=== PATIENT | female | born 1980 | race Caucasian/White ===

== ENCOUNTER 2020-01-04 17:04 | Emergency (ER) | payer OTHER, SELFPAY ==
[2020-01-04 17:26] VITALS: BP 141/85; PULSE 81; RESP 18; TEMP 37.1; O2SAT 100
--- NOTE | 2020-01-04 17:36 | ED.GENADULT ---
HPI - General Adult General Chief complaint: Upper Respiratory Infection Stated complaint: upper respiratory infection Time Seen by Provider: 01/04/20 17:36 Source: patient Mode of arrival: ambulatory Limitations: no limitations History of Present Illness HPI narrative: 39-year-old female patient presents the [facility] care with complaints URI symptoms for the past 3 weeks. Patient states she has had a lot of pain and pressure to her forehead and under her eyes. Patient states she has had runny nose, stuffy nose, sneezing and a little bit of a nonproductive cough. Patient states that time she has had to use her inhaler. Denies any chest pain, nausea, vomiting or diarrhea. Patient states she has been using her inhaler, nasal spray, Zyrtec and Benadryl without much relief. Related Data Home Medications Medication Instructions Recorded Confirmed albuterol sulfate [Ventolin HFA] INHALATION 01/04/20 dextroamphetamine-amphetamine PO 01/04/20 [Adderall XR] duloxetine mg PO 01/04/20 fluticasone propionate INTRANASAL 01/04/20 hydrochlorothiazide 01/04/20 lisinopril 01/04/20 metformin mg 01/04/20 pantoprazole PO 01/04/20 Allergies Allergy/AdvReac Type Severity Reaction Status Date / Time clonazepam Allergy Unknown Verified 08/05/11 15:13 sitagliptin Allergy Unknown Verified 03/30/15 12:26 tramadol Allergy Unknown Verified 03/30/15 12:26 Review of Systems Review of Systems: Narrative: CONSTITUTIONAL: Denies fever, chills, or sweats. EYES: Denies visual changes, redness, or discharge. ENT: Positive rhinorrhea, congestion, sore throat, positive right otalgia. CARDIOVASCULAR: Denies chest pain, palpitations, or edema. RESPIRATORY: Positive nonproductive cough with intermittent dyspnea. GASTROINTESTINAL: Denies abdominal pain, nausea, vomiting, or diarrhea. GENITOURINARY: Denies dysuria or hematuria. SKIN: Denies rash or itching. MUSCULOSKELETAL: Denies back pain, joint pain, or myalgia. NEUROLOGIC: Positive headache, denies numbness, or weakness. PSYCHIATRIC: Denies anxiety or depression. [facility] Past Medical History Medical History (Updated 01/04/20 @ 17:55 by HARRY Morales) Anemia Anxiety Asthma Bronchitis Diabetes Endometriosis GERD (gastroesophageal reflux disease) Hypertension Hypothyroidism Pericarditis Pneumonia Seizures Tonsillitis Tuberculosis Exposed to TB at age 4, took medication Surgical History Surgical History (Updated 01/04/20 @ 17:39 by HARRY Morales) H/O: hysterectomy History of cholecystectomy Hx of tonsillectomy Family History Family History Mother Family history of malignant neoplasm of breast in first degree relative Father Family history of malignant neoplasm of esophagus Sibling Family history of malignant neoplasm of esophagus Social History Social History Alcohol intake: current Comments At the time of my signature I agree with nursing past medical history, surgical, social, and family history. There is no relevant family history pertinent to the presenting complaint. Exam Narrative: Exam Narrative: GENERAL: Well-appearing, well-nourished, and in no acute distress. HEAD: Normocephalic, atraumatic. Tenderness noted to frontal maxillary sinuses on palpation EYES: PERRLA and EOMI. ENT: Nares with erythema and edema noted bilaterally, patent, no rhinorrhea or epistaxis. Mucous membranes moist. Posterior pharynx with slight erythema but no tonsil enlargement no exudates or lesions present. Left ear drum does appear slightly red. NECK: Supple. No lymphadenopathy CHEST: Clear to auscultation. No respiratory distress. Patient able talk in complete sentences. HEART: Regular rate and rhythm. No murmur heard. Normal peripheral pulses. ABDOMEN: Soft, nontender, nondistended, normal active bowel sounds. EXTREMITIES: Normal range of motion. No mick
== END 2020-01-04 18:06 | disposition home or self-care (01) ==
PROVIDERS: Emergency Provider Nurse Practitioner Family
DX: J01.00 Acute maxillary sinusitis, unspecified (principal); Z20.828 Contact with and (suspected) exposure to other viral communicable diseases; Z86.2 Personal history of diseases of the blood and blood-forming organs and certain disorders involving the immune mechanism; F41.9 Anxiety disorder, unspecified; J45.909 Unspecified asthma, uncomplicated; E11.9 Type 2 diabetes mellitus without complications; K21.9 Gastro-esophageal reflux disease without esophagitis; I10 Essential (primary) hypertension; E03.9 Hypothyroidism, unspecified; N80.9 Endometriosis, unspecified; Z79.84 Long term (current) use of oral hypoglycemic drugs
CPT/HCPCS: 87081; 87880; 99213; G0463

== ENCOUNTER 2020-06-13 19:27 | Emergency (ER) | payer OTHER, SELFPAY ==
--- NOTE | 2020-06-13 19:32 | ED.GENADULT ---
HPI - General Adult General Chief complaint: Skin/Abscess/Foreign Body Stated complaint: blisters covering arm/face/hands Time Seen by Provider: 06/13/20 19:32 Source: patient Mode of arrival: ambulatory Limitations: no limitations History of Present Illness HPI narrative: 40-year-old female patient presents to the [facility] with complaints of a rash to the right arm, right index finger and the left side of the nose for the past week. Patient states she was diagnosed with COVID-19 on June 02 and her symptoms started on May 29. Patient states that she did finish her 14-day quarantine. Patient states she is still feeling a little winded at times with some chest pain or shortness of breath that occurs at times. Patient states that she does have history of eczema but states it has never been this bad. Patient states that she has been using some try Symlin cream to the rash denies any itching to the area but states that it sometimes does burn. Patient states she is also been putting some antibiotic ointment on it at night. Related Data Home Medications Medication Instructions Recorded Confirmed lisinopril 5 mg PO DAILY 01/04/20 06/13/20 metformin 500 mg PO DAILY 01/04/20 06/13/20 dextroamphetamine-amphetamine 30 mg PO DAILY 06/13/20 06/13/20 [Adderall XR] duloxetine 60 mg PO DAILY 06/13/20 06/13/20 hydrochlorothiazide 25 mg PO DAILY 06/13/20 06/13/20 Allergies Allergy/AdvReac Type Severity Reaction Status Date / Time Sulfa (Sulfonamide AdvReac Intermediate Nausea and Verified 06/13/20 19:55 Antibiotics) Vomiting Review of Systems Review of Systems: Narrative: CONSTITUTIONAL: Denies fever, chills, or sweats. EYES: Denies visual changes, redness, or discharge. ENT: Denies rhinorrhea, congestion, sore throat, or otalgia. CARDIOVASCULAR: Positive chest pain when laying flat, denies palpitations, or edema. RESPIRATORY: Denies cough, positive intermittent dyspnea. GASTROINTESTINAL: Denies abdominal pain, nausea, vomiting, or diarrhea. GENITOURINARY: Denies dysuria or hematuria. SKIN: Positive rash to right arm, right index finger and left side of nose, denies itching. MUSCULOSKELETAL: Denies back pain, joint pain, or myalgia. NEUROLOGIC: Denies headache, numbness, or weakness. PSYCHIATRIC: Denies anxiety or depression. [facility] Past Medical History Medical History Anemia Anxiety Asthma Bronchitis Diabetes Endometriosis GERD (gastroesophageal reflux disease) Hypertension Hypothyroidism Pericarditis Pneumonia Seizures Tonsillitis Tuberculosis 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 Comments At the time of my signature I agree with nursing past medical history, surgical, social, and family history. There is no relevant family history pertinent to the presenting complaint. Exam Narrative: Exam Narrative: GENERAL: Well-appearing, well-nourished, and in no acute distress. HEAD: Normocephalic, atraumatic. EYES: PERRLA and EOMI. ENT: Nares clear, no rhinorrhea or epistaxis. Mucous membranes moist. NECK: Supple. No lymphadenopathy CHEST: Clear to auscultation. No respiratory distress. Patient able talk in clear complete sentences. HEART: Regular rate and rhythm. murmur heard on auscultation. Normal peripheral pulses. ABDOMEN: Soft, nontender, nondisten
[2020-06-13 19:48] VITALS: BP 144/106; PULSE 90; RESP 16; TEMP 37.2; O2SAT 98
[2020-06-13 19:55] VITALS: BP 144/106; PULSE 90; RESP 16; TEMP 37.2; O2SAT 98
--- NOTE | 2020-06-13 20:06 | ECG_ITS ---
Measurements Intervals [place] Rate: 93 P: 26 HI: 145 QRS: 19 QRSD: 87 T: 71 QT: 352 QTc: 439 Interpretive Statements SINUS RHYTHM BORDERLINE ST-T WAVE ABNORMALITY- ANTEROLAT/HIGH LAT LEADS BASELINE ARTIFACT- II, III, AVF BORDERLINE ECG Electronically Signed On 06-14-2020 7:01:07 RAMP MANAGER by Varun yAon D.O.
[2020-06-13 20:15] VITALS: BP 137/82; PULSE 95
== END 2020-06-13 20:18 | disposition home or self-care (01) ==
PROVIDERS: Emergency Provider Nurse Practitioner Family
DX: L20.82 Flexural eczema (principal); J45.909 Unspecified asthma, uncomplicated; E11.9 Type 2 diabetes mellitus without complications; K21.9 Gastro-esophageal reflux disease without esophagitis; I10 Essential (primary) hypertension; E03.9 Hypothyroidism, unspecified; N80.9 Endometriosis, unspecified
CPT/HCPCS: 93005; 99213; G0463

== ENCOUNTER 2020-09-20 11:30 | Emergency (ER) | payer OTHER, SELFPAY ==
--- NOTE | ~2020-09-20 | CT_ITS ---
EXAMINATION: CT brain wo con DATE: 09/20/2020 11:55 INDICATION: Loss of consciousness. TECHNIQUE: Computed tomography (CT) of the head was performed without intravenous contrast. The mA wa s adjusted according to patient size. Iterative reconstruction technique was employed. The dose-lengt h product was 605.33 mGy-cm. COMPARISON: Head CT 06/22/2007 FINDINGS: There is no intracranial hemorrhage, acute infarction, or abnormal intracranial mass lesion . The ventricles are normal in size. There is a left frontal lateral scalp hematoma. There is mucosal thickening in the paranasal sinuses. The mastoid air cells are normal. The orbits are normal. IMPRESSION: 1. Normal brain. Reviewed, dictated and finalized at location A. UNTING LECTURER IMPRESSION: 1. Normal brain.
--- NOTE | ~2020-09-20 | XR_ITS ---
EXAMINATION: XR hip LT min 3V w AP pelvis DATE: 09/20/2020 12:22 INDICATION: Left hip pain. Fall. TECHNIQUE: An anteroposterior view pelvis and 3 views of left hip on 4 radiographs were obtained. COMPARISON: None. FINDINGS: Bone alignment is normal. No fracture. There is mild osteoarthritis of the hips characteriz ed by tiny osteophytes. IMPRESSION: 1. Mild osteoarthritis of the hips. Reviewed, dictated and finalized at location A. ULATING BATH OPERATOR
--- NOTE | ~2020-09-20 | XR_ITS ---
EXAMINATION: XR ribs LT 2V w CXR 2V DATE: 09/20/2020 12:22 INDICATION: Left chest pain. Fall. TECHNIQUE: Frontal and lateral views of the chest and 3 views of the left ribs were obtained. COMPARISON: Chest 2 views 03/07/2015 FINDINGS: CHEST TWO VIEWS: There is no pneumonia, pleural effusion, or pneumothorax. The heart size is normal. Surgical clips in the right upper quadrant are likely from cholecystectomy. LEFT RIBS: There is no rib fracture. IMPRESSION: 1. No rib fracture. Reviewed, dictated and finalized at location A. WOUND IMPRESSION: 1. No rib fracture.
[2020-09-20 11:32] VITALS: BP 173/96; PULSE 87; RESP 20; TEMP 36.8; O2SAT 100
[2020-09-20 11:45] VITALS: BP 154/79; PULSE 92; RESP 17; TEMP 36.6; O2SAT 98
--- NOTE | 2020-09-20 11:49 | PC.NURSE ---
Pt to CT at this time via stretcher.
[2020-09-20] MEDS: ONDANSETRON HCL ODT 4 MG TABLET PO (12:30)
--- NOTE | 2020-09-20 12:30 | ED.FALL ---
HPI - Fall General Chief Complaint: Fall Stated Complaint: fall, rib pain, loc Time Seen by Provider: 09/20/20 12:09 Source: patient Mode of arrival: ambulatory Limitations: no limitations History of Present Illness HPI Narrative: Patient is a 40-year-old female complaining of left head, left rib and left hip pain after she fell down the stairs prior to arrival. Patient states that she was holding her dog while walking down the stairs and the dog pulled her and that is when she went down the stairs, possible loss of consciousness, lasted for only a few seconds. Patient denies any neck pain, chest pain, abdominal pain or any other extremity pain/injury. Prolonged down time: no Symptoms prior to fall: none Severity scale (1-10): 9 Quality: aching Related Data Home Medications Medication Instructions Recorded Confirmed lisinopril 5 mg PO DAILY 01/04/20 06/13/20 metformin 500 mg PO DAILY 01/04/20 06/13/20 dextroamphetamine-amphetamine 30 mg PO DAILY 06/13/20 06/13/20 [Adderall XR] duloxetine 60 mg PO DAILY 06/13/20 06/13/20 hydrochlorothiazide 25 mg PO DAILY 06/13/20 06/13/20 Allergies Allergy/AdvReac Type Severity Reaction Status Date / Time Sulfa (Sulfonamide AdvReac Intermediate Nausea and Verified 06/13/20 19:55 Antibiotics) Vomiting Review of Systems Review of Systems: All systems reviewed & are unremarkable except as noted in HPI and below Constitutional: Constitutional: Denies body ache(s), Denies chills, Denies excessive sweating, Denies fatigue, Denies fever(s), Denies lethargy, Denies malaise, Denies weakness and Denies weight loss Eyes: Eyes: Denies blurry vision, Denies change in vision and Denies loss of vision ENT: Denies dizziness, Denies ear discharge, Denies headache(s), Denies lip swelling, Denies epistaxis, Denies nasal congestion, Denies neck pain, Denies throat swelling and Denies tongue swelling Cardiovascular: Cardiovascular: Denies chest pain, Denies chest pain at rest, Denies chest pain with activity, Denies diaphoresis, Denies rapid heart rate, Denies edema, Denies irregular heart rhythm, Denies lightheadedness, Denies palpitations, Denies dyspnea and Denies dyspnea on exertion Respiratory: Respiratory: Denies chest congestion, Denies cough, Denies hemoptysis, Denies dyspnea and Denies dyspnea on exertion Gastrointestinal: Gastrointestinal: Denies abdominal pain, Denies melena, Denies hematochezia, Denies diarrhea, Denies nausea, Denies vomiting and Denies hematemesis Musculoskeletal: Musculoskeletal: Denies abnormal gait, Denies deformity, Denies joint swelling, Denies limited range of motion, Denies neck pain and Denies numbness Neurologic: Denies Abnormal speech present, Denies abnormal gait, Denies confusion, Denies dizziness, Denies focal weakness, Denies loss of vision, Denies numbness, Denies Other visual disturbances, Denies Sensory deficit (Neuro) and Denies weakness Psychiatric: Psychiatric: Denies confusion, Denies depression, Denies auditory hallucinations, Denies homicidal ideation and Denies suicidal ideation Endocrine: Endocrine: Denies cold intolerance, Denies excessive sweating, Denies fatigue, Denies heat intolerance and Denies palpitations Hematologic/Lymphatic: Hematologic/Lymphatic: Denies easy bleeding and Denies easy bruising Allergic/Immunologic: Allergic/Immunologic: Denies lip swelling, Denies throat swelling and Denies tongue swelling PMFSH Past Medical History Medical History Anemia Anxiety Asthma Bronchitis Diabetes Endometriosis GERD (gastroesophageal reflux disease) Hypertension Hypothyroidism Pericarditis Pneumonia Seizures Tonsillitis Tuberculosis Exposed to TB at age 4, took medication Surgical History Surgical History H/O: hysterectomy History of cholecystectomy Hx of tonsillectomy Family History Family History (Reviewed 09/20/20 @
[2020-09-20] MEDS: HYDROcodone/acetaminophen (*CRX) 5-325 MG TABLET 1 TAB PO (12:37)
[2020-09-20 13:20] VITALS: BP 118/75; PULSE 78; RESP 16; O2SAT 100
[2020-09-20] MEDS: KETOROLAC 30 MG/ML VIAL (*BKC) IM (13:20)
== END 2020-09-20 13:21 | disposition home or self-care (01) ==
LOC: ANHED 13:12
PROVIDERS: Emergency Provider Emergency Medicine
DX: S09.90XA Unspecified injury of head, initial encounter (principal); S20.212A Contusion of left front wall of thorax, initial encounter; S70.02XA Contusion of left hip, initial encounter; W10.9XXA Fall (on) (from) unspecified stairs and steps, initial encounter
CPT/HCPCS: 70450; 71046; 71100; 73502; 96372; 99284; A9270; J1885

== ENCOUNTER 2020-09-29 08:42 | Emergency (ER) | payer OTHER, SELFPAY ==
--- NOTE | ~2020-09-29 | CT_ITS ---
EXAMINATION: CT diagnostic chest wo con EXAM DATE: 09/29/2020 09:12 INDICATION: Initial encounter following injury, with pain of the left-sided chest. Fall with shortnes s of air. TECHNIQUE: Spiral CT of the chest without contrast. Axial, coronal and sagittal images were reviewe d. Coronal maximum intensity pixel images of chest reviewed. The dose-length product (DLP) for this examination was 690.53 mGy-cm. The exposure was tailored according to patient size (auto mA exposur e control), and iterative reconstruction (ASIR) was used as additional dose reduction technique. Comp arison is made to prior examination from 02/14/2014. FINDINGS: The lungs are clear. There are no pleural or pericardial effusions. Tracheobronchial t ree is patent. There is no mediastinal, hilar or axillary lymphadenopathy. There is no pneumothor ax. Heart normal in size. No evidence of coronary arterial calcification. There are cholecystect abdirizak clips. Splenule. 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 No acute fractures identified. Consider educating patient that even if there is a radiographically oc cult nondisplaced rib fracture, there is no specific treatment other than to refrain from activity th at prevents healing. Mild to moderate thoracic spondylosis. IMPRESSION: 1. Unremarkable CT chest examination. Reviewed, dictated and finalized at location A.
[2020-09-29 08:45] VITALS: BP 141/100; PULSE 100; RESP 20; TEMP 36.4; O2SAT 100
[2020-09-29 09:35] VITALS: BP 130/76; PULSE 81; O2SAT 97
--- NOTE | 2020-09-29 09:53 | ED.FALL ---
HPI - Fall General Chief Complaint: Fall Stated Complaint: rib pain from previous fall Time Seen by Provider: 09/29/20 08:47 History of Present Illness HPI Narrative: Patient is a 40-year-old female who presents ER with left chest wall pain. Ongoing for the last week. Patient reports she fell down her steps at home and suffered injury. She came to the ER and had x-rays of her ribs which showed no fracture. She had been taking muscle relaxers and anti-inflammatories without improvement. Patient has having no runny nose/sore throat/productive cough. No fevers or chills. She does report that she sneezed all day and had sudden increase in her pain on the left side. She also feels like she has some mild swelling beneath her breast on the left side. Patient also reports when she twists to wipe herself while using the restroom she will get pain in her side and then will also have some referred pain into the right side. No numbness or tingling across the chest wall. Related Data Home Medications Medication Instructions Recorded Confirmed lisinopril 5 mg PO DAILY 01/04/20 06/13/20 metformin 500 mg PO DAILY 01/04/20 06/13/20 dextroamphetamine-amphetamine 30 mg PO DAILY 06/13/20 06/13/20 [Adderall XR] duloxetine 60 mg PO DAILY 06/13/20 06/13/20 hydrochlorothiazide 25 mg PO DAILY 06/13/20 06/13/20 Allergies Allergy/AdvReac Type Severity Reaction Status Date / Time Sulfa (Sulfonamide AdvReac Intermediate Nausea and Verified 09/29/20 08:49 Antibiotics) Vomiting Review of Systems Review of Systems: All systems reviewed & are unremarkable except as noted in HPI and below Constitutional: Constitutional: Denies chills, Denies fever(s) and Denies weakness ENT: Denies nasal congestion and Denies sore throat Cardiovascular: Cardiovascular: Reports chest pain, Denies rapid heart rate and Denies radiating jaw, neck or arm pain Respiratory: Respiratory: Denies cough, Denies dyspnea and Denies wheezing Neurologic: Denies focal weakness and Denies numbness PMFSH Past Medical History Medical History Anemia Anxiety Asthma Bronchitis Diabetes Endometriosis GERD (gastroesophageal reflux disease) Hypertension Hypothyroidism Pericarditis Pneumonia Seizures Tonsillitis Tuberculosis 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 HEAD: Normocephalic, atraumatic. CHEST: Clear to auscultation. No respiratory distress. No visual evidence of trauma. Tender palpation along the lateral to anterior chest wall and left side beneath the breast. HEART: Regular rate and rhythm. Normal peripheral pulses. ABDOMEN: Soft, nontender, nondistended. EXTREMITIES: Normal range of motion. No edema. SKIN: Warm, dry, no rash. NEURO: Alert and oriented x3. PSYCH: Normal mood and affect. Course Course Emergency Course: Patient informed of results. Pain improved with IM morphine. Discharge home with supportive care. Vital Signs Vital signs: Vital Signs Temperature 97.6 F 09/29/20 08:45 Pulse Rate 100 09/29/20 08:45 Respiratory Rate 20 09/29/20 08:45 Blood Pressure 141/100 H 09/29/20 08:45 Pulse Oximetry 100 09/29/20 08:45 Temperature 97.6 F 09/29/20 08:45 Pulse
[2020-09-29] MEDS: MORPHINE SULFATE (*CRX) 4 MG/ML INJ IM (10:00)
== END 2020-09-29 11:30 | disposition home or self-care (01) ==
PROVIDERS: Emergency Provider Emergency Medicine
DX: R07.89 Other chest pain (principal); J45.909 Unspecified asthma, uncomplicated; E11.9 Type 2 diabetes mellitus without complications; K21.9 Gastro-esophageal reflux disease without esophagitis; I10 Essential (primary) hypertension; E03.9 Hypothyroidism, unspecified; N80.9 Endometriosis, unspecified; F41.9 Anxiety disorder, unspecified; Z79.84 Long term (current) use of oral hypoglycemic drugs
CPT/HCPCS: 71250; 96372; 99284; J2270

== ENCOUNTER 2021-01-11 12:01 | Emergency (ER) | payer OTHER, SELFPAY ==
--- NOTE | 2021-01-11 12:07 | ED.HA ---
HPI - Headache General Chief Complaint: Headache Stated Complaint: Migraine Time Seen by Provider: 01/11/21 12:07 Source: patient and RN notes reviewed Mode of arrival: ambulatory Limitations: no limitations History of Present Illness HPI Narrative: 40 yo female presents to the [facility] with C/O a migraine headache for the last 3 days. States that it feels like her normal migraines, Just not getting better with the medications that were prescribed. States that on Friday she took her migraine medication that dissolves under her tongue. She said she cannot take more than 6 in a 24-hour period. States the nausea is pretty bad. The migraine is making her anxiety worse. Patient is sensitive to light and sound. Patient is Covid vaccinated, states that she did see a corrie MD elicited complaint: migraine Pertinent past history: migraines and hypertension Onset (ago): day(s) Onset description: gradually Severity: similar to previous episodes Related Data Home Medications Medication Instructions Recorded Confirmed metformin 1,000 mg PO DAILY 01/04/20 01/11/21 dextroamphetamine-amphetamine 30 mg PO DAILY 06/13/20 01/11/21 [Adderall XR] duloxetine 60 mg PO DAILY 06/13/20 01/11/21 losartan 50 mg PO DAILY 01/11/21 01/11/21 mirtazapine 7.5 mg PO HS 01/11/21 01/11/21 Allergies Allergy/AdvReac Type Severity Reaction Status Date / Time Sulfa (Sulfonamide AdvReac Intermediate Nausea and Verified 01/11/21 13:04 Antibiotics) Vomiting Review of Systems Review of Systems: All systems reviewed & are unremarkable except as noted in HPI and below Constitutional: Constitutional: Reports no additional constitutional complaints, Denies chills and Denies fever(s) Eyes: Eyes: Reports as per HPI, Denies change in vision and Reports photophobia ENT: Reports system reviewed and no additional complaints, except as documented, Denies dysphagia, Denies vertigo, Denies dizziness, Denies nasal congestion and Denies sore throat Cardiovascular: Cardiovascular: Reports no additional cardiovascular complaints and Denies chest pain Respiratory: Respiratory: Reports no additional respiratory complaints, Denies cough, Denies dyspnea and Denies wheezing Gastrointestinal: Gastrointestinal: Reports as per HPI, Denies abdominal pain, Denies diarrhea, Reports nausea and Denies vomiting Genitourinary: Genitourinary: Reports no additional female genitourinary complaints Musculoskeletal: Musculoskeletal: Reports no additional musculoskeletal complaints, Denies back pain and Denies muscle cramps Integumentary/Breasts: Skin/Breast: Reports system reviewed and no additional complaints, except as docu Neurologic: Reports as per HPI, Denies confusion, Denies vertigo, Denies dizziness, Denies syncope, Reports headache(s), Denies focal weakness, Denies numbness and Denies weakness Psychiatric: Psychiatric: Reports as per HPI and Reports anxiety Allergic/Immunologic: Allergic/Immunologic: Reports no additional allergic/immunologic complaints PMFSH Past Medical History Medical History Anemia Anxiety Asthma Bronchitis Diabetes Endometriosis GERD (gastroesophageal reflux disease) Hypertension Hypothyroidism Pericarditis Pneumonia Seizures Tonsillitis Tuberculosis 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
[2021-01-11 12:12] VITALS: BP 148/61; PULSE 77; RESP 18; TEMP 36.7; O2SAT 98
[2021-01-11] MEDS: ONDANSETRON HCL ODT 4 MG TABLET PO (12:31)
[2021-01-11] MEDS: diphenhydrAMINE HCl CAP 25 MG CAPSULE 50 MG PO (12:31)
[2021-01-11] MEDS: KETOROLAC (*BKC) 60 MG/2 ML VIAL IM (12:31)
== END 2021-01-11 13:17 | disposition home or self-care (01) ==
PROVIDERS: Emergency Provider Nurse Practitioner
DX: G43.909 Migraine, unspecified, not intractable, without status migrainosus (principal); I20.9 Angina pectoris, unspecified; R01.1 Cardiac murmur, unspecified; E78.00 Pure hypercholesterolemia, unspecified; I10 Essential (primary) hypertension; J45.909 Unspecified asthma, uncomplicated; K21.9 Gastro-esophageal reflux disease without esophagitis; E11.9 Type 2 diabetes mellitus without complications; E03.9 Hypothyroidism, unspecified; F98.8 Other specified behavioral and emotional disorders with onset usually occurring in childhood and adolescence; Z85.89 Personal history of malignant neoplasm of other organs and systems
CPT/HCPCS: 96372; 99213; A9270; G0463; J1885

== ENCOUNTER 2021-12-01 16:46 | Emergency (ER) | payer OTHER, MEDICAID, SELFPAY ==
--- NOTE | ~2021-12-01 | CT_ITS ---
EXAMINATION: CT abdomen pelvis wo con DATE: 12/01/2021 18:09 INDICATION: L flank pain, N/V, Hx of stones TECHNIQUE: Computed tomography (CT) of the abdomen and pelvis was performed without intravenous contr ast. Automated exposure control and iterative reconstruction technique were employed. The dose-length product was 1524.91 mGy-cm. COMPARISON: 08/25/2011 FINDINGS: Lower thorax: Unremarkable Liver: Normal. Biliary/Gallbladder: Gallbladder is absent. No bile duct dilation. Pancreas: No mass or duct dilation. Spleen: Normal. Adrenals:No mass. Kidneys: Punctate nonobstructive left renal calculus. No hydronephrosis or mass. GI tract: No small or large bowel dilation. Normal appendix. Mesentery/Peritoneum: No ascites, mass, or free air. Retroperitoneum: No mass. Pelvis: Pelvic organs are within normal limits. Soft Tissues: Soft tissues and body wall unremarkable. Bones: No acute osseous finding. IMPRESSION: No acute abdominopelvic process detected. Specifically there is no evidence of obstructive uropathy. Reviewed, dictated and finalized at location K.
--- NOTE | ~2021-12-01 | CT_ITS ---
EXAMINATION: CTA chest PE protocol DATE: 12/01/2021 22:03 INDICATION: Left flank and mid back pain TECHNIQUE: Computed tomography (CT) pulmonary angiogram of the chest was performed with 100 mL Omnipa que-350 intravenous contrast. Additional 3D reconstructions utilizing coronal maximum intensity proje ction (MIP) were performed. Automated exposure control and iterative reconstruction technique were em ployed. The dose-length product was 1128.77 mGy-cm. COMPARISON: None FINDINGS: Excellent contrast opacification of the pulmonary arteries. There is mild streak artifact from dense contrast in the superior vena cava and right atrium. No significant motion artifact yielding diagnost ic quality study which demonstrates no pulmonary embolism. No pneumonia, pulmonary edema, pleural eff usion or pneumothorax. Heart size is normal. No pericardial effusion. Thoracic aorta is normal in sarah iber with no dissection. No pathologically enlarged abdominal or pelvic lymphadenopathy. Cholecystect abdirizak clips at the gallbladder fossa. Moderate thoracic spondylosis. IMPRESSION: 1. No pulmonary embolism or other acute cardiopulmonary disease. Reviewed, dictated and finalized at location A.
[2021-12-01 17:21] LABS: Basophils Absolute Auto 0.1 K/mm3 (0.0-0.1); Basophils Percent Auto 0.7 % (0.2-1.2); Eosinophils Absolute Auto 0.3 K/mm3 (0-0.3); Eosinophils Percent Auto 2.5 % (0-4.4); Hematocrit 44.5 % (37.0-47.0); Hemoglobin 13.9 g/dL (12.0-15.0); Immature Granulocyte Absolute 0.05 K/mm3 (0.00-0.031); Immature Granulocyte Percent A 0.5 % (0-0.5); Lymphocytes Absolute Auto 2.77 K/mm3 (0.9-3.2); Lymphocytes Percent Auto 26.2 % (18.3-44.2); Mean Corpuscular HGB Conc 31.2 g/dl (32-36); Mean Corpuscular Hemoglobin 26.5 pg (26-34); Mean Corpuscular Volume 84.9 fl (80-100); Mean Platelet Volume 9.5 fl (7.4-10.4); Monocytes Percent Auto 9.6 % (2.6-8.5); Neutrophils Absolute Auto 6.4 K/mm3 (1.3-6.7); Neutrophils Percent Auto 60.5 % (45.5-73.1); Platelet Count Result 335 k/mm3 (150-375); Red Blood Count 5.24 M/mm3 (4.2-5.4); White Blood Count 10.6 K/mm3 (4.5-10.0)
[2021-12-01 17:31] LABS: Alanine Aminotransferase 20 U/L (6-35); Albumin Level 4.1 g/dL (3.5-5.1); Alkaline Phosphatase 74 U/L (38-126); Anion Gap 7 mmol/L (8-16); Aspartate Amino Transferase 28 U/L (14-36); Bilirubin,Total 0.2 mg/dL (0.2-1.3); Blood Urea Nitrogen 20 mg/dL (7-17); Calcium 8.8 mg/dL (8.4-10.2); Carbon Dioxide 32 mmol/L (22-30); Chloride 105 mmol/L (98-107); Estimated CRCL calculation 88 ml/min; Estimated Glomerular Filt Rate > 60; Glucose 124 mg/dL (65-110); Lipase 151 U/L (23-300); Sodium 144 mmol/L (137-145)
--- NOTE | 2021-12-01 17:47 | ED.GENADULT ---
HPI - General Adult General Chief complaint: Urogenital-Female Stated complaint: left flank pain Time Seen by Provider: 12/01/21 16:58 Source: patient Mode of arrival: ambulatory Limitations: no limitations History of Present Illness HPI narrative: Patient is a 41-year-old female who presents the ED with report of left flank/mid back pain. Patient reports 13 days ago, she began having urinary symptoms, including mild dysuria, small volume urines, urinary frequency and urgency. She has a history of urinary tract infection and states this felt similar. Over the last 1 week, she has had pain in her left flank, radiating around to her left side. No abdominal pain. The pain became significantly worse today, which prompted her to come to the ED. She tried taking Tylenol and Motrin around 7 AM this morning without much relief. She also reports having nausea and vomiting today. No fever, chills, diarrhea, constipation, hematemesis. Patient does have a history of kidney stones and states this feels similar. Last stone was over 7 years ago. She does not follow with a urologist. She has required lithotripsy in the past for her stones. No CP, SOB, pain with inspiration, BLE pain or edema. Related Data Home Medications Medication Instructions Recorded Confirmed metformin 1,000 mg PO DAILY 01/04/20 01/11/21 dextroamphetamine-amphetamine 30 mg PO DAILY 06/13/20 01/11/21 [Adderall XR] duloxetine 60 mg PO DAILY 06/13/20 01/11/21 losartan 50 mg PO DAILY 01/11/21 01/11/21 mirtazapine 7.5 mg PO HS 01/11/21 01/11/21 Allergies Allergy/AdvReac Type Severity Reaction Status Date / Time Sulfa (Sulfonamide AdvReac Intermediate Nausea and Verified 12/01/21 16:58 Antibiotics) Vomiting Review of Systems Review of Systems: CONSTITUTIONAL: Denies fever, chills. ENT: Denies rhinorrhea, congestion. CARDIOVASCULAR: Denies chest pain, pain with inspiration. RESPIRATORY: Denies cough or dyspnea. GASTROINTESTINAL: Reports nausea/vomiting. Denies abdominal pain, constipation, hematemesis, diarrhea. GENITOURINARY: Reports dysuria, small volume urine, urinary frequency, urgency. SKIN: Denies rash or itching. MUSCULOSKELETAL: Reports L flank/mid back pain, radiating to L side. 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 HEAD: Normocephalic, atraumatic. NECK: Supple. No adenopathy, no masses. RESPIRATORY: Airway patent, respirations nonlabored. Clear to auscultation bilaterally, no rales, rhonchi, wheezing. CARDIOVASCULAR: Regular rate and rhythm without murmurs, rubs, or gallops. Radial pulses 2+ and equal bilaterally. ABDOMINAL: Soft, nontender, nondistended, no hepatosplenomegaly. Normoactive BS. Left-sided CVA tenderness to light percussion. No right-sided CVA tenderness. MUSCULOSKELETAL: Moves all extremities. Strength/ROM intact without gross deformities. Tenderness to palpation in the left flank/mid back wit
[2021-12-01] MEDS: SODIUM CHLORIDE 0.9% IV 1,000 ML 999 ML IV CONT (18:10)
[2021-12-01] MEDS: ONDANSETRON INJ 4 MG/2 ML VIAL IV PUSH (18:11)
[2021-12-01] MEDS: MORPHINE SULFATE (*CRX) 4 MG/ML INJ 2 MG IV PUSH (18:11)
[2021-12-01] MEDS: KETOROLAC 30 MG/ML VIAL (*BKC) IV PUSH (18:56)
[2021-12-01 19:11] LABS: Appearance Urine Clear (Clear); Bilirubin Urine Negative (Negative); Blood Urine Negative (Negative); Color Urine Yellow (Yellow); Glucose Urine UA Negative (Negative); Ketones Urine Negative (Negative); Leukocyte Esterase Ur Trace LEU/UL (Negative); Nitrate Urine Negative (Negative); Protein Urine Negative (Negative); Specific Grav Ur 1.025 (1.001-1.035); pH Urine 6.5 (5.0-9.0)
[2021-12-01 19:27] LABS: Mucus Urine Rare /lpf; RBC Urine 0-2 /hpf (0-2); Squamous Epithelial Cell Urine Moderate /hpf (Few)
[2021-12-01 19:30] LABS: Add Urine Microscopic? YES
[2021-12-01 20:00] VITALS: BP 143/77; PULSE 77; RESP 16; O2SAT 100
[2021-12-01] MEDS: MORPHINE SULFATE (*CRX) 4 MG/ML INJ IV PUSH (20:36)
[2021-12-01 20:50] LABS: D Dimer 1.93 ug/mL (<0.48)
[2021-12-01] MEDS: CIPROFLOXACIN 500 MG TAB PO (22:52)
[2021-12-01 22:54] VITALS: BP 157/102; PULSE 73; RESP 16; O2SAT 98
== END 2021-12-01 23:12 | disposition home or self-care (01) ==
PROVIDERS: Physician Assistant; Emergency Provider General Practice; PCP Family Medicine
DX: N39.0 Urinary tract infection, site not specified (principal); E11.9 Type 2 diabetes mellitus without complications; J45.909 Unspecified asthma, uncomplicated; E03.9 Hypothyroidism, unspecified; K21.9 Gastro-esophageal reflux disease without esophagitis; F41.9 Anxiety disorder, unspecified; Z87.01 Personal history of pneumonia (recurrent); Z86.2 Personal history of diseases of the blood and blood-forming organs and certain disorders involving the immune mechanism; Z79.84 Long term (current) use of oral hypoglycemic drugs; Z87.442 Personal history of urinary calculi
CPT/HCPCS: 36415; 71275; 74176; 80053; 81001; 83690; 85025; 85380; 87086; 87088; 96361; 96365; 96375; 96376; 99284; A9270; J0131; J1885; J2270; J2405; J7030; Q9967

== ENCOUNTER 2022-06-08 16:36 | Emergency (ER) | payer OTHER, MEDICAID, SELFPAY ==
[2022-06-08 16:54] VITALS: BP 131/86; PULSE 81; RESP 20; TEMP 36.6; O2SAT 99
--- NOTE | 2022-06-08 17:54 | ED.WOUNDLAC ---
HPI - Wound/Laceration General Chief Complaint: Wound/Laceration Stated Complaint: Wound on Back Of Head Time Seen by Provider: 06/08/22 17:54 Source: patient Mode of arrival: ambulatory Limitations: no limitations History of Present Illness HPI narrative: 42 y/o female presented for c/o sores to the back of her head worsening for the last 2 days. Sores are painful, described as burning and tender. States they are spreading towards the left ear. Feels 'poking' sensation inside of the left ear. Denies changes to lotion, soap, detergent or medication. Denies other lesions on her body. No one else in the house with similar lesions. Related Data Home Medications Medication Instructions Recorded Confirmed metformin 1,000 mg tablet 1,000 mg PO DAILY 01/04/20 06/08/22 dextroamphetamine-amphetamine ER 30 mg PO DAILY 06/13/20 06/08/22 30 mg 24hr capsule,extend release (Adderall XR) duloxetine 60 mg capsule,delayed 60 mg PO DAILY 06/13/20 06/08/22 release mirtazapine 15 mg tablet 7.5 mg PO HS 01/11/21 06/08/22 losartan 100 1 tablet PO DAILY 06/08/22 06/08/22 mg-hydrochlorothiazide 25 mg tablet rimegepant 75 mg disintegrating 75 mg PO DIRECTED 06/08/22 06/08/22 tablet (Nurtec ODT) Allergies Allergy/AdvReac Type Severity Reaction Status Date / Time Sulfa (Sulfonamide AdvReac Intermediate Nausea and Verified 06/08/22 16:47 Antibiotics) Vomiting Review of Systems Review of Systems: CONSTITUTIONAL: Denies body aches, fever, chills, or sweats. EYES: Denies visual changes, redness, or discharge. ENT: Denies rhinorrhea, congestion CARDIOVASCULAR: Denies chest pain, palpitations, or edema. RESPIRATORY: Denies cough or dyspnea. GASTROINTESTINAL: Denies abdominal pain, nausea, vomiting, or diarrhea. SKIN: per HPI MUSCULOSKELETAL: Denies back pain, joint pain, or myalgia. NEUROLOGIC: Denies headache, numbness, tingling, or weakness. 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 Please see nursing chart for further information. There is no relevant family history pertinent to the presenting complaint Exam Narrative: GENERAL: Well-appearing HEAD: Normocephalic, atraumatic. EYES: conjunctivae clear, and EOMI. ENT: Mucous membranes moist. Oropharynx without edema, erythema or lesions. NECK: Supple. No lymphadenopathy CHEST: Clear to auscultation. HEART: Regular rate and rhythm. SKIN: Warm, dry. Scattered red papules to posterior head, left posterior ear, and external ear. Sites are tender to palpation. No active drainage. NEURO: Alert and oriented x3. Course Course Emergency Course: Patient is aware of diagnosis, understands and agrees to treatment plan. Anticipatory guidance given. Patient agrees to follow-up as directed and is aware of reasons to seek care at the emergency department. Portions of this record may have been created with voice recognition software
== END 2022-06-08 18:16 | disposition home or self-care (01) ==
PROVIDERS: Emergency Provider Nurse Practitioner Family; PCP Family Medicine
DX: B02.9 Zoster without complications (principal); I10 Essential (primary) hypertension; E03.9 Hypothyroidism, unspecified; E11.9 Type 2 diabetes mellitus without complications
CPT/HCPCS: 99213; G0463

== ENCOUNTER 2022-08-20 17:08 | Emergency (ER) | payer OTHER, MEDICAID, SELFPAY ==
[2022-08-20 17:19] VITALS: BP 142/80; PULSE 81; RESP 16; TEMP 36.6; O2SAT 98
--- NOTE | 2022-08-20 17:50 | ED.HA ---
HPI - Headache General Chief Complaint: Headache Stated Complaint: migraine Time Seen by Provider: 08/20/22 17:54 Source: patient Mode of arrival: ambulatory Limitations: no limitations History of Present Illness HPI Narrative: 42-year-old female presented for complaint of migraine for 4 days. pain described as stabbing to the forehead and eyes. She took Nurtec at the onset, which caused heart racing and she therefore has not taken any more. She has been taking rizatriptan and Tylenol. Pain waxes/wanes in intensity but does not completely resolve. Rates 7/10. She endorses photophobia and vomiting. Denies cough, shortness of breath, wheezing, fevers or chills. Endorses significant stress. Related Data Home Medications Medication Instructions Recorded Confirmed dextroamphetamine-amphetamine ER 30 mg PO DAILY 06/13/20 08/20/22 30 mg 24hr capsule,extend release (Adderall XR) duloxetine 60 mg capsule,delayed 60 mg PO DAILY 06/13/20 08/20/22 release losartan 100 1 tablet PO DAILY 06/08/22 08/20/22 mg-hydrochlorothiazide 25 mg tablet rimegepant 75 mg disintegrating 75 mg PO DIRECTED 06/08/22 08/20/22 tablet (Nurtec ODT) rizatriptan 10 mg tablet 10 mg PO DIRECTED 08/20/22 08/20/22 Allergies Allergy/AdvReac Type Severity Reaction Status Date / Time Sulfa (Sulfonamide AdvReac Intermediate Nausea and Verified 08/20/22 17:18 Antibiotics) Vomiting Review of Systems Review of Systems: CONSTITUTIONAL: Denies body aches, fever, chills, or sweats. EYES: Denies redness, or discharge. ENT: Denies rhinorrhea, congestion, sore throat, or otalgia. CARDIOVASCULAR: Denies chest pain, palpitations, or edema. RESPIRATORY: Denies cough or dyspnea. GASTROINTESTINAL: Denies abdominal pain, or diarrhea. SKIN: Denies rash, itching, or wounds. MUSCULOSKELETAL: Denies back pain, joint pain, or myalgia. NEUROLOGIC: Denies numbness, tingling, or weakness. 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 Please see nursing chart for further information. There is no relevant family history pertinent to the presenting complaint Exam Narrative: GENERAL: Ill-appearing, in no acute distress. HEAD: Normocephalic, atraumatic. EYES: EOMI. No redness or drainage. Conjunctivae normal. ENT: Mucous membranes pink and moist. No rhinorrhea. TMs normal bilaterally. Throat normal. Uvula midline. NECK: Normal AROM. Supple. No lymphadenopathy. CHEST: No respiratory distress. Clear to auscultation. HEART: Regular rate and rhythm. No murmur appreciated. Normal peripheral pulses. SKIN: Warm, dry, no rash. Capillary refill normal. Normal skin turgor. NEURO: No focal deficits. Alert and oriented x3. Gait steady. PSYCH: Normal affect. Course Course Emergency Course: Patient is aware of diagnosis, understands and
[2022-08-20] MEDS: KETOROLAC (*BKC) 60 MG/2 ML VIAL IM (18:11)
[2022-08-20] MEDS: diphenhydrAMINE HCl CAP 25 MG CAPSULE PO (18:12)
== END 2022-08-20 18:47 | disposition home or self-care (01) ==
PROVIDERS: Emergency Provider Nurse Practitioner Family
DX: G43.909 Migraine, unspecified, not intractable, without status migrainosus (principal); J45.909 Unspecified asthma, uncomplicated; E11.9 Type 2 diabetes mellitus without complications; N80.9 Endometriosis, unspecified; K21.9 Gastro-esophageal reflux disease without esophagitis; I10 Essential (primary) hypertension; E03.9 Hypothyroidism, unspecified
CPT/HCPCS: 96372; 99213; A9270; G0463; J1885

== ENCOUNTER 2022-11-18 16:01 | Emergency (ER) | payer OTHER, MEDICAID, SELFPAY ==
[2022-11-18 16:24] VITALS: BP 145/90; PULSE 87; RESP 18; TEMP 36.8; O2SAT 96
--- NOTE | 2022-11-18 17:03 | ED.GENADULT ---
HPI - General Adult General Chief complaint: Headache Stated complaint: mares/abd pain Time Seen by Provider: 11/18/22 16:45 History of Present Illness HPI narrative: 42-year-old female presents with headache, nausea, vomiting, and light sensitivity. Patient states symptoms started yesterday and is like typical migraine headache. Patient is on Topamax daily and took sublingual sumatriptan with no relief. Patient states the pain starts in the back of her head and radiates to the front. Patient denies fevers, neck pain, or any other symptoms Onset (ago): day(s) (1) Associated symptoms: headaches and nausea/vomiting Related Data Home Medications Medication Instructions Recorded Confirmed dextroamphetamine-amphetamine ER 30 mg PO DAILY 06/13/20 08/20/22 30 mg 24hr capsule,extend release (Adderall XR) duloxetine 60 mg capsule,delayed 60 mg PO DAILY 06/13/20 08/20/22 release losartan 100 1 tablet PO DAILY 06/08/22 08/20/22 mg-hydrochlorothiazide 25 mg tablet rimegepant 75 mg disintegrating 75 mg PO DIRECTED 06/08/22 08/20/22 tablet (Nurtec ODT) rizatriptan 10 mg tablet 10 mg PO DIRECTED 08/20/22 08/20/22 Allergies Allergy/AdvReac Type Severity Reaction Status Date / Time Sulfa (Sulfonamide AdvReac Intermediate Nausea and Verified 11/18/22 16:26 Antibiotics) Vomiting Review of Systems Review of Systems: A 10 system review of systems was completed on the patient and is negative except for what is stated in the HPI. Nursing and ancillary documentation was reviewed. 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 HEAD: Normocephalic, atraumatic. EYES: PERRLA and EOMI. light sensitivity ENT: Nares clear, no rhinorrhea or epistaxis. Mucous membranes moist. NECK: Supple. CHEST: Clear to auscultation. No respiratory distress. HEART: Regular rate and rhythm. No murmur heard. Normal peripheral pulses. ABDOMEN: Soft, nontender, nondistended, normal active bowel sounds. EXTREMITIES: Normal range of motion. No edema. SKIN: Warm, dry, no rash. NEURO: No focal deficits. Alert and oriented x3. PSYCH: Normal mood and affect. Course Course Emergency Course: Patient having relief of headache after migraine cocktail. Patient requesting an albuterol treatment for asthma. We will p.o. challenge prior to discharge. With close follow-up with PCP Reevaluation(s) Reevaluation #1: Improved Date: 11/18/22 Time: 18:04 Vital Signs Vital signs: Vital Signs Temperature 36.8 C 11/18/22 16:24 Pulse Rate 87 11/18/22 16:24 Respiratory Rate 18 11/18/22 16:24 Blood Pressure 145/90 H 11/18/22 16:24 Pulse Oximetry 96 11/18/22 16:24 Temperature 36.8 C 11/18/22 16:24 Pulse Rate 87 11/18/22 16:24 Respiratory Rate 18 11/18/22 16:24 Blood Pressure 145/90 H 11/18/22 16:24 Pulse Oximetry 96 11/18/22 16:24 Medical Decision Making Vital Signs Vital Signs: Vital Signs Temperature 36.8 C
[2022-11-18] MEDS: SODIUM CHLORIDE 0.9% IV 1,000 ML 999 ML IV CONT (17:19)
[2022-11-18] MEDS: PROCHLORPERAZINE EDISYLATE 10 MG/2 ML VIAL IV PUSH (17:20)
[2022-11-18] MEDS: diphenhydrAMINE HCl INJ 50 MG/ML VIAL 25 MG IV PUSH (17:20)
[2022-11-18] MEDS: KETOROLAC 30 MG/ML VIAL (*BKC) IV PUSH (17:20)
[2022-11-18 17:34] LABS: Glucose Point of Care 129 mg/dl (65-105)
[2022-11-18] MEDS: ALBUTEROL SULFATE NEB 2.5 MG/3 ML INH INHALATION (18:00)
[2022-11-18 18:15] VITALS: PULSE 87
== END 2022-11-18 19:25 | disposition home or self-care (01) ==
PROVIDERS: Emergency Provider Nurse Practitioner Family; PCP Family Medicine
DX: G43.909 Migraine, unspecified, not intractable, without status migrainosus (principal); D64.9 Anemia, unspecified; F41.9 Anxiety disorder, unspecified; J45.909 Unspecified asthma, uncomplicated; E11.9 Type 2 diabetes mellitus without complications; K21.9 Gastro-esophageal reflux disease without esophagitis; E03.9 Hypothyroidism, unspecified; I10 Essential (primary) hypertension; G40.909 Epilepsy, unspecified, not intractable, without status epilepticus
CPT/HCPCS: 82948; 94640; 96361; 96374; 96375; 99284; J0780; J1200; J1885; J7030

== ENCOUNTER 2023-04-25 11:50 | Emergency (ER) | payer OTHER, MEDICAID, SELFPAY ==
[2023-04-25 12:05] VITALS: BP 132/74; PULSE 72; RESP 22; TEMP 36.8; O2SAT 99
--- NOTE | 2023-04-25 12:31 | ED.GENADULT ---
HPI - General Adult General Chief complaint: Upper Respiratory Infection Stated complaint: Sinus Time Seen by Provider: 04/25/23 12:31 Source: patient, RN notes reviewed and old records reviewed Mode of arrival: ambulatory Limitations: no limitations History of Present Illness HPI narrative: 42-year-old female presents to the [facility] with complaints of sinus pain and pressure for 1 month. Was seen a month ago and states that she did get better however it recently return. States that she has felt fever I will, drainage from her left eye was noted this morning. Has not followed up with her primary care provider or ear nose throat. Onset (ago): month(s) (1) Related Data Home Medications Medication Instructions Recorded Confirmed dextroamphetamine-amphetamine ER 30 mg PO DAILY 06/13/20 04/25/23 30 mg 24hr capsule,extend release (Adderall XR) duloxetine 60 mg capsule,delayed 60 mg PO DAILY 06/13/20 04/25/23 release losartan 100 1 tablet PO DAILY 06/08/22 04/25/23 mg-hydrochlorothiazide 25 mg tablet rimegepant 75 mg disintegrating 75 mg PO DIRECTED 06/08/22 04/25/23 tablet (Nurtec ODT) rizatriptan 10 mg tablet 10 mg PO DIRECTED 08/20/22 04/25/23 ondansetron 8 mg disintegrating 8 mg PO DIRECTED 04/25/23 04/25/23 tablet semaglutide 0.25 mg or 0.5 mg (2 0.25 mg subcut DIRECTED 04/25/23 04/25/23 mg/3 mL) subcutaneous pen injector (Ozempic) Allergies Allergy/AdvReac Type Severity Reaction Status Date / Time Sulfa (Sulfonamide AdvReac Intermediate Nausea and Verified 04/25/23 11:53 Antibiotics) Vomiting Review of Systems Review of Systems: All systems reviewed & are unremarkable except as noted in HPI and below Constitutional: Constitutional: Reports no additional constitutional complaints Eyes: Eyes: Reports no additional eye complaints ENT: Reports as per HPI and Reports sinus pressure Cardiovascular: Cardiovascular: Reports no additional cardiovascular complaints, Denies chest pain and Denies dyspnea Respiratory: Respiratory: Reports no additional respiratory complaints, Denies chest congestion, Denies cough and Denies dyspnea Gastrointestinal: Gastrointestinal: Reports no additional gastrointestinal complaints, Denies abdominal pain, Denies nausea and Denies vomiting Musculoskeletal: Musculoskeletal: Reports no additional musculoskeletal complaints Integumentary/Breasts: Skin/Breast: Reports system reviewed and no additional complaints, except as docu Neurologic: Reports system reviewed and no additional complaints, except as documented Psychiatric: Psychiatric: Reports no additional psychiatric complaints Allergic/Immunologic: Allergic/Immunologic: Reports no additional allergic/immunologic complaints PMFSH Past Medical History Medical History Anemia Anxiety Asthma Bronchitis Diabetes Endometriosis GERD (gastroesophageal reflux disease) Hypertension Hypothyroidism Pericarditis Pneumonia Seizures Tonsillitis Tuberculosis 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 There is no relevant family history pertinent to the patient complaint. Exam Const: General: cooperative, healthy
== END 2023-04-25 12:43 | disposition home or self-care (01) ==
PROVIDERS: Emergency Provider Nurse Practitioner; PCP Family Medicine
DX: J32.9 Chronic sinusitis, unspecified (principal); I10 Essential (primary) hypertension; E03.9 Hypothyroidism, unspecified; E11.9 Type 2 diabetes mellitus without complications; Z79.899 Other long term (current) drug therapy
CPT/HCPCS: 99213; G0463

== ENCOUNTER 2023-08-03 12:07 | Emergency (ER) | payer OTHER, MEDICAID, SELFPAY ==
[2023-08-03 12:25] VITALS: BP 134/82; PULSE 71; RESP 20; TEMP 36.4; O2SAT 98
--- NOTE | 2023-08-03 12:41 | ED.GENADULT ---
HPI - General Adult General Chief complaint: Upper Respiratory Infection Stated complaint: Sinus Source: patient Mode of arrival: ambulatory Limitations: no limitations History of Present Illness HPI narrative: Patient presents for evaluation of sick symptoms for the last 3 days. Symptoms include sinus congestion, drainage, cough, chest congestion, sore throat, nausea, vomiting, body aches and fever. Her is being evaluated her for similar symptoms. She does not smoke. She has tried taking zyrtec for her symptoms. Related Data Home Medications Medication Instructions Recorded Confirmed dextroamphetamine-amphetamine ER 30 mg PO DAILY 06/13/20 08/03/23 30 mg 24hr capsule,extend release (Adderall XR) losartan 100 1 tablet PO DAILY 06/08/22 08/03/23 mg-hydrochlorothiazide 25 mg tablet semaglutide 0.25 mg or 0.5 mg (2 0.25 mg subcut DIRECTED 04/25/23 08/03/23 mg/3 mL) subcutaneous pen injector (Ozempic) albuterol sulfate 90 mcg/actuation inhalation 08/03/23 aerosol inhaler topiramate 100 mg tablet (Topamax) 100 mg PO DAILY 08/03/23 08/03/23 Allergies Allergy/AdvReac Type Severity Reaction Status Date / Time Sulfa (Sulfonamide AdvReac Intermediate Nausea and Verified 08/03/23 12:57 Antibiotics) Vomiting Review of Systems Review of Systems: CONSTITUTIONAL: Reports fever and sweats. EYES: Denies visual changes, redness, or discharge. ENT: Reports sinus congestion, drainage, sore throat and pressure in both ears CARDIOVASCULAR: Denies chest pain, palpitations, or edema. RESPIRATORY: reports cough and shortness of breath GASTROINTESTINAL: reports nausea and vomiting. Denies abdominal pain. GENITOURINARY: Denies dysuria or hematuria. SKIN: Denies rash or itching. MUSCULOSKELETAL: Reports generalized body aches NEUROLOGIC: Denies headache, numbness, dizziness, or weakness. PSYCHIATRIC: Denies anxiety or depression. [facility] Past Medical History Medical History (Updated 08/03/23 @ 14:01 by Froilan Browning, [facility], ) Acute viral syndrome Anemia Anxiety Asthma Bronchitis Diabetes Endometriosis GERD (gastroesophageal reflux disease) Hypertension Hypothyroidism Pericarditis Pneumonia Seizures Tonsillitis Tuberculosis Exposed to TB at age 4, took medication Surgical History Surgical History H/O: hysterectomy History of cholecystectomy Hx of tonsillectomy Family History Family History Mother Family history of malignant neoplasm of breast in first degree relative Father Family history of malignant neoplasm of esophagus Sibling Family history of malignant neoplasm of esophagus Social History Social History Alcohol intake: current Living arrangements: with family Gender identity (if verbalized by the patient): Female Sexual Orientation (if Verbalized by the Patient): Straight or Heterosexual Spiritual care concerns: No Exam Narrative: GENERAL: appears acutely ill but nontoxic HEAD: Normocephalic, atraumatic. EYES: PERRLA and EOMI. ENT: Nares clear, no rhinorrhea or epistaxis. Mucous membranes moist. Oropharynx without tonsillar hypertrophy exudate or other lesions. bilateral tympanic membrane erythema NECK: Supple. No adenopathy or masses. No carotid bruits or JVD CHEST: Clear to auscultation. No respiratory distress. No wheezes rales or rhonchi HEART: Regular rate and rhythm. No murmur heard. Normal peripheral pulses. ABDOMEN: Soft, nontender, nondistended, normal active bowel sounds. EXTREMITIES: Normal range of motion. No edema. SKIN: Warm, dry, no rash. NEURO: No focal deficits. Alert and oriented x3. PSYCH: Normal mood and affect. Course Course Emergency Course: this is a 43-year-old female who presented for evaluation of sick symptoms. Strep,
== END 2023-08-03 14:06 | disposition home or self-care (01) ==
PROVIDERS: Emergency Provider Nurse Practitioner; PCP Family Medicine
DX: B34.9 Viral infection, unspecified (principal); Z20.822 Contact with and (suspected) exposure to COVID-19; J45.909 Unspecified asthma, uncomplicated; E11.9 Type 2 diabetes mellitus without complications; N80.9 Endometriosis, unspecified; G40.909 Epilepsy, unspecified, not intractable, without status epilepticus; K21.9 Gastro-esophageal reflux disease without esophagitis; I10 Essential (primary) hypertension; E03.9 Hypothyroidism, unspecified; F41.9 Anxiety disorder, unspecified
CPT/HCPCS: 87081; 87426; 87804; 87880; 99213; G0463

== ENCOUNTER 2023-10-19 16:12 | Emergency (ER) | payer OTHER, SELFPAY ==
[2023-10-19 16:45] VITALS: BP 125/57; PULSE 78; RESP 14; TEMP 36.6; O2SAT 98
== END 2023-10-19 17:37 | disposition home or self-care (01) ==
PROVIDERS: Emergency Provider Nurse Practitioner; PCP Family Medicine
DX: N39.0 Urinary tract infection, site not specified (principal); E78.5 Hyperlipidemia, unspecified; Z85.51 Personal history of malignant neoplasm of bladder
CPT/HCPCS: 81003; 87086; 99213; G0463

== ENCOUNTER 2023-11-06 10:47 | Emergency (ER) | payer OTHER, SELFPAY ==
[2023-11-06] VITALS (14 sets, daily range): BP systolic 103–160; BP diastolic 56–98; PULSE 68–93; RESP 14–24; TEMP 36.6–37.3; O2SAT 98–100
--- NOTE | 2023-11-06 10:49 | ECG_ITS ---
SEE SCANNED COPY FOR CONFIRMED REPORT MTDD
[2023-11-06 11:43] LABS: Basophils Absolute Auto 0.1 K/mm3 (0.0-0.1); Basophils Percent Auto 0.7 % (0.2-1.2); Eosinophils Absolute Auto 0.2 K/mm3 (0-0.3); Eosinophils Percent Auto 2.2 % (0-4.4); Hematocrit 43.9 % (37.0-47.0); Hemoglobin 14.5 g/dL (12.0-15.0); Immature Granulocyte Absolute 0.01 K/mm3 (0.00-0.031); Immature Granulocyte Percent A 0.1 % (0-0.5); Lymphocytes Absolute Auto 2.21 K/mm3 (0.9-3.2); Lymphocytes Percent Auto 26.9 % (18.3-44.2); Mean Corpuscular Hemoglobin 27.4 pg (26-34); Mean Corpuscular Volume 82.8 fl (80-100); Monocytes Absolute Auto 0.8 K/mm3 (0.1-0.6); Monocytes Percent Auto 9.5 % (2.6-8.5); Neutrophils Percent Auto 60.6 % (45.5-73.1); Platelet Count Result 329 k/mm3 (150-375); Red Cell Distribution Width 13.8 % (11.5-14.5); White Blood Count 8.2 K/mm3 (4.5-10.0)
--- NOTE | 2023-11-06 12:00 | PC.NURSE ---
Pt states Ozempic dose increased this morning, began with nausea & diarrhea. Went to work stood up experienced near syncope. Pt c/o h/a rates 10 with dizziness. Denies N/V/D at this time
--- NOTE | 2023-11-06 12:25 | ED.DIZZY ---
HPI - Dizziness General Chief Complaint: Syncope Stated Complaint: dizziness, nausea, vomitting Time Seen by Provider: 11/06/23 11:59 History of Present Illness HPI Narrative: Patient is a 43-year-old female with history of IBS, diabetes, migraines here after a near syncopal episode. She states that she typically takes her Ozempic in the evenings because that usually causes her to have some abdominal cramping. She had a busy day yesterday due to attending her 's 1st chemo appointment and was unable to take her Ozempic last night. This morning she took it prior to going into work. She started experiencing significant abdominal cramping as well as some diarrhea which is typical for her after taking Ozempic. She then began feeling lightheaded, room spinning and feeling as though she may pass out. She called out for help at work and they helped lower her to the ground. She denies any actual loss of consciousness. She currently is complaining of feeling generally ?off ?but her abdominal pain and dizziness/lightheadedness have resolved. She is having a mild headache at this time. She denies head injury. She denies numbness or weakness in arms or legs. No associated chest pain or shortness of breath. No history of PE or DVT. No recent travel, surgery, prolonged immobilization. She does note that she had a urinary tract infection and kidney stones that were treated about 2 weeks ago, she passed these kidney stones and has otherwise been feeling pretty good. Related Data Home Medications Medication Instructions Recorded Confirmed losartan 100 1 tablet PO DAILY 06/08/22 10/19/23 mg-hydrochlorothiazide 25 mg tablet semaglutide 0.25 mg or 0.5 mg (2 0.25 mg subcut DIRECTED 04/25/23 10/19/23 mg/3 mL) subcutaneous pen injector (Ozempic) atorvastatin 20 mg tablet 20 mg PO DAILY 10/19/23 10/19/23 dextroamphetamine-amphetamine ER 25 mg PO DAILY 10/19/23 10/19/23 25 mg 24hr capsule,extend release duloxetine 30 mg capsule,delayed 30 mg PO DAILY 10/19/23 10/19/23 release pantoprazole 40 mg tablet,delayed 40 mg PO DAILY 10/19/23 10/19/23 release topiramate 100 mg tablet 100 mg PO BID 10/19/23 10/19/23 Allergies Allergy/AdvReac Type Severity Reaction Status Date / Time Sulfa (Sulfonamide AdvReac Intermediate Nausea and Verified 10/19/23 16:26 Antibiotics) Vomiting Review of Systems Review of Systems: All systems reviewed & are unremarkable except as noted in HPI and below PMFSH Past Medical History Medical History (Updated 11/06/23 @ 15:24 by Melany Zimmerman MD) Acute viral syndrome Anemia Anxiety Asthma Bronchitis Diabetes Endometriosis GERD (gastroesophageal reflux disease) Hypertension Hypothyroidism Pericarditis Pneumonia Seizures Tonsillitis Tuberculosis Exposed to TB at age 4, took medication Surgical History Surgical History H/O: hysterectomy History of cholecystectomy Hx of tonsillectomy Family History Family History Mother Family history of malignant neoplasm of breast in first degree relative Father Family history of malignant neoplasm of esophagus Sibling Family history of malignant neoplasm of esophagus Social History Social History Alcohol intake: current Living arrangements: with family Gender identity (if verbalized by the patient): Female Sexual Orientation (if Verbalized by the Patient): Straight or Heterosexual Spiritual care concerns: No Exam Narrative: GENERAL: Well-appearing, well-nourished, and in no acute distress. HEAD: Normocephalic, atraumatic. EYES: PERRLA and EOMI. ENT: Nares clear. Mucous membranes moist. NECK: Supple. CHEST: Clear to auscultation. No respiratory distress. HEART: Regular rate and rhythm. Normal peripheral pulses. ABDOMEN: Soft, nontender,
[2023-11-06 12:47] LABS: Alanine Aminotransferase 18 U/L (6-35); Albumin Level 4.5 g/dL (3.5-5.1); Alkaline Phosphatase 68 U/L (38-126); Anion Gap 5 mmol/L (4-12); Aspartate Amino Transferase 23 U/L (14-36); Bilirubin,Total 0.6 mg/dL (0.2-1.3); Blood Urea Nitrogen 16 mg/dL (7-17); Calcium 9.5 mg/dL (8.4-10.2); Carbon Dioxide 26 mmol/L (22-30); Chloride 105 mmol/L (98-107); Estimated CRCL calculation 113 ml/min; Estimated Glomerular Filt Rate > 60; Glucose 107 mg/dL (65-110); Potassium 3.8 mmol/L (3.4-5.0); Sodium 136 mmol/L (137-145)
[2023-11-06 13:06] LABS: Appearance Urine Clear (Clear); Bilirubin Urine Negative (Negative); Blood Urine Negative (Negative); Color Urine Yellow (Yellow); Glucose Urine UA Negative (Negative); Ketones Urine Negative (Negative); Leukocyte Esterase Ur Negative LEU/UL (Negative); Nitrate Urine Negative (Negative); Protein Urine Negative (Negative); Specific Grav Ur 1.011 (1.001-1.035); Urobilinogen Urine 0.2 mg/dL (<2.0); pH Urine 6.5 (5.0-9.0)
--- NOTE | 2023-11-06 13:07 | PC.NURSE ---
Dr. Jauregui informed pt c/o h/a rates 8. Pt ambulated to bathroom with steady gait, denies any change in dizziness with ambulation
[2023-11-06] MEDS: ACETAMINOPHEN 325 MG TABLET 650 MG PO (13:13)
[2023-11-06] MEDS: SODIUM CHLORIDE 0.9% IV 1,000 ML 999 ML IV CONT (13:13)
[2023-11-06 13:14] LABS: Add Urine Microscopic? NO
[2023-11-06] MEDS: ONDANSETRON INJ 4 MG/2 ML VIAL (13:14)
--- NOTE | 2023-11-06 13:57 | PC.NURSE ---
Notified Ander in lab of additional orders.
[2023-11-06 14:11] LABS: Lipase 136 U/L (23-300)
[2023-11-06 14:23] LABS: Troponin I < 0.012 ng/mL (0.000-0.034)
[2023-11-06 14:32] LABS: INR 0.9; Partial Thromboplastin Time 29.8 Seconds (22.3-36.8); Prothrombin Time 12.8 Seconds (11.1-14.7)
--- NOTE | 2023-11-06 15:55 | PC.NURSE ---
RN notified by Rosy Blair [facility] green top hemolyzed.RN request phlebotomy be called to draw pt
--- NOTE | 2023-11-06 16:05 | ECG_ITS ---
SEE SCANNED COPY FOR CONFIRMED REPORT MTDD
[2023-11-06 16:48] LABS: Troponin I < 0.012 ng/mL (0.000-0.034)
== END 2023-11-06 17:30 | disposition home or self-care (01) ==
PROVIDERS: Student in an Organized Health Care Education/Training Program; Emergency Provider Student in an Organized Health Care Education/Training Program; PCP Family Medicine
DX: R55 Syncope and collapse (principal); I10 Essential (primary) hypertension; I31.9 Disease of pericardium, unspecified; E11.9 Type 2 diabetes mellitus without complications; J45.909 Unspecified asthma, uncomplicated; E03.9 Hypothyroidism, unspecified; K21.9 Gastro-esophageal reflux disease without esophagitis; K58.9 Irritable bowel syndrome, unspecified; Z86.2 Personal history of diseases of the blood and blood-forming organs and certain disorders involving the immune mechanism; Z87.01 Personal history of pneumonia (recurrent); Z90.49 Acquired absence of other specified parts of digestive tract; Z90.710 Acquired absence of both cervix and uterus; Z79.85 Long-term (current) use of injectable non-insulin antidiabetic drugs; R94.31 Abnormal electrocardiogram [ECG] [EKG]
CPT/HCPCS: 36415; 80053; 81003; 83690; 84484; 85025; 85610; 85730; 93005; 96361; 96374; 99284; A9270; J2405; J7030

== ENCOUNTER 2023-12-30 10:28 | Emergency (ER) | payer OTHER, SELFPAY ==
--- NOTE | ~2023-12-30 | CT_ITS ---
EXAMINATION: CT brain wo con DATE: 12/30/2023 11:13 INDICATION: Head injury. TECHNIQUE: Computed tomography (CT) of the head was performed without intravenous contrast. The mA wa s adjusted according to patient size. Iterative reconstruction technique was employed. The dose-lengt h product was 605.33 mGy-cm. COMPARISON: Head CT 09/20/2020 FINDINGS: There is no intracranial hemorrhage, acute infarction, or abnormal intracranial mass lesion . The ventricles are normal in size. The orbits are normal. There is mucosal thickening in the [place] m sinuses. The mastoid air cells are normal. IMPRESSION: 1. Normal brain. Reviewed, dictated and finalized at location E. IMPRESSION: 1. Normal brain.
[2023-12-30 10:33] VITALS: BP 129/70; PULSE 69; RESP 12; TEMP 36.4; O2SAT 100
--- NOTE | 2023-12-30 10:38 | ECG_ITS ---
Test Date: 2023-12-30 10:38:56 Measurements Intervals [place] Rate: 64 P: 0 WI: 153 QRS: 14 QRSD: 103 T: 113 QT: 412 QTc: 428 Interpretive Statements SINUS RHYTHM ST DEVIATION AND MODERATE T-WAVE ABNORMALITY, CONSIDER LATERAL ISCHEMIA [-0.1+ mV T WAVE IN I/aVL/V5/V6] No previous ECG available for comparison Electronically Signed On 12-30-2023 12:13:35 CDT by Annabel Tomas M.D.
--- NOTE | 2023-12-30 10:45 | ED.GENADULT ---
HPI - General Adult General Chief complaint: Dizziness Stated complaint: dizzy, head injury Time Seen by Provider: 12/30/23 10:32 History of Present Illness HPI narrative: 43-year-old female present to the emergency department for evaluation for vertigo and a ground level fall. Patient states that she had onset of vertigo this morning causing her to strike her head and abdomen on her dresser. Patient reports she does have a prior history of vertigo Related Data Home Medications Medication Instructions Recorded Confirmed losartan 100 1 tablet PO DAILY 06/08/22 10/19/23 mg-hydrochlorothiazide 25 mg tablet semaglutide 0.25 mg or 0.5 mg (2 0.25 mg subcut DIRECTED 04/25/23 10/19/23 mg/3 mL) subcutaneous pen injector ([employer]) atorvastatin 20 mg tablet 20 mg PO DAILY 10/19/23 10/19/23 dextroamphetamine-amphetamine ER 25 mg PO DAILY 10/19/23 10/19/23 25 mg 24hr capsule,extend release duloxetine 30 mg capsule,delayed 30 mg PO DAILY 10/19/23 10/19/23 release pantoprazole 40 mg tablet,delayed 40 mg PO DAILY 10/19/23 10/19/23 release topiramate 100 mg tablet 100 mg PO BID 10/19/23 10/19/23 Allergies Allergy/AdvReac Type Severity Reaction Status Date / Time Sulfa (Sulfonamide AdvReac Intermediate Nausea and Verified 10/19/23 16:26 Antibiotics) Vomiting Review of Systems Review of Systems: All systems reviewed & are unremarkable except as noted in HPI and below PMFSH Past Medical History Medical History (Updated 12/30/23 @ 12:26 by Julio Sullivan MD) Acute viral syndrome Anemia Anxiety Asthma Bronchitis Diabetes Endometriosis GERD (gastroesophageal reflux disease) Hypertension Hypothyroidism Pericarditis Pneumonia Seizures Tonsillitis Tuberculosis Exposed to TB at age 4, took medication Surgical History Surgical History H/O: hysterectomy History of cholecystectomy Hx of tonsillectomy Family History Family History Mother Family history of malignant neoplasm of breast in first degree relative Father Family history of malignant neoplasm of esophagus Sibling Family history of malignant neoplasm of esophagus Social History Social History Alcohol intake: current Living arrangements: with family Gender identity (if verbalized by the patient): Female Sexual Orientation (if Verbalized by the Patient): Straight or Heterosexual Spiritual care concerns: No Exam Narrative: APPEARANCE: Well appearing, no pain, no distress, well-nourished. HEAD: normocephalic, atraumatic. EYES: PERRLA/EOMI, conjunctivae clear. NOSE: Normal no drainage EARS:TMS clear with good light reflex. THROAT: Pharynx clear, no exudate. NECK: Supple. No adenopathy, no masses. RESPIRATORY: Airway patent, respirations nonlabored. Clear to auscultation bilaterally, no rales, rhonchi, wheezing. CARDIOVASCULAR: Regular rate and rhythm without murmurs rubs or gallops. ABDOMINAL: Soft, nontender, nondistended, normal bowel sounds MUSCULOSKELETAL: Moves all extremities. Strength/ROM intact, No edema, No calf tenderness. NEURO: Alert. Cranial nerves II through XII intact. Grossly intact SKIN: Abdominal wall ecchymosis Course Course Emergency Course: Patient felt improved with treatment. Patient was updated results of her workup. Vital Signs Vital signs: Vital Signs Temperature 97.6 F 12/30/23 10:33 Pulse Rate 69 12/30/23 10:33 Respiratory Rate 12 12/30/23 10:33 Blood Pressure 129/70 12/30/23 10:33 Pulse Oximetry 100 12/30/23 10:33 Oxygen Delivery Room Air 12/30/23 10:33 Temperature 97.6 F 12/30/23 10:33 Pulse Rate 62 12/30/23 12:33 Respiratory Rate 15 12/30/23 12:33 Blood Pressure 143/86 H 12/30/23 12:33 Pulse Oximetry 100 12/30/23 12:33 Oxygen Delivery Room Air 12/30/23 10
[2023-12-30 11:12] LABS: Basophils Absolute Auto 0.1 K/mm3 (0.0-0.1); Basophils Percent Auto 0.7 % (0.2-1.2); Eosinophils Absolute Auto 0.4 K/mm3 (0-0.3); Eosinophils Percent Auto 4.1 % (0-4.4); Hematocrit 41.9 % (37.0-47.0); Hemoglobin 13.8 g/dL (12.0-15.0); Immature Granulocyte Absolute 0.04 K/mm3 (0.00-0.031); Immature Granulocyte Percent A 0.5 % (0-0.5); Lymphocytes Percent Auto 27.6 % (18.3-44.2); Mean Corpuscular HGB Conc 32.9 g/dl (32-36); Mean Platelet Volume 9.5 fl (7.4-10.4); Monocytes Absolute Auto 0.7 K/mm3 (0.1-0.6); Monocytes Percent Auto 8.2 % (2.6-8.5); Neutrophils Absolute Auto 5.1 K/mm3 (1.3-6.7); Neutrophils Percent Auto 58.9 % (45.5-73.1); Platelet Count Result 298 k/mm3 (150-375); Red Blood Count 4.93 M/mm3 (4.2-5.4); Red Cell Distribution Width 13.5 % (11.5-14.5); White Blood Count 8.7 K/mm3 (4.5-10.0)
[2023-12-30 11:22] LABS: Alanine Aminotransferase 14 U/L (6-35); Alkaline Phosphatase 55 U/L (38-126); Anion Gap 7 mmol/L (4-12); Aspartate Amino Transferase 17 U/L (14-36); Bilirubin,Total 0.4 mg/dL (0.2-1.3); Blood Urea Nitrogen 22 mg/dL (7-17); Calcium 9.2 mg/dL (8.4-10.2); Carbon Dioxide 26 mmol/L (22-30); Chloride 107 mmol/L (98-107); Estimated CRCL calculation 116 ml/min; Estimated Glomerular Filt Rate > 60; Glucose 120 mg/dL (65-110); Potassium 3.9 mmol/L (3.4-5.0); Sodium 140 mmol/L (137-145)
[2023-12-30] MEDS: MECLIZINE HCL 25 MG TABLET PO (11:37)
[2023-12-30] MEDS: ONDANSETRON INJ 4 MG/2 ML VIAL IV PUSH (11:38)
[2023-12-30 12:33] VITALS: BP 143/86; PULSE 62; RESP 15; O2SAT 100
[2023-12-30] MEDS: diazePAM (*CRX) 2 MG TABLET PO (12:38)
== END 2023-12-30 12:46 | disposition home or self-care (01) ==
PROVIDERS: Emergency Provider Emergency Medicine
DX: S30.1XXA Contusion of abdominal wall, initial encounter (principal); H81.10 Benign paroxysmal vertigo, unspecified ear; I10 Essential (primary) hypertension; J45.909 Unspecified asthma, uncomplicated; E11.9 Type 2 diabetes mellitus without complications; E03.9 Hypothyroidism, unspecified; N80.9 Endometriosis, unspecified; K21.9 Gastro-esophageal reflux disease without esophagitis; Z86.2 Personal history of diseases of the blood and blood-forming organs and certain disorders involving the immune mechanism; Z87.01 Personal history of pneumonia (recurrent); Z90.710 Acquired absence of both cervix and uterus; Z90.49 Acquired absence of other specified parts of digestive tract; Z79.85 Long-term (current) use of injectable non-insulin antidiabetic drugs; Z79.899 Other long term (current) drug therapy; R94.31 Abnormal electrocardiogram [ECG] [EKG]; W01.190A Fall on same level from slipping, tripping and stumbling with subsequent striking against furniture, initial encounter
CPT/HCPCS: 36415; 70450; 80053; 85025; 93005; 96374; 99284; A9270; J2405

== ENCOUNTER 2024-04-25 13:05 | Emergency (ER) | payer OTHER, SELFPAY ==
[2024-04-25] VITALS (12 sets, daily range): BP systolic 157–180; BP diastolic 94–95; PULSE 69–97; RESP 13–20; TEMP 36.7; O2SAT 97–100
--- NOTE | ~2024-04-25 | CT_ITS ---
EXAMINATION: CT abdomen pelvis w con DATE: 04/25/2024 14:40 INDICATION: RLQ pain TECHNIQUE: Computed tomography (CT) of the abdomen and pelvis was performed with 100 mL Omnipaque-350 intravenous contrast. Automated exposure control and iterative reconstruction technique were employe d. The dose-length product was 1418.87 mGy-cm. COMPARISON: 12/01/2021. FINDINGS: Lower thorax: Unremarkable Liver: Normal. Biliary/Gallbladder: Gallbladder is absent. No bile duct dilation. Pancreas: No mass or duct dilation. Spleen: Normal. Adrenals:No mass. Kidneys: No suspicious mass, obstructing stone, or hydronephrosis. Punctate nonobstructive left lower pole calcification GI tract: No small or large bowel dilation. Normal appendix. Mesentery/Peritoneum: No ascites, mass, or free air. Retroperitoneum: No mass. Pelvis: Normal urinary bladder. Absent uterus. Bilateral ovaries not visualized. Soft Tissues: Soft tissues and body wall unremarkable. Bones: No acute osseous finding. IMPRESSION: No acute abdominal pelvic process detected. Reviewed, dictated and finalized at location K.
[2024-04-25 13:31] LABS: Basophils Percent Auto 0.3 % (0.2-1.2); Eosinophils Absolute Auto 0.3 K/mm3 (0-0.3); Hematocrit 43.9 % (37.0-47.0); Hemoglobin 14.6 g/dL (12.0-15.0); Immature Granulocyte Absolute 0.03 K/mm3 (0.00-0.031); Immature Granulocyte Percent A 0.3 % (0-0.5); Lymphocytes Percent Auto 19.2 % (18.3-44.2); Mean Corpuscular HGB Conc 33.3 g/dl (32-36); Mean Corpuscular Hemoglobin 27.9 pg (26-34); Mean Corpuscular Volume 83.9 fl (80-100); Mean Platelet Volume 9.4 fl (7.4-10.4); Neutrophils Absolute Auto 6.6 K/mm3 (1.3-6.7); Neutrophils Percent Auto 67.2 % (45.5-73.1); Platelet Count Result 299 k/mm3 (150-375); Red Blood Count 5.23 M/mm3 (4.2-5.4); Red Cell Distribution Width 13.6 % (11.5-14.5); White Blood Count 9.9 K/mm3 (4.5-10.0)
[2024-04-25 13:36] LABS: Add Urine Microscopic? NO; Appearance Urine Clear (Clear); Bilirubin Urine Negative (Negative); Blood Urine Negative (Negative); Color Urine Yellow (Yellow); Glucose Urine UA Negative (Negative); Ketones Urine Negative (Negative); Leukocyte Esterase Ur Negative LEU/UL (Negative); Nitrate Urine Negative (Negative); Protein Urine Negative (Negative); Specific Grav Ur 1.015 (1.001-1.035); Urobilinogen Urine 0.2 mg/dL (<2.0); pH Urine 5.5 (5.0-9.0)
[2024-04-25 13:59] LABS: Alanine Aminotransferase 17 U/L (6-35); Albumin Level 4.2 g/dL (3.5-5.1); Alkaline Phosphatase 67 U/L (38-126); Anion Gap 10 mmol/L (4-12); Aspartate Amino Transferase 28 U/L (14-36); Bilirubin,Total 0.6 mg/dL (0.2-1.3); Blood Urea Nitrogen 20 mg/dL (7-17); Calcium 8.8 mg/dL (8.4-10.2); Carbon Dioxide 23 mmol/L (22-30); Chloride 104 mmol/L (98-107); Estimated CRCL calculation 104 ml/min; Estimated Glomerular Filt Rate > 60; Glucose 147 mg/dL (65-110); Lipase 175 U/L (23-300); Potassium 4.1 mmol/L (3.4-5.0); Sodium 137 mmol/L (137-145)
--- NOTE | 2024-04-25 15:06 | ED.ABDPAIN ---
HPI - Abdominal Pain General Chief Complaint: Abdominal Pain Stated Complaint: abd pain Time Seen by Provider: 04/25/24 13:56 Source: patient and family Mode of arrival: ambulatory Limitations: no limitations History of Present Illness HPI narrative: Patient is a 43-year-old female who presents to the ER with complaints of right lower quadrant abdominal pain. She has an extensive medical history including a total hysterectomy, bladder cancer, diabetes, GERD, kidney stones, hypertension, hypothyroidism, cholecystectomy. Patient reports her abdominal pain started last night. Pain increases with movement. She reports she has had sulfur rec burping for the last week. She contacted her primary care doctor who increased her Prilosec to 2 times a day. She reports this has helped decrease the burping, but now she feels bloating. Patient reports she has had liquid bowel movements and vomiting since last night. She reports she has been on Ozempic for a year and has a history of dumping syndrome, but this does not seem like her typical dumping syndrome presentation. Patient denies chest pain, shortness a breath, or other signs of illness. Related Data Home Medications Medication Instructions Recorded Confirmed losartan 100 1 tablet PO DAILY 06/08/22 10/19/23 mg-hydrochlorothiazide 25 mg tablet semaglutide 0.25 mg or 0.5 mg (2 0.25 mg subcut DIRECTED 04/25/23 10/19/23 mg/3 mL) subcutaneous pen injector (Ozempic) atorvastatin 20 mg tablet 20 mg PO DAILY 10/19/23 10/19/23 dextroamphetamine-amphetamine ER 25 mg PO DAILY 10/19/23 10/19/23 25 mg 24hr capsule,extend release duloxetine 30 mg capsule,delayed 30 mg PO DAILY 10/19/23 10/19/23 release pantoprazole 40 mg tablet,delayed 40 mg PO DAILY 10/19/23 10/19/23 release topiramate 100 mg tablet 100 mg PO BID 10/19/23 10/19/23 Allergies Allergy/AdvReac Type Severity Reaction Status Date / Time Sulfa (Sulfonamide AdvReac Intermediate Nausea and Verified 04/25/24 13:12 Antibiotics) Vomiting Review of Systems Review of Systems: All systems reviewed & are unremarkable except as noted in HPI and below PMFSH Past Medical History Medical History Acute viral syndrome Anemia Anxiety Asthma Bronchitis Diabetes Endometriosis GERD (gastroesophageal reflux disease) Hypertension Hypothyroidism Pericarditis Pneumonia Seizures Tonsillitis Tuberculosis Exposed to TB at age 4, took medication Surgical History Surgical History H/O: hysterectomy History of cholecystectomy Hx of tonsillectomy Family History Family History Mother Family history of malignant neoplasm of breast in first degree relative Father Family history of malignant neoplasm of esophagus Sibling Family history of malignant neoplasm of esophagus Social History Social History Alcohol intake: current Living arrangements: with family Gender identity (if verbalized by the patient): Female Sexual Orientation (if Verbalized by the Patient): Straight or Heterosexual Spiritual care concerns: No Exam Narrative: GENERAL: Well appearing, obese, non-toxic, in mild distress d/t abdominal pain. HEAD: Normocephalic, atraumatic. NECK: Supple. No adenopathy, no masses. RESPIRATORY: Airway patent, respirations nonlabored. Clear to auscultation bilaterally, no rales, rhonchi, wheezing. CARDIOVASCULAR: Regular rate and rhythm without murmurs, rubs, or gallops. Peripheral pulses 2+ and equal bilaterally. ABDOMINAL: Soft, tender especially in RLQ with palpation, nondistended, no hepatosplenomegaly. Normoactive BS. Positive McBurney's sign, positive Psoas sign. MUSCULOSKELETAL: Moves all extremities. Strength/ROM intact without gross deformities. SKIN: Warm, dry,
[2024-04-25] MEDS: ONDANSETRON INJ 4 MG/2 ML VIAL IV PUSH (15:10)
[2024-04-25] MEDS: SODIUM CHLORIDE 0.9% IV 1,000 ML 999 ML IV CONT (15:10)
[2024-04-25] MEDS: MORPHINE SULFATE (*CRX) 4 MG/ML INJ IV PUSH (15:10)
[2024-04-25] MEDS: DICYCLOMINE HCL 10 MG CAPSULE PO (16:48)
== END 2024-04-25 17:31 | disposition home or self-care (01) ==
PROVIDERS: Emergency Medicine; Emergency Provider Registered Nurse
DX: B34.9 Viral infection, unspecified (principal); R10.31 Right lower quadrant pain; I10 Essential (primary) hypertension; E03.9 Hypothyroidism, unspecified; E11.9 Type 2 diabetes mellitus without complications; J45.909 Unspecified asthma, uncomplicated; K21.9 Gastro-esophageal reflux disease without esophagitis; F41.9 Anxiety disorder, unspecified; Z87.01 Personal history of pneumonia (recurrent); Z86.2 Personal history of diseases of the blood and blood-forming organs and certain disorders involving the immune mechanism; Z87.442 Personal history of urinary calculi; Z85.51 Personal history of malignant neoplasm of bladder; Z90.49 Acquired absence of other specified parts of digestive tract; Z90.710 Acquired absence of both cervix and uterus; Z79.85 Long-term (current) use of injectable non-insulin antidiabetic drugs; Z79.899 Other long term (current) drug therapy
CPT/HCPCS: 36415; 74177; 80053; 81003; 83690; 85025; 96361; 96374; 96375; 99284; A9270; J2270; J2405; J7030; Q9967

== ENCOUNTER 2025-03-01 10:13 | Emergency (ER) | payer OTHER, SELFPAY ==
[2025-03-01 10:20] VITALS: BP 104/63; PULSE 97; RESP 20; TEMP 36.4; O2SAT 99
--- NOTE | 2025-03-01 11:00 | ED.URI ---
HPI - URI/Sore Throat General Chief Complaint: Upper Respiratory Infection Stated Complaint: Sinus Time Seen by Provider: 03/01/25 11:00 Source: patient and RN notes reviewed Mode of arrival: ambulatory Limitations: no limitations History of Present Illness HPI Narrative: 44-year-old female presents with concern for a day history of left-sided sinus pressure, pain. She reports she is having left ear pain and drainage from her left eye. She reports she started getting a fever today. She reports she also has an area of open skin on her left buttock that is concerning. MD elicited complaint: sinus pain Related Data Home Medications ?Medication ?Instructions ?Recorded ?Confirmed ?Last Taken ?Type losartan 100 1 tablet PO DAILY 06/08/22 10/19/23 Unknown History mg-hydrochlorothiazide 25 mg tablet semaglutide 0.25 mg or 0.5 mg (2 0.25 mg subcut DIRECTED 04/25/23 10/19/23 Unknown History mg/3 mL) subcutaneous pen injector (Ozempic) atorvastatin 20 mg tablet 20 mg PO DAILY 10/19/23 10/19/23 Unknown History dextroamphetamine-amphetamine ER 25 mg PO DAILY 10/19/23 10/19/23 Unknown History 25 mg 24hr capsule,extend release duloxetine 30 mg capsule,delayed 30 mg PO DAILY 10/19/23 10/19/23 Unknown History release pantoprazole 40 mg tablet,delayed 40 mg PO DAILY 10/19/23 10/19/23 Unknown History release topiramate 100 mg tablet 100 mg PO BID 10/19/23 10/19/23 Unknown History carvedilol 6.25 mg tablet mg 03/01/25 Unknown History dextroamphetamine-amphetamine ER PO 03/01/25 Unknown History 30 mg 24hr capsule,extend release duloxetine 60 mg capsule,delayed mg PO 03/01/25 Unknown History release lorazepam 1 mg tablet mg 03/01/25 Unknown History Allergies Allergy/AdvReac Type Severity Reaction Status Date / Time Sulfa (Sulfonamide AdvReac Intermediate Nausea and Verified 03/01/25 10:35 Antibiotics) Vomiting Review of Systems Review of Systems: CONSTITUTIONAL: Denies malaise, chills, sweats, or fever. EYES: Denies visual changes. Reports left eye redness and discharge. ENT: Reports rhinorrhea, congestion, sinus pain, left otalgia CARDIOVASCULAR: Denies chest pain, palpitations, or edema. RESPIRATORY: Denies cough. Denies dyspnea. GASTROINTESTINAL: Denies abdominal pain, nausea, vomiting, diarrhea SKIN: Denies rash or itching. MUSCULOSKELETAL: Denies myalgia. NEUROLOGIC: Reports headache. All systems reviewed & are unremarkable except as noted in HPI and below PMFSH Past Medical History Medical History Acute viral syndrome Anemia Anxiety Asthma Bronchitis Diabetes Endometriosis GERD (gastroesophageal reflux disease) Hypertension Hypothyroidism Pericarditis Pneumonia Seizures Tonsillitis Tuberculosis Exposed to TB at age 4, took medication Surgical History Surgical History H/O: hysterectomy History of cholecystectomy Hx of tonsillectomy Family History Family History Mother Family history of malignant neoplasm of breast in first degree relative Father Family history of malignant neoplasm of esophagus Sibling Family history of malignant neoplasm of esophagus Social History Social History Alcohol intake: current Living arrangements: with family Gender identity (if verbalized by the patient): Female Sexual Orientation (if Verbalized by the Patient): Straight or Heterosexual Spiritual care concerns: No Comments At time of signature, agree with nursing past medical, surgical, social and family history. There is no relevant family history pertinent to the presenting complaint Exam Narrative: GENERAL: Well-appearing, well-nourished, and in no acute distress. HEAD: Normocephalic EYES: PERRLA, conjunctivae clear ENT: Nares clear, turbinates edematous and erythematous. Mucous membranes moist. TM pearly chavarria with dull light reflex bilaterally; no tragal tenderness. Oropharynx not erythematous without lesions. Tonsils not enlarged and without exudate, no drooling, no hoarseness, no trismus, uvula midline. NECK: Supple. No lymphadenopathy CHEST: Clear to auscultation, breath sounds equal. No wheezing, rhonchi, rales, or stridor. No respiratory distress, speaks in full sentences. HEART: Regular rate and rhythm. No murmur heard. SKIN: Warm, dry, no rash. NEURO: Alert and oriented x3. PSYCH: Normal mood and affect Course Course Emergency Course: Patient is aware of diagnosis, understands and agrees to treatment plan. Anticipatory guidance given. Patient agrees to follow-up as directed and is aware of reasons to seek care at the emergency department. Portions of this record may have been created with voice recognition software Level of Care: Express Care Visit Vital Signs Vital signs: Vital Signs Temperature 97.5 F L 03/01/25 10:20 Pulse Rate 97 03/01/25 10:20 Respiratory Rate 20 03/01/25 10:20 Blood Pressure 104/63 03/01/25 10:20 Pulse Oximetry 99 03/01/25 10:20 Oxygen Delivery Room Air 03/01/25 10:20 Temperature 97.5 F L 03/01/25 10:20 Pulse Rate 97 03/01/25 10:20 Respiratory Rate 20 03/01/25 10:20 Blood Pressure 104/63 03/01/25 10:20 Pulse Oximetry 99 03/01/25 10:20 Oxygen Delivery Room Air 03/01/25 10:20 Reviewed. MDM - URI/Sore Throat MDM Narrative Medical decision making narrative: Differential diagnosis considered: Mckinney virus, strep pharyngitis, allergic rhinitis, upper respiratory tract infection, sinusitis, rhinosinusitis, nasopharyngitis. viral pharyngitis, otitis media, otitis externa, pneumonia, bronchitis, viral cough syndrome, viral syndrome, and influenza. Exam findings show no acute concerns or changes; patient is non-toxic appearing and is in no distress. Patient is appropriate for outpatient treatment and follow-up. Lab Data Attestation: I reviewed the patient's lab results. Critical Care Time Critical Care Time Critical Care Time: No Discharge Plan Discharge Clinical Impression: Sinusitis Patient Disposition: Home Condition: Stable Instructions: Antibiotic Form, Sinusitis (ED) Additional Instructions: Take medication as directed Nonprescription pain medications, such as acetaminophen (eg, Tylenol) or ibuprofen (eg, Motrin, Advil), are recommended for pain. Flushing the nose and sinuses with a saline solution several times per day has been proven to decrease pain associated with congestion and shorten the duration of symptoms. Nasal steroids (such as Flonase, 2 sprays in each nostril daily) can help to reduce swelling inside the nose, usually within two to three days. These drugs have few side effects and relieve symptoms in most people. Nasal decongestant sprays, including oxymetazoline (Afrin) and phenylephrine (Galindo-Synephrine), can be used to temporarily treat congestion. However, these sprays should not be used for more than two to three days due to the risk of rebound congestion (when the nose becomes congested constantly unless the medication is used repeatedly), possible addiction, and long-term consequences of frequent use, including persistent nasal dryness and crusting, which is very difficult to treat once it has developed. Medications to thin secretions (such as guaifenesin) may help to clear mucus. Please follow-up with your primary care doctor in the next 1-2 days. If you cannot follow-up with your primary care doctor please go to the ED for any urgent issues. If you have any worsening of symptoms or any other concerns please go to the ED immediately. Patient Language: Montenegrin Prescriptions: New methylprednisolone [Medrol (Ricki)] 4 mg tablets,dose pack See Rx Instructions .ROUTE .COMPLEX Qty: 21 0RF Rx Instructions: orally per package directions amoxicillin-pot clavulanate 875-125 mg tablet 1 tablet PO Q12H 10 Days Qty: 20 0RF No Action losartan-hydrochlorothiazide 100-25 mg tablet 1 tablet PO DAILY Ozempic 0.25 mg or 0.5 mg (2 mg/3 mL) pen injector 0.25 mg SUBCUT DIRECTED atorvastatin 20 mg tablet 20 mg PO DAILY pantoprazole 40 mg tablet,delayed release (DR/EC) 40 mg PO DAILY topiramate 100 mg tablet 100 mg PO BID dextroamphetamine-amphetamine 25 mg capsule,extended release 24hr 25 mg PO DAILY duloxetine 30 mg capsule,delayed release(DR/EC) 30 mg PO DAILY carvedilol 6.25 mg tablet lorazepam 1 mg tablet dextroamphetamine-amphetamine 30 mg capsule,extended release 24hr PO duloxetine 60 mg capsule,delayed release(DR/EC) PO meclizine 25 mg tablet 25 mg PO BID PRN (Reason: dizziness) Qty: 20 0RF ondansetron 4 mg tablet,disintegrating 4 mg PO Q8H PRN (Reason: nausea and vomiting) Qty: 20 0RF diazepam [Valium] 2 mg tablet 2 mg PO BID PRN (Reason: vertigo) Qty: 10 0RF hydrocodone-acetaminophen 5-325 mg tablet 1 tablet PO Q6H PRN (Reason: pain (scale score 4-6)) Qty: 2 0RF dicyclomine 10 mg capsule 10 mg PO TID Qty: 14 0RF Follow-up/Referrals: PHYSICIAN,ADMINISTRATION INTERN [Primary Care Provider, Internal Medicine] Stand Alone Forms: Work/School Release IP Time of Disposition: 11:12
== END 2025-03-01 11:21 | disposition home or self-care (01) ==
PROVIDERS: Emergency Provider Nurse Practitioner
DX: J32.9 Chronic sinusitis, unspecified (principal); J45.909 Unspecified asthma, uncomplicated; E11.9 Type 2 diabetes mellitus without complications; Z79.85 Long-term (current) use of injectable non-insulin antidiabetic drugs; G40.909 Epilepsy, unspecified, not intractable, without status epilepticus; N80.9 Endometriosis, unspecified; I10 Essential (primary) hypertension; E03.9 Hypothyroidism, unspecified; F41.9 Anxiety disorder, unspecified
CPT/HCPCS: 99213; G0463

== ENCOUNTER 2025-05-12 10:39 | Emergency (ER) | payer OTHER, SELFPAY ==
--- OUTSIDE RECORDS SUMMARY | 2002-02-06 03:30 | XMS_ITS | Continuity of Care Document ---
Author Organization [facility] Address [address] [place] [address] Phone Care Team Providers Care Shot Peen Operator Name Role Phone Lowe OD, Ander Unavailable Unavailable Advance Directives Directive Yes / No Effective Date File Name No Information Encounters Encounter Description Practice Location Reason(s) For Visit Diagnoses Date Provider Providers Copied on Encounter [facility], [address], [place], [place], [id number], [place] tel:[phone] [facility] No Information 7-200 2 Lowe OD Ander. [address] , [address], [place], [address], [place]. tel:[phone] Family History Family Member Type Diagnosis Age At Onset No Information Payers Payer name Insurance type Covered constitution party ID Authoriza tion(s) No Information Social History Type Description Quantity Date Captured Comments Sex Female Smoking Status No Information Chief Complaint And Reason For Visit No Information Reason For Referral Reason For Referral No Information History Of Present Illness Encounter Date Complaint History Of Prese nt Illness No Information Functional Status Date Functional Assessmen t No Information Instructions Date Instruction Additional Infor mation No Information Assessments Type Assessment Date No Information Patient Care Teams Name Effective Dates (start - stop) Status Members No Information
--- NOTE | ~2025-05-12 | CT_ITS ---
EXAMINATION: CT abdomen pelvis w con DATE: 05/12/2025 13:04 INDICATION: Left upper quadrant abdominal pain TECHNIQUE: Computed tomography (CT) of the abdomen and pelvis was performed with 100 mL Omnipaque-350 intravenous contrast. Automated exposure control and iterative reconstruction technique were employed. The dose-length product was 1492.31 mGy-cm. COMPARISON: 04/25/2024 FINDINGS: Small calcified nodule in the right lower lobe consistent with old granulomatous disease. Heart size is normal. No pericardial or pleural effusion. Cholecystectomy clips the gallbladder fossa. Mild diffuse hepatic steatosis. There are 5 small splenules situated between the normal spleen and pancreas wh ich have been present since CT dated 08/25/2011. Bilateral adrenal glands and kidneys are normal. Small amount of fluid throughout the colon consistent with diarrhea. No abnormal bowel wall thickening or obstruction. Normal appendix. Bladder is normal. The uterus bilateral ovaries are not identified and have likely been surgically resected. No free intraperitoneal gas or fluid. No pathologically enlarged abdominal or pelvic lymphadenopathy. Mild lumbar and mild to moderate lower thoracic spondylosis. Moderate bilateral sacroiliac osteoarthritis. IMPRESSION: 1. Fluid in the colon consistent with nonspecific diarrhea. No other acute intra-abdominal/pelvic process. Reviewed, dictated and finalized at location A. IMPRESSION: 1. Fluid in the colon consistent with nonspecific diarrhea. No other acute intr a-abdominal/pelvic process.
[2025-05-12 10:49] VITALS: BP 150/101; PULSE 91; RESP 18; TEMP 36.4; O2SAT 99
[2025-05-12 11:41] LABS: Hematocrit 45.6 % (37.0-47.0); Hemoglobin 14.6 g/dL (12.0-15.0); Immature Granulocyte Percent A 0.4 % (0-0.5); Lymphocytes Absolute Auto 1.81 K/mm3 (0.9-3.2); Mean Corpuscular HGB Conc 32.0 g/dl (32-36); Mean Corpuscular Hemoglobin 26.1 pg (26-34); Mean Corpuscular Volume 81.4 fl (80-100); Nucleated Red Blood Cells Absolute Auto 0.000 K/mm3 (0.0-0.012); Nucleated Red Blood Cells Perc 0.0 % (0.0-0.2); Platelet Count Result 417 k/mm3 (150-375); Red Blood Count 5.60 M/mm3 (4.2-5.4); White Blood Count 13.1 K/mm3 (4.5-10.0)
--- OUTSIDE RECORDS SUMMARY | 2025-05-12 11:41 | XMS_ITS | Encounter Summary ---
Author Organization [facility] Address [address] [place] [address] Care Team Providers Care Pump Tender Name Role Phone Kay Washington ACCORDION MAKER-CASING BUILDER Primary Care Provider + Kay Washington ACCORDION MAKER-CASING BUILDER Primary Care Provider + Sera Zaman DO Primary Care Provider [phone] Kay Washington ACCORDION MAKER-CASING BUILDER Primary Care Provider + Sera Zaman DO Primary Care Provider Kay Washington ACCORDION MAKER-CASING BUILDER Primary Care Provider + Yuliana Coffey ACCORDION MAKER-CASING BUILDER Primary Care Provider + Kay Washington ACCORDION MAKER-CASING BUILDER Primary Care Provider + Cherrie Prince MD Primary Care Provider [phone]- [phone] Cherrie Prince MD Primary Care Provider [phone]- [phone] Cherrie Prince MD Unavailable [phone] Roni Hernandez MD Primary Care Provider [phone] Reason for Visit * Reason Onset Date Comments MEDICATION REFILL 12/29/2018 refill request Encounter Details Date Type Department Care Team (Late st Contact Info) Description 12/29/2018 Refill [facility] [address] [place] [address] Kay Washington, ACCORDION MAKER-CASING BUILDER [address] [place] [address] MEDICATION REFILL (refill request ) Social History Tobacco Use Types Packs/Day Years Used Date Smoking Tobacco: Never Smokeless Tobacco: Never Alcohol Use Standard Drinks/Week Comments Yes 0 (1 standard drink = 0.6 oz pur e alcohol) Comments Unknown Sex and Gender Information Value Date Recorded Sex Assigned at Not on file Legal Sex Female 7:49 AM BUFFING WHEEL RAKER Gender Identity Not on file Sexual Orientation Not on file Occupation Industry Job Start Date Job End Date PMO at [employer] Not on file Not on file Not on file documented as of this encounter Miscellaneous Notes * Telephone Encounter - Grecia Pascal - 12/29/2018 10:39 AM CDT Patient requesting refills for the following (Adderall 30 mg ) medications. ESCOBAR: 12-17-18 NOV: 02-16-19 @ 11: 10 am Problem List Identified: office visit on 12-17-18 establishing care Medication attached per refill protocol/guidlines for further review by provider yes PCP / Resident PCP verified yes Allergies Reviewed yes Pharmacy Reviewed yes Medication details entered yes Office visit within the last six months yes if not within last 6 months route to GIM-scheduling as well. Office visit greater than 12 months no routed to GIM scheduling ONLY no. documented in this encounter Plan of Treatment Not on file documented as of this encounter Visit Diagnoses Not on filedocumented in this encounter Additional Health Concerns Infection Onset Date Last Indicated Resolved Time COVID-19 Under Investigation 10/12/2019 10/12/2019 10/13/2019 12:17 AM CDT COVID-19 Under Investigation 06/02/2020 06/02/2020 06/03/2020 4:33 PM BUFFING WHEEL RAKER COVID-19 Confirmed 06/02/2020 06/02/2020 0 4:34 AM BUFFING WHEEL RAKER COVID-19 Under Investigation 08/14/2020 08/14/2020 08/14/2020 4:37 PM BUFFING WHEEL RAKER COVID-19 Under Investigation 03/09/2021 03/09/2021 03/09/2021 6:30 PM CDT documented as of this encounter Care Teams Pump Tender Relationship Specialty Start Date End Date Kay Washington ACCORDION MAKER-CASING BUILDER PCP - General Nurse Practitioner Family 12/17/1812/12 Kay Washington ACCORDION MAKER-CASING BUILDER PCP - General Nurse Practitioner Family 02/22/1903/15 Sera Zaman DO PCP - General 04/14/19 04/14/19 Kay Washington ACCORDION MAKER-CASING BUILDER PCP - General Nurse Practitioner Family 04/15/1904/18/19 Sera Zaman DO PCP - General 04/19/19 05/12/19 Kay Washington ACCORDION MAKER-CASING BUILDER PCP - General 05/13/19 05/26/19 Yuliana Coffey, ACCORDION MAKER-CASING BUILDER [address] [place] [address] PCP - General 05/27/19 05/30/19 Kay Washington ACCORDION MAKER-CASING BUILDER PCP - General 05/31/19 07/19/19 Cherrie Prince MD [address] [place] [address] PCP - General 07/20/19 05/24/20 Cherrie Prince MD [address] [place] [address] PCP - General 05/25/20 04/04/21 Roni Hernandez MD [address] [place] [address] PCP - General 04/05/21 Cherrie Prince MD [address] [place] [address] Resident - PCP 05/25/20 documented as of this encounter
--- OUTSIDE RECORDS SUMMARY | 2025-05-12 11:41 | XMS_ITS | Clinical Summary ---
Author Organization [facility] Address [address] [place] [address] Care Team Providers Care Blueprint Reproducer Name Role Phone Unavailable Primary Care Provider Unavailabl e Social History Tobacco Use Types Packs/Day Years Used Date Smoking Tobacco: Never Assessed Comments Unknown Sex and Gender Information Value Date Recorded Sex Assigned at Not on file Legal Sex Female 7:04 AM CDT Gender Identity Not on file Sexual Orientation Not on file Plan of Treatment Upcoming Encounters Date Type Department Care Team (Late st Contact Info) Description 07/21/2025 8:10 AM GOVERNMENT RELATIONS MANAGER Office Visit [facility] Family Medicine [facility] [address] [place] [address] Antonia Lantigua MD [address] [place] [address] Health Maintenance Due Date Last Done Comments Cervical Cancer Screening Pa p Smear (Age 30 to 64) Every 3 Years 1978 Colorectal Cancer Screening Colonoscopy (10 Years) 1978 Annual Physical 1981 Hepatitis C 1996 DTaP, Tdap and Td Vaccines ( 1 - Tdap) 1997 Hepatitis B Vaccines (1 of 3 - 19+ 3-dose series) 1997 Cervical Cancer Screening Pa p with HPV Testing (Age 30 to 64) Every 5 Years 2008 Cervical Cancer Screening with HPV 2008 Mammogram Screening 2018 COVID-19 Vaccine (2024-2 6 season) 2025 Influenza Adult (#1) 2025 Hepatitis A Vaccines Aged Out No long er eligible based on patient's age to complete this topic Meningococcal B Vaccine Aged Out No l onger eligible based on patient's age to complete this topic Meningococcal Vaccine Aged Out No gianfranco john eligible based on patient's age to complete this topic Pneumococcal Vaccine: Pediat rics (0 to 5 Years) and At-Risk Patients (6 to 49 Years) Aged Out No longer eligible b ased on patient's age to complete this topic RSV Immunizations Under 20 Months Aged Out No longer eligible based on patient's age to complete [place] [address] [facility]
--- OUTSIDE RECORDS SUMMARY | 2025-05-12 11:41 | XMS_ITS | Encounter Summary ---
Author Organization [facility] Address [address] [place] [address] Care Team Providers Care Translator/Interpreter Name Role Phone Kay Washington SPORTS DIRECTOR-SEMI CONDUCTOR ASSEMBLER Primary Care Provider + Sera Zaman DO Primary Care Provider [phone] Kay Washington SPORTS DIRECTOR-SEMI CONDUCTOR ASSEMBLER Primary Care Provider + Sera Zaman DO Primary Care Provider [phone] Kay Washington SPORTS DIRECTOR-SEMI CONDUCTOR ASSEMBLER Primary Care Provider + Yuliana Coffey SPORTS DIRECTOR-SEMI CONDUCTOR ASSEMBLER Primary Care Provider + Kay Washington SPORTS DIRECTOR-SEMI CONDUCTOR ASSEMBLER Primary Care Provider + Cherrie Prince MD Primary Care Provider [phone] Cherrie Prince MD Primary Care Provider [phone] Cherrie Prince MD Unavailable Roni Hernandez MD Primary Care Provider [phone] Reason for Visit * Reason Onset Date Comments Future Appointment 02/05/2019 Encounter Details Date Type Department Care Team (Late st Contact Info) Description 02/05/2019 Telephone [facility] [address] [place] [address] Jumana Alvarez MD [address] [place] [id number] Future Appointment Social History Tobacco Use Types Packs/Day Years Used Date Smoking Tobacco: Never Smokeless Tobacco: Never Alcohol Use Standard Drinks/Week Comments Yes 0 (1 standard drink = 0.6 oz pur e alcohol) Comments Unknown Sex and Gender Information Value Date Recorded Sex Assigned at Not on file Legal Sex Female 7:49 AM HOSPITAL DIRECTOR Gender Identity Not on file Sexual Orientation Not on file Occupation Industry Job Start Date Job End Date PMO at [employer] Not on file Not on file Not on file documented as of this encounter Miscellaneous Notes * Telephone Encounter - Juliane Lugo - 02/05/2019 10:06 AM CDT Attempted to reach pt to encourage her to please return call regarding getting an appt scheduled, went straight to [facility] with contact info documented in this encounter Plan of Treatment Not on file documented as of this encounter Visit Diagnoses Not on filedocumented in this encounter Additional Health Concerns Infection Onset Date Last Indicated Resolved Time COVID-19 Under Investigation 10/12/2019 10/12/2019 10/13/2019 12:17 AM CDT COVID-19 Under Investigation 06/02/2020 06/02/2020 06/03/2020 4:33 PM HOSPITAL DIRECTOR COVID-19 Confirmed 06/02/2020 06/02/2020 0 4:34 AM HOSPITAL DIRECTOR COVID-19 Under Investigation 08/14/2020 08/14/2020 08/14/2020 4:37 PM HOSPITAL DIRECTOR COVID-19 Under Investigation 03/09/2021 03/09/2021 03/09/2021 6:30 PM CDT documented as of this encounter Care Teams Translator/Interpreter Relationship Specialty Start Date End Date Kay Washington APRN-SEMI CONDUCTOR ASSEMBLER PCP - General Nurse Practitioner Family 02/22/1903/15 Sera Zaman DO PCP - General 04/14/19 04/14/19 Kay Washington, SPORTS DIRECTOR-SEMI CONDUCTOR ASSEMBLER PCP - General Nurse Practitioner [facility] 04/15/1904/18/19 Sera Zaman, DO PCP - General 04/19/19 05/12/19 Kay Washington, SPORTS DIRECTOR-SEMI CONDUCTOR ASSEMBLER PCP - General 05/13/19 05/26/19 Yuliana Coffey, SPORTS DIRECTOR-SEMI CONDUCTOR ASSEMBLER [address] [place] [address] PCP - General 05/27/19 05/30/19 Kay Washington, SPORTS DIRECTOR-SEMI CONDUCTOR ASSEMBLER PCP - General 05/31/19 07/19/19 [place] [address] [place] [address] PCP - General 07/20/19 05/24/20 Cherrie Prince MD [address] [place] [address] PCP - General 05/25/20 04/04/21 Roni Hernandez MD [address] [place] [address] PCP - General 04/05/21 Cherrie Prince MD [address] [place] [address] Resident - PCP 05/25/20 documented as of this encounter
[2025-05-12 11:42] LABS: BEDSIDEPREGUCG Negative (Negative)
--- OUTSIDE RECORDS SUMMARY | 2025-05-12 11:42 | XMS_ITS | Encounter Summary ---
Author Organization [facility] Address [address] [facility] [place] [address] Care Team Providers Care Travel Ot Name Role Phone Yuliana Coffey Primary Care Provider + Kay Washington APRNSHAINA Primary Care Provider + Cherrie Prince MD Primary Care Provider [phone] Cherrie Prince MD Primary Care Provider [phone] Cherrie Prince MD Unavailable [phone] Roni Hernandez MD Primary Care Provider [phone] Reason for Visit * Reason Onset Date Comments Forms/questionnaires 05/28/2019 Forms/questionnaires 05/31/2019 message rel ayed Encounter Details Date Type Department Care Team (Late st Contact Info) Description 05/28/2019 Telephone [facility] [address] [facility] [address] [place] [address] Yuliana Coffey APRN-CNP [address] [facility] [place] [address] Forms/questionnaires; Forms/questionnaires (message relayed) Social History Tobacco Use Types Packs/Day Years Used Date Smoking Tobacco: Never Smokeless Tobacco: Never Alcohol Use Standard Drinks/Week Comments Yes 0 (1 standard drink = 0.6 oz pur e alcohol) Comments No Sex and Gender Information Value Date Recorded Sex Assigned at Not on file Legal Sex Female 7:49 AM HALL PORTER Gender Identity Not on file Sexual Orientation Not on file Occupation Industry Job Start Date Job End Date PMO at [employer] Not on file Not on file Not on file documented as of this encounter Miscellaneous Notes * Telephone Encounter - SunNelson way - 05/31/2019 3:17 PM CST Pt called to follow-up on request to have forms completed. Upon chart review, message below provided: Message from SHAINA Heaton NP Padmini is patient's PCP. Unsure why I am listed as PCP. I have only seen patient for AC visits. ?? Needs paperwork from PCP. ?? As EGG PROCESSOR Padmini will be leaving, given patient's multiple, complex, medical issues, would recommend she establish in the resident clinic so she can see resident MD and attending MD. ?? Please notify on papework and assist in scheduling in the resident clinic. ?? KEVIN Estrada Pt verbalized understanding and was warm transferred to [facility] scheduling for assistance PORTER * Telephone Encounter - Yuliana Heaton APRN-CNP - 05/28/2019 3:46 PM HALL PORTER EGG PROCESSOR Padmini is patient's PCP. Unsure why I am listed as PCP. I have only seen patient for AC visits. Needs paperwork from PCP. As SUNITA Washington will be leaving, given patient's multiple, complex, medical issues, would recommend she establish in the resident clinic so she can see resident MD and attending MD. Please notify on papework and assist in scheduling in the resident clinic. KEVIN Estrada PORTER * Telephone Encounter - Nelson Sun - 05/28/2019 3:39 PM CST Pt called and stated that her provider completed a medical inquiry release from for her to returnto work, but she needs the date on the form to be changed from 05/24/19 to 05/31/19 so she can go to work on Friday. Caller stated that the form should be in her chart and attached to [employer] messages. Caller is requesting to be notified at [phone] once the form has been updated and faxed to her provider Message routed to provider for review and assistance PORTER documented in this encounter Plan of Treatment Not on file documented as of this encounter Visit Diagnoses Not on filedocumented in this encounter Additional Health Concerns Infection Onset Date Last Indicated Resolved Time COVID-19 Under Investigation 10/12/2019 10/12/2019 10/13/2019 12:17 AM CDT COVID-19 Under Investigation 06/02/2020 06/02/2020 06/03/2020 4:33 PM HALL PORTER COVID-19 Confirmed 06/02/2020 06/02/2020 4:34 AM HALL PORTER COVID-19 Under Investigation 08/14/2020 08/14/2020 08/14/2020 4:37 PM HALL PORTER COVID-19 Under Investigation 03/09/2021 03/09/2021 03/09/2021 6:30 PM CDT documented as of this encounter Care Teams Travel Ot Relationship Specialty Start Date End Date Yuliana Coffey, ARCHITECTURAL DRAFTSMAN-SHIPFITTERS SUPERVISOR [address] [place] [address] PCP - General 05/27/19 05/30/19 Kay Washington, ARCHITECTURAL DRAFTSMAN-SHIPFITTERS SUPERVISOR [address] [place] [address] PCP - General 05/31/19 07/19/19 Cherrie Prince MD [address] [place] [address] PCP - General 07/20/19 05/24/20 Cherrie Prince MD [address] [place] [address] PCP - General 05/25/20 04/04/21 Roni Hernandez MD [address] [place] [place] [address] PCP - General 04/05/21 Cherrie Prince MD [address] [place] [address] Resident - PCP 05/25/20 documented as of this encounter
--- OUTSIDE RECORDS SUMMARY | 2025-05-12 11:42 | XMS_ITS | Encounter Summary ---
Author Organization [facility] Health Address [address] [place] [address] Care Team Providers Care American Sign Language Interpreter Name Role Phone Kay Washington APRN-PLATEN GRINDER Primary Care Provider + Cherrie Prince MD Primary Care Provider [phone] Cherrie Prince MD Primary Care Provider [phone] Cherrie Prince MD Unavailable [phone] Roni Hernandez MD Primary Care Provider [phone] Reason for Visit * Reason Onset Date Comments Results 06/15/2019 1st attempt vm Encounter Details Date Type Department Care Team (Late st Contact Info) Description 06/15/2019 Telephone [facility] [address] [address] Kay Washington, RAMONE-PLATEN GRINDER [address] [place] [address] Results (1st attempt vm) Social History Tobacco Use Types Packs/Day Years Used Date Smoking Tobacco: Never Smokeless Tobacco: Never Alcohol Use Standard Drinks/Week Comments Yes 0 (1 standard drink = 0.6 oz pur e alcohol) Comments No Sex and Gender Information Value Date Recorded Sex Assigned at Not on file Legal Sex Female 7:49 AM GAMEPLAY ENGINEER Gender Identity Not on file Sexual Orientation Not on file Occupation Industry Job Start Date Job 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 She currently takes 1000 mg in the morning. I know she has been out of work and gaining weight since last check so I don't want to increase too much as she will likely get back to baseline once returning to work; however, baseline was still elevated at 6.3. Please have her start taking another 500 mg tablet of metformin in the evening with her dinner. The rx was sent. Thank you. VM left with call back number [phone] PLAY ENGINEER * Telephone Encounter - Freida Nguyen RN - 06/15/2019 12:44 PM CST ----- Message from KEVIN Andres sent at 06/03/2019 9:50 AM GAMEPLAY ENGINEER ----- Please call and let patient know I would like to increase her metformin slightly. She currently takes 1000 mg in the morning. I know she has been out of work and gaining weight since last check so I don't want to increase too much as she will likely get back to baseline once returning to work; however, baseline was still elevated at 6.3. Please have her start taking another 500 mg tablet of metformin in the evening with her dinner. The rx was sent. Thank you. PLAY ENGINEER documented in this encounter Plan of Treatment Not on file documented as of this encounter Visit Diagnoses Not on filedocumented in this encounter Additional Health Concerns Infection Onset Date Last Indicated Resolved Time COVID-19 Under Investigation 10/12/2019 10/12/2019 10/13/2019 12:17 AM CDT COVID-19 Under Investigation 06/02/2020 06/02/2020 06/03/2020 4:33 PM GAMEPLAY ENGINEER COVID-19 Confirmed 06/02/2020 06/02/2020 4:34 AM GAMEPLAY ENGINEER COVID-19 Under Investigation 08/14/2020 08/14/2020 08/14/2020 4:37 PM GAMEPLAY ENGINEER COVID-19 Under Investigation 03/09/2021 03/09/2021 03/09/2021 6:30 PM CDT documented as of this encounter Care Teams American Sign Language Interpreter Relationship Specialty Start Date End Date Kay Washington, GAUGE AND WEIGH MACHINE ADJUSTER-PLATEN GRINDER PCP - General 05/31/19 07/19/19 Cherrie Prince MD [address] [place] [address] PCP - General 07/20/19 05/24/20 Cherrie Prince MD [address] [place] [address] PCP - General 05/25/20 04/04/21 Roni Hernandez MD [address] [place] [address] PCP - General 04/05/21 Cherrie Prince MD [address] [place] [address] Resident - PCP 05/25/20 documented as of this encounter
--- OUTSIDE RECORDS SUMMARY | 2025-05-12 11:42 | XMS_ITS | Encounter Summary ---
Author Organization [facility] Health Address [address] [place] [address] Care Team Providers Care Crossword Puzzle Maker Name Role Phone Kay Washington APRN-ECONOMIC DEVELOPMENT SPECIALIST Primary Care Provider + Cherrie Prince MD Primary Care Provider [phone] Cherrie Prince MD Primary Care Provider [phone] Cherrie Prince MD Unavailable [phone] Roni Hernandez MD Primary Care Provider [phone] Reason for Visit * Reason Onset Date Comments Results 06/15/2019 1st attempt Encounter Details Date Type Department Care Team (Late st Contact Info) Description 06/15/2019 Telephone [facility] [address] [address] Kay Washington, RAMONE-ECONOMIC DEVELOPMENT SPECIALIST [address] [place] [address] Results (1st attempt) Social History Tobacco Use Types Packs/Day Years Used Date Smoking Tobacco: Never Smokeless Tobacco: Never Alcohol Use Standard Drinks/Week Comments Yes 0 (1 standard drink = 0.6 oz pur e alcohol) Comments No Sex and Gender Information Value Date Recorded Sex Assigned at Not on file Legal Sex Female 7:49 AM RADIOLOGIC TECHNOLOGIST Gender Identity Not on file Sexual Orientation Not on file Occupation Industry Job Start Date Job 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 VM message left requesting call back to [facility] office, hours and phone number provided: ----- Message from KEVIN Andres sent at 06/03/2019 9:50 AM RADIOLOGIC TECHNOLOGIST ----- Please call and let patient know [...] dinner. The rx was sent. Thank you. Will re-attempt at a later time OLOGIC TECHNOLOGIST OLOGIC TECHNOLOGIST documented in this encounter Plan of Treatment Not on file documented as of this encounter Visit Diagnoses Not on filedocumented in this encounter Additional Health Concerns Infection Onset Date Last Indicated Resolved Time COVID-19 Under Investigation 10/12/2019 10/12/2019 10/13/2019 12:17 AM CDT COVID-19 Under Investigation 06/02/2020 06/02/2020 06/03/2020 4:33 PM RADIOLOGIC TECHNOLOGIST COVID-19 Confirmed 06/02/2020 06/02/2020 0 4:34 AM RADIOLOGIC TECHNOLOGIST COVID-19 Under Investigation 08/14/2020 08/14/2020 08/14/2020 4:37 PM RADIOLOGIC TECHNOLOGIST COVID-19 Under Investigation 03/09/2021 03/09/2021 03/09/2021 6:30 PM CDT documented as of this encounter Care Teams Crossword Puzzle Maker Relationship Specialty Start Date End Date Kay Washington APRN-CNP PCP - General 05/31/19 07/19/19 Cherrie Prince MD [address] [place] [address] PCP - General 07/20/19 05/24/20 Cherrie Prince MD [address] [place] [address] PCP - General 05/25/20 04/04/21 Roni Hernandez MD [address] [place] [address] PCP - General 04/05/21 Cherrie Prince MD [address] [place] [address] Resident - PCP 05/25/20 documented as of this encounter
--- OUTSIDE RECORDS SUMMARY | 2025-05-12 11:42 | XMS_ITS | Encounter Summary ---
Author Organization [facility] Health Address [address] [facility] [place] [address] Care Team Providers Care Plastic Boat Patcher Name Role Phone Cherrie Prince MD Primary Care Provider [phone] Cherrie Prince MD Unavailable [phone] Roni Hernandez MD Primary Care Provider Encounter Details Date Type Department Care Team (Late st Contact Info) Description 06/14/2020 Telephone [facility] General Internal Medicine [address] [address] Cherrie Prnice MD [address] [place], [place] [id number] Social History Tobacco Use Types Packs/Day Years Used Date Smoking Tobacco: Never Smokeless Tobacco: Never Alcohol Use Standard Drinks/Week Comments Yes 0 (1 standard drink = 0.6 oz pur e alcohol) Comments No Sex and Gender Information Value Date Recorded Sex Assigned at Not on file Legal Sex Female 7:49 AM CUSTOMER SERVICES SUPERVISOR Gender Identity Not on file Sexual Orientation Not on file Occupation Industry Job Start Date 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 Unable to assess 06/02/2020 12:24 PM CS T documented as of this encounter Functional Status documented as of this encounter Miscellaneous Notes * Telephone Encounter - CasanovaLuz jeffers - 06/14/2020 12:20 PM CST Current Provider name: Dr. Cherrie Prince Reason for call: Ms. Romelia Koenig has just recovered from COVID Positive with a 05/28/20 onset. It has left her with cardiac issues, a heart mumur and shortness of breath still. She wants to make sure Dr. Prince requests cardiac back up blood work labs so she can be followed up with as soon as possible. She stated Employee Health has cleared her to come back to work, but the heart and breathing issues have complicated things. Please request additional blood work RUBY. She had ER event 06/13/2020. Patient Call Back number: [phone] OMER SERVICES SUPERVISOR documented in this encounter Plan of Treatment Not on file documented as of this encounter Visit Diagnoses Not on filedocumented in this encounter Additional Health Concerns Infection Onset Date Last Indicated Resolved Time COVID-19 Under Investigation 08/14/2020 08/14/2020 08/14/2020 4:37 PM CUSTOMER SERVICES SUPERVISOR COVID-19 Under Investigation 03/09/2021 03/09/2021 03/09/2021 6:30 PM CDT documented as of this encounter Care Teams Plastic Boat Patcher Relationship Specialty Start Date End Date Cherrie Prince MD [address] [place] [address] PCP - General 05/25/20 04/04/21 Roni Hernandez MD [address] [facility] [place] [address] PCP - General 04/05/21 Cherrie Prince MD [address] [place] [address] Resident - PCP 05/25/20 documented as of this encounter
--- OUTSIDE RECORDS SUMMARY | 2025-05-12 11:42 | XMS_ITS | Encounter Summary ---
Author Organization [facility] Address [address] [facility] [place] [address] Care Team Providers Care Cab Station Attendant Name Role Phone Sera Zaman DO Primary Care Provider [phone] Kay Washington ROD MILL TENDER-BUSINESS DEVELOPMENT ASSISTANT Primary Care Provider + Sera Zaman DO Primary Care Provider Kay Washington ROD MILL TENDER-BUSINESS DEVELOPMENT ASSISTANT Primary Care Provider + Yuliana Coffey ROD MILL TENDER-BUSINESS DEVELOPMENT ASSISTANT Primary Care Provider + Kay Washington ROD MILL TENDER-BUSINESS DEVELOPMENT ASSISTANT Primary Care Provider + Cherrie Prince MD Primary Care Provider [phone] Cherrie Prince MD Primary Care Provider [phone] Cherrie Prince MD Unavailable Roni Hernandez MD Primary Care Provider [phone] Reason for Visit * Reason Onset Date Comments Fever 03/19/2019 R/O triage 1st a ttempt to contact pt LM Encounter Details Date Type Department Care Team (Late st Contact Info) Description 03/19/2019 Telephone [facility] [address] [facility] [address] [place], [place] [id number] Sera Zaman DO [address] DIV OF [place] [address] Fever (R/O triage 1st attempt to contact pt LM) Social History Tobacco Use Types Packs/Day Years Used Date Smoking Tobacco: Never Smokeless Tobacco: Never Alcohol Use Standard Drinks/Week Comments Yes 0 (1 standard drink = 0.6 oz pur e alcohol) Comments No Sex and Gender Information Value Date Recorded Sex Assigned at Not on file Legal Sex Female 7:49 AM SEXOLOGIST Gender Identity Not on file Sexual Orientation Not on file Occupation Industry Job Start Date Job End Date 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 Patient reports she is sting hydrated and urinating and no signs of dehydration. yatient reports sore throatt, body ache, fatigue, congestion, fever, and dry non productive cough . Patient is requesting a steroid Urgent care prescribed Augmentin 875 DX Sinus Infection. RN reinforced to patient disposition to be seen in ED X 3 and patient declined at this time. Patient would like to be seen in ACS or prescribed a steroid pack. Patient concerned that the symptoms have not improved and she is on antibiotic and she is DM. Care advice provided, patient verbalized understanding. Triaged and triage encounter completed ACS scheduled on 03-19-19 @ 3: 20 pm * Telephone Encounter - Grecia Pascal - 03/19/2019 11:20 AM CDT 1st attempt to contact patient to R/O triage for ACs and unable to reach patient at this time. Left message @ [phone] with affiliation and contact number, , no pertient patient information left on voicemail. Will re attempt at a later time. Provided patient with closing statement on voicemail. If anything new develops,if anything gets worse or if you become increasingly concerned for any reason, please seek out immediate medical Attention. documented in this encounter Plan of Treatment Not on file documented as of this encounter Visit Diagnoses Not on filedocumented in this encounter Additional Health Concerns Infection Onset Date Last Indicated Resolved Time COVID-19 Under Investigation 10/12/2019 10/12/2019 10/13/2019 12:17 AM CDT COVID-19 Under Investigation 06/02/2020 06/02/2020 06/03/2020 4:33 PM SEXOLOGIST COVID-19 Confirmed 06/02/2020 06/02/2020 4:34 AM SEXOLOGIST COVID-19 Under Investigation 08/14/2020 08/14/2020 08/14/2020 4:37 PM SEXOLOGIST COVID-19 Under Investigation 03/09/2021 03/09/2021 03/09/2021 6:30 PM CDT documented as of this encounter Care Teams Cab Station Attendant Relationship Specialty Start Date End Date Sera Zaman DO PCP - General 04/14/19 04/14/19 Kay Washington, ROD MILL TENDER-BUSINESS DEVELOPMENT ASSISTANT PCP - General Nurse Practitioner [facility] 04/15/1904/18/19 Sera Zaman DO PCP - General 04/19/19 05/12/19 Kay Washington, ROD MILL TENDER-BUSINESS DEVELOPMENT ASSISTANT PCP - General 05/13/19 05/26/19 Yuliana Coffey ROD MILL TENDER-BUSINESS DEVELOPMENT ASSISTANT [address] [place] [address] PCP - General 05/27/19 05/30/19 Kay Washington APRN-BUSINESS DEVELOPMENT ASSISTANT PCP - General 05/31/19 07/19/19 Cherrie Prince MD [address] [place] [address] PCP - General 07/20/19 05/24/20 Cherrie Prince MD [address] [place] [address] PCP - General 05/25/20 04/04/21 Roni Hernandez MD [address] [place] [address] PCP - General 04/05/21 Cherrie Prince MD [address] [place] [address] Resident - PCP 05/25/20 documented as of this encounter
--- OUTSIDE RECORDS SUMMARY | 2025-05-12 11:43 | XMS_ITS | Patient Health Record ---
Author Organization [facility] As [employer] [facility] Address [address] [facility] [address] [place] [address] Care Team Providers Care Warehouse Manager Name Role Phone Philip PARK, Fatuma Primary Care Provider Tori Barrett Unavailable [phone] Allergies No Known Allergies Results Component Value Reference Range Flag Notes Stimulants Reviewed date:11/19/2024 12:00:28 PM Interpretation: Performing Lab: Notes/Report: Phentermine NEGATIVE 100.0 ng/mL Not Medicate d Consistent Methylphenidate NEGATIVE 50.0 ng/mL Not Medic ated Consistent Methamphetamine NEGATIVE 100.0 ng/mL Not Medi cated Consistent Amphetamine >4000 100.0 POSITIVE Not Medicated Inconsistent Benzodiazepines Reviewed date:11/19/2024 12:00:07 PM Interpretation: Performing Lab:[address] [place] [address], [address] [place] [address], Director - [id number] Notes/Report: An exception occurred while processing this report and so it has incomplete data. Please contact [employer] for assistance. Not Medicated Consistent Not Medicated Consistent Not Medicated Consistent Not Medicated Consistent Not Medicated Consistent Medicated Consistent Not Medicated Consistent Not Medicated Consistent Not Medicated Consistent Not Medicated Consistent 7-Aminoclonazepam NEGATIVE 20.0 ng/mL Temazepam NEGATIVE 40.0 ng/mL Oxazepam NEGATIVE 40.0 ng/mL Midazolam NEGATIVE 40.0 ng/mL Lorazepam 231.0 40.0 ng/mL POSITIVE Nordiazepam NEGATIVE 40.0 ng/mL Diazepam NEGATIVE 40.0 ng/mL Clonazepam NEGATIVE 20.0 ng/mL Hydroxyalprazolam NEGATIVE 20.0 ng/mL Alprazolam NEGATIVE 20.0 ng/mL PDF Report [email or web address]_[email or web address]_SRC_ORU Validity Testing Reviewed date:11/19/2024 12:00:18 PM Interpretation: Performing Lab: Notes/Report: Not Medicated Consistent Not Medicated Consistent Not Medicated Consistent Not Medicated Consistent Specific [place] 1.028 1.003 - 1.030 pH 6.4 3.0 - 10.9 Oxidants -11 200 g/mL Creatinine 88.4 20.0 - 300.0 mg/dL UDT Reviewed date:11/15/2024 04:35:44 PM Interpretation: Performing Lab: Notes/Report: Amphetamine (AMP) POS 0 - 1000 ng/ml Buprenorphine (BUP) NEG 0 - 10 ng/ml Oxazepam (BZO) POS 0 - 300 ng/ml Cocaine (JUD) NEG 0 - 300 ng/ml Methamphetamine (mAMP) NEG 0 - 300 ng/ml Methylenedioxymethamphetamin e (MDMA) NEG 0 - 500 ng/ml Morphine (MOP) NEG 0 - 25 ng/ml Methadone (MTD) NEG 0 - 300 ng/ml Oxycodone (OXY) NEG 0 - 300 ng/ml THC NEG 0 - 50 ng/ml x NEG 0 - 1000 ng/ml x NEG 0 - 1000 ng/ml x NEG 0 - 300 ng/ml x NEG 0 - 300 ng/ml x NEG 0 - 300 ng/ml Reason For Referral No Information Medications Medication SIG (Take, Route, Frequency, Duration) Notes Start Date End Date Status LORazepam 1 MG Tablet 1 tablet Oral Once a day; Duration: 30 days 02/21/2025 Active DULoxetine HCl 60 MG Capsule Delayed Release Particles 1 capsule Oral Once a day; Duration: 90 days 03/08/2025 Active ProAir HFA 108 (90 Base) MCG/ACT Aerosol Solution Inhalation 02/25/2023 Active Jardiance 10 MG Tablet Oral 02/25/2023 Not-Taking Rizatriptan Benzoate 10 MG Tablet Disintegrating Oral 02/25/2023 Active Adderall XR 30 MG Capsule Extended Release 24 Hour 1 capsule in the morning Orally Once a day; Duration: 30 days 04/18/2025 Active Carvedilol 6.25 MG Tablet Oral 02/25/2023 Active Losartan Potassium-HCTZ 50-12.5 MG Tablet Oral 02/25/2023 Not-Taking Topiramate 100 MG Tablet Oral 02/25/2023 Not-Taking Norvasc 10 MG Tablet Oral 02/25/2023 Not-Taking hydrALAZINE HCl 50 MG Tablet Oral 02/25/2023 Not-Taking Ozempic (0.25 or 0.5 MG/DOSE) 2 MG/3ML Solution Pen-injector Subcutaneous *Pick strength-form from [employer] for eRX* 02/25/2023 Not-Taking Social History Tobacco Use: Social History Observation Description Date Details (start date - stop date) Never Smoker NA - NA Sex Assigned At : Social History Observation Description Sex Assigned At Female Social History Miscellaneous: Social Info Question Answer Notes Advance Care Planning Are you your own decision-maker Yes Do you have Power of Mechanical Piping Designer for Health or [facility] sarah? No Safety issues: Are there any firearms in the house? No Social History Social Info Question Answer Notes Household: Marital Status: Number of Adults in household: 4 Number of Children in Household: 1 Level of Education: Not Finished College Drug/Alcohol: Social Info Question Answer Notes Drugs Have you used drugs other than those for medical reasons in the past 12 months? No AUDIT-C (Standard) Points 1 Did you have a drink containing alcohol in the p ast year? Yes How often did you have six or more drinks on one occasion in the past year? Never (0 point) How many drinks did you have on a typical day when you were drinking in the past year? 1 or 2 drinks (0 point) How often did you have a drink containing alcohol in the past year? Monthly or less (1 point) Tobacco Use: Social Info Question Answer Notes Tobacco Control (Standard) Tobacco use: Nonsmoker Additional Details Category Social Info Options Details Miscellaneous: Occupation: Unwmployed Migrated Social History Migrated Social History Alcohol Intake: Occasional 02/25/2023,Tobacco Years: Never smoker 02/25/2023 Drug/Alcohol: Do you smoke marijuana? Den ies Do you drink alcohol? Yes, not v toño often Problems Problem Type SNOMED Code ICD Code Onset Dates Problem Status W/U Status Risk Notes Problem Moderate recurrent major depression (76109890) Major depressive disorder, recurrent, moderate (F33.1) 02/26/20 23 Active confirmed Problem Generalized anxiety disorder (68320107) Generalized anxiety disorder (F41.1) 02/26/20 Active confirmed Problem Posttraumatic stress disorder (86536426) Post-traumatic stress disorder, chronic (F43.12) 02/26/20 Active confirmed Problem Attention deficit hyperactivity disorder, predominantly inattentive type (disorder) (24679016) Attention and concentration deficit (R41.840) 02/26/20 Active confirmed Problem Screening for cardiovascular system disease (982449201) Encounter for screening for cardiovascular disorders (Z13.6) Active confirmed Problem Long-term current use of drug therapy (414475906) Other termite technician (current) drug therapy (Z79.899) 02/26/20 Active confirmed Problem Depression Screening (475718473) Encounter for screening for depression (Z13.31) Active confirmed Problem Elevated blood-pressure reading without diagnosis of hypertension (246625427) Elevated blood pressure reading (R03.0) Active confirmed Vital Signs Heart Rate 99 /min 03/08/2025 Respiratory Rate 16 /min 03/08/2025 Height-cm 162.56 cm 03/08/2025 Blood pressure diastolic 84 mm Hg 03/08/2025 Weight-kg 127.01 kg 03/08/2025 Height 64.00 in 03/08/2025 Blood pressure systolic 138 mm Hg 03/08/2025 Weight 280 lbs 03/08/2025 BMI 48.06 kg/m2 03/08/2025 Encounters Encounter Location Date Provider Diagnosis [facility] [employer] [address] [address] 05/18/2024 Tori Mares Generalized anxiety disorder F41.1 ; Major depressive disorder, recurrent, moderate F33.1 ; Post-traumatic stress disorder, chronic F43.12 ; Attention and concentration deficit R41.840 ; Other penitentiary (current) drug therapy Z79.899 and Elevated blood pressure reading R03.0 [facility] [employer] [place] [id number] [facility] [address] [address] 08/19/2024 Tori Mares Generalized anxiety disorder F41.1 ; Major depressive disorder, recurrent, moderate F33.1 ; Post-traumatic stress disorder, chronic F43.12 ; Attention and concentration deficit R41.840 ; Other penitentiary (current) drug therapy Z79.899 and Elevated blood pressure reading R03.0 [facility] [employer] [place] [address] [facility] [address] [address] 11/15/2024 Tori Thery Encounter for screen ing for depression Z13.31 ; Major depressive disorder, recurrent, moderate F33.1 ; Generalized anxiety disorder F41.1 ; Post-traumatic stress disorder, chronic F43.12 ; Attention and concentration deficit R41.840 ; Other termite technician (current) drug therapy Z79.899 ; Elevated blood pressure reading R03.0 and Encounter for screening for cardiovascular disorders Z13.6 [facility] [address] [facility] [address] [place] [address] 02/28/2025 Tori Thery [facility] [address] [facility] [address] [place] [address] 03/08/2025 Tori Thery Encounter for screen ing for depression Z13.31 ; Major depressive disorder, recurrent, moderate F33.1 ; Generalized anxiety disorder F41.1 ; Post-traumatic stress disorder, chronic F43.12 ; Attention and concentration deficit R41.840 ; Other termite technician (current) drug therapy Z79.899 and Encounter for screening for cardiovascular disorders Z13.6 [place] [address] [address] 12/03/2024 Tori Thery [facility] [address] [address] 06/18/2024 Tori Thery [place] [address] [address] 06/18/2024 Tori Thery Attention and concentration deficit R41.840 [facility] [address] [address] 07/23/2024 Tori Thery Attention and concentration deficit R41.840 and Other specified attention deficit hyperactivity disorder (ADHD) 314.01 [facility] [address] [facility] [address] [place] [address] 08/21/2024 Tori Thery [facility], [facility] [address] [facility] [address] [place] [address] 09/30/2024 Tori Thery Attention and concentration deficit R41.840 [place] [address] [facility] [address] [place] [address] 11/01/2024 Tori Thery Attention and concentration deficit R41.840 and Generalized anxiety disorder F41.1 [facility], [facility] [address] [facility] [address] [place] [address] 11/01/2024 Tori Thery [facility], [facility] [address] [facility] [address] [place] [address] 12/01/2024 Tori Thery Attention and concentration deficit R41.840 [facility] [address] [address] 12/26/2024 Tori Thery Attention and concentration deficit R41.840 [facility] [address] [facility] [address] [place] [address] 01/19/2025 Tori Thery Attention and concentration deficit R41.840 [facility] [address] [address] 01/20/2025 Tori Thery [facility] [address] [address] 02/21/2025 Tori Thery Attention and concentration deficit R41.840 and Generalized anxiety disorder F41.1 [facility] [address] [address] 04/15/2025 Tori Thery [facility] [address] [address] 04/17/2025 Tori Thery Attention and concentration deficit R41.840 Assessments Encounter Date Diagnosis (ICD Code) Assessment Notes Treatment Notes Treatment Clinical Notes Section Notes 05/18/2024 Generalized anxiety disorder (ICD-10 - F41.1) Learning About Generalized Anxiety Disorder material was published, Generalized Anxiety Disorder: Care Instructions material was published, Learning About Anxiety Disorders material was published, Generalized Anxiety Disorder: Care Instructions material was published, Learning About Generalized Anxiety Disorder material was published, Learning About Anxiety Disorders material was published 1. recurrent major depression -educated on UDS and policy and patient agreed, [place] Prescription program reviewed cymbalta 60 mg twice a daily educated on all medications, benefits, side effects and risk, and educated on depression, anxiety, and ADHD, mood d/o and educated on compliance of medications, metabolic and movement d/o education appointment's, continue therapy discussion with patient about course of treatmentand patient instructions. education on serotonin syndrome obtain labs top spotter educated patient KIT-2 test ADHD PCP prescribes at this time and may need top spotter clearance before rx will be prescribed related to cardiac issues- need to schedule- seen yearly 2. Generalized anxiety disorder - cymbalta 60 mg daily Lorazepam 1 mg at bedtime PRN - do not take Ambien no early refill on control substance and pharmacy in [place] and 30 days at a time UDS each vist and random no cannabis use with control substance or other drugs and/or ETOH 3. Chronic post-traumatic stress disorder -refer to therapy 4. ADHD combination -educated patient kit-2 test reviewed Self Report and KIT-AE2 congruent Adderall XR 30 MG DAILY and to take daily in am top spotter apptointment schedule ADHD rx approved had test completed no early refill on control substance [place] pharmacy only limit caffine monitor B/P ADHD stimulates education Discuss with patient risk of misuse, abuse, and addiction before prescribing stimulant medicines. Coordinator Of Rehabilitation Services patients not to share their prescribed stimulant with anyone else. Educate patients and their families on these serious risks, proper storage of the medicine, and proper disposal of any unused medicine. Educated patient will monitor Throughout treatment, regularly assess and monitor them for signs and symptoms of nonmedical use, addiction, and potential diversion, which may be evidenced by more frequent renewal. requests than warranted by the prescribed dosage. Random UDS [place] prescription reviewed local pharmacy in [facility], no early refills on control substance educated on non-stimulate and stimulates may need top spotter clearance for ADHD rx scheduled 05/24/24 see PCP and top spotter with elevated BP educated on high BP and ADHD rx- on B/P rx and see PCP and top spotter scheduled 05/24/24 : Attention and concentration deficit 5. Long-term drug therapy -educated on UDS and policy and patient agreed,educated about cannabis and how may effects medications and mood and behaviors, UDS Ambien Complex Sleep Behaviors complex sleep behaviors may occur, incl. sleep-walking, sleep-driving, and engaging in other activities while not fully awake; may result in serious injuries, incl. ; D/C immediately if pt experiences a complex sleep behavior Discussed and educated pt regarding benzodiazepines are generally not intended for prolonged use and that use can cause tolerance, dependence, depression, and associated memory issues including dementias (this list is not exhaustive). Benzodiazepine use is generally not recommended concurrently with pain medications and/or other controlled substances due to increased risks of profound sedation, respiratory depression, coma, and even . They are not to be used with any alcohol, as this combination can also be lethal. Patient was provided caution http_s://www.nimh .nih.gov/health/t opics/mental-heal th-medications http_s://www.sonia .org/About-Mental -Illness/Treatmen ts/Mental-Health- Medications Recommend decrease/stop cannabis use as it may be negatively impacting mood, motivation, anxiety, sleep, focus; can also contribute to development of psychosis Patient educated on all medications including potential benefits, side effects, risks. Educated on proper dosing schedule and importance of compliance Discussed and educated pt regarding benzodiazepines are generally not intended for prolonged use and that use can cause tolerance, dependence, depression, and associated memory issues including dementias (this list is not exhaustive). Benzodiazepine use is generally not recommended concurrently with pain medications and/or other controlled substances due to educated on all medications, benefits, side effects and risk, and educated on depression, anxiety, and ADHD, mood d/o and educated on compliance of medications, metabolic and movement d/o education appointment is, continue therapy discussion with patient about course of treatment and patient instructions. education on serotonin syndrome SSRI/SNRI side effects discussed including but not limited to, gastric upset, nausea, vomiting, diarrhea and/or constipation, weight changes, sexual side effects including loss of libido, increased suicidal thoughts/behavior s in children and young adults, and serotonin syndrome. Second generation antipsychotics (SGAs) have metabolic syndrome issues with weight gain, increase in prolactin, increased waist circumference, increased lipids, and increased glucose. Thus routine monitoring of weight, metabolic labs, etc. is indicated. A general rank ordering of antipsychotics that have the greatest to the least risk of metabolic effects is olanzapine, quetiapine, risperidone, ziprasidone, and aripiprazole. However, weight gain can occur with all of these drugs and considerable variability exists among patients receiving the same drug regarding the risk of metabolic effects. Anti-psychotic agents not only increase the risk of metabolic disorder, they also increase the risk of CVA, akathisia, and movement disorders including EPS or tardive dyskinesia (more common with first generation antipsychotics) and more. Medication Management and Follow-Up - Plan: - Schedule follow-up appointments every 1-3 months to monitor the patient's response to the medication regimen. - Reinforce the importance of avoiding recreational drug use due to potential neurotoxicity and interactions with prescribed medications. 07/23/2024 Attention and concentration deficit (ICD-10 - R41.840) 09/30/2024 Attention and concentration deficit (ICD-10 - R41.840) 11/01/2024 Attention and concentration deficit (ICD-10 - R41.840) 11/15/2024 Major depressive disorder, recurrent, moderate (ICD-10 - F33.1) Preventing Depression From Coming Back: Care Instructions material was published, Seasonal Affective Disorder: Care Instructions material was published, Depression Treatment: Care Instructions material was published, Learning About Depression Screening material was published, Learning About Depression material was published, Preventing Depression From Coming Back: Care Instructions material was published 1. major depression - educated on UDS and policy and patient agreed, [place] Prescription program reviewed Continue cymbalta 60 mg daily educated on all medications, benefits, side effects and risk, and educated on depression, anxiety, and ADHD, mood d/o and educated on compliance of medications, metabolic and movement d/o education appointment's, continue therapy discussion with patient about course of treatmentand patient instructions. education on serotonin syndrome labs top spotter/PCP SEE PCP and labs scheduled educated patient KIT-2 test top spotter clearance before rx will be prescribed related to cardiac issues- - seen yearly 2. Generalized anxiety disorder - cymbalta 60 mg daily Lorazepam 1 mg at bedtime PRN - no refill needed today no early refill on control substance and pharmacy in [place] and 30 days at a time UDS each vist and random no cannabis use with control substance or other drugs and/or ETOH 3. Chronic post-traumatic stress disorder -refer to therapy 4. ADHD combination -educated patient kit-2 test reviewed Self Report and KIT-AE2 congruent Adderall XR 30 MG DAILY and to take daily in am- no refill needed today top spotter ADHD rx approved no early refill on control substance [place] pharmacy only limit caffine monitor B/P ADHD stimulates education Discuss with patient risk of misuse, abuse, and addiction before prescribing stimulant medicines. Coordinator Of Rehabilitation Services patients not to share their prescribed stimulant with anyone else. Educate patients and their families on these serious risks, proper storage of the medicine, and proper disposal of any unused medicine. Educated patient will monitor Throughout treatment, regularly assess and monitor them for signs and symptoms of nonmedical use, addiction, and potential diversion, which may be evidenced by more frequent renewal. requests than warranted by the prescribed dosage. Random UDS [place] prescription reviewed local pharmacy in [place], no early refills on control substance educated on non-stimulate and stimulates top spotter clearance for ADHD see PCP and top spotter BP educated on high BP and ADHD rx- on B/P rx and see PCP and top spotter scheduled 05/24/24 : Attention and concentration deficit 5. Long-term drug therapy -educated on UDS and policy and patient agreed,educated about cannabis and how may effects medications and mood and behaviors, UDS Ambien Complex Sleep Behaviors complex sleep behaviors may occur, incl. sleep-walking, sleep-driving, and engaging in other activities while not fully awake; may result in serious injuries, incl. ; D/C immediately if pt experiences a complex sleep behavior Discussed and educated pt regarding benzodiazepines are generally not intended for prolonged use and that use can cause tolerance, dependence, depression, and associated memory issues including dementias (this list is not exhaustive). Benzodiazepine use is generally not recommended concurrently with pain medications and/or other controlled substances due to increased risks of profound sedation, respiratory depression, coma, and even . They are not to be used with any alcohol, as this combination can also be lethal. Patient was provided caution http_s://www.nimh .nih.gov/health/t opics/mental-heal th-medications http_s://www.sonia .org/About-Mental -Illness/Treatmen ts/Mental-Health- Medications Recommend decrease/stop cannabis use as it may be negatively impacting mood, motivation, anxiety, sleep, focus; can also contribute to development of psychosis Patient educated on all medications including potential benefits, side effects, risks. Educated on proper dosing schedule and importance of compliance Discussed and educated pt regarding benzodiazepines are generally not intended for prolonged use and that use can cause tolerance, dependence, depression, and associated memory issues including dementias (this list is not exhaustive). Benzodiazepine use is generally not recommended concurrently with pain medications and/or other controlled substances due to educated on all medications, benefits, side effects and risk, and educated on depression, anxiety, and ADHD, mood d/o and educated on compliance of medications, metabolic and movement d/o education appointment is, continue therapy discussion with patient about course of treatment and patient instructions. education on serotonin syndrome SSRI/SNRI side effects discussed including but not limited to, gastric upset, nausea, vomiting, diarrhea and/or constipation, weight changes, sexual side effects including loss of libido, increased suicidal thoughts/behavior s in children and young adults, and serotonin syndrome. Second generation antipsychotics (SGAs) have metabolic syndrome issues with weight gain, increase in prolactin, increased waist circumference, increased lipids, and increased glucose. Thus routine monitoring of weight, metabolic labs, etc. is indicated. A general rank ordering of antipsychotics that have the greatest to the least risk of metabolic effects is olanzapine, quetiapine, risperidone, ziprasidone, and aripiprazole. However, weight gain can occur with all of these drugs and considerable variability exists among patients receiving the same drug regarding the risk of metabolic effects. Anti-psychotic agents not only increase the risk of metabolic disorder, they also increase the risk of CVA, akathisia, and movement disorders including EPS or tardive dyskinesia (more common with first generation antipsychotics) and more. Medication Management and Follow-Up - Plan: - Schedule follow-up appointments every 1-3 months to monitor the patient's response to the medication regimen. - Reinforce the importance of avoiding recreational drug use due to potential neurotoxicity and interactions with prescribed medications. 11/15/2024 Encounter for screening for depression (ICD-10 - Z13.31) 1. major depression - educated on UDS and policy and patient agreed, [place] Prescription program reviewed Continue cymbalta 60 mg daily educated on all medications, benefits, side effects and risk, and educated on depression, anxiety, and ADHD, mood d/o and educated on compliance of medications, metabolic and movement d/o education appointment's, continue therapy discussion with patient about course of treatmentand patient instructions. education on serotonin syndrome labs top spotter/PCP SEE PCP and labs scheduled educated patient KIT-2 test top spotter clearance before rx will be prescribed related to cardiac issues- - seen yearly 2. Generalized anxiety disorder - cymbalta 60 mg daily Lorazepam 1 mg at bedtime PRN - no refill needed today no early refill on control substance and pharmacy in [place] and 30 days at a time UDS each vist and random no cannabis use with control substance or other drugs and/or ETOH 3. Chronic post-traumatic stress disorder -refer to therapy 4. ADHD combination -educated patient kit-2 test reviewed Self Report and KIT-AE2 congruent Adderall XR 30 MG DAILY and to take daily in am- no refill needed today top spotter ADHD rx approved no early refill on control substance [place] pharmacy only limit caffine monitor B/P ADHD stimulates education Discuss with patient risk of misuse, abuse, and addiction before prescribing stimulant medicines. [facility] Services patients not to share their prescribed stimulant with anyone else. Educate patients and their families on these serious risks, proper storage of the medicine, and proper disposal of any unused medicine. Educated patient will monitor Throughout treatment, regularly assess and monitor them for signs and symptoms of nonmedical use, addiction, and potential diversion, which may be evidenced by more frequent renewal. requests than warranted by the prescribed dosage. Random UDS [place] prescription reviewed local pharmacy in [place], no early refills on control substance educated on non-stimulate and stimulates top spotter clearance for ADHD see PCP and top spotter BP educated on high BP and ADHD rx- on B/P rx and see PCP and top spotter scheduled 05/24/24 : Attention and concentration deficit 5. Long-term drug therapy -educated on UDS and policy and patient agreed,educated about cannabis and how may effects medications and mood and behaviors, UDS Ambien Complex Sleep Behaviors complex sleep behaviors may occur, incl. sleep-walking, sleep-driving, and engaging in other activities while not fully awake; may result in serious injuries, incl. ; D/C immediately if pt experiences a complex sleep behavior Discussed and educated pt regarding benzodiazepines are generally not intended for prolonged use and that use can cause tolerance, dependence, depression, and associated memory issues including dementias (this list is not exhaustive). Benzodiazepine use is generally not recommended concurrently with pain medications and/or other controlled substances due to increased risks of profound sedation, respiratory depression, coma, and even . They are not to be used with any alcohol, as this combination can also be lethal. Patient was provided caution http_s://www.nimh .nih.gov/health/t opics/mental-heal th-medications http_s://www.[facility] .org/About-Mental -Illness/Treatmen ts/Mental-Health- Medications Recommend decrease/stop cannabis use as it may be negatively impacting mood, motivation, anxiety, sleep, focus; can also contribute to development of psychosis Patient educated on all medications including potential benefits, side effects, risks. Educated on proper dosing schedule and importance of compliance Discussed and educated pt regarding benzodiazepines are generally not intended for prolonged use and that use can cause tolerance, dependence, depression, and associated memory issues including dementias (this list is not exhaustive). Benzodiazepine use is generally not recommended concurrently with pain medications and/or other controlled substances due to educated on all medications, benefits, side effects and risk, and educated on depression, anxiety, and ADHD, mood d/o and educated on compliance of medications, metabolic and movement d/o education appointment is, continue therapy discussion with patient about course of treatment and patient instructions. education on serotonin syndrome SSRI/SNRI side effects discussed including but not limited to, gastric upset, nausea, vomiting, diarrhea and/or constipation, weight changes, sexual side effects including loss of libido, increased suicidal thoughts/behavior s in children and young adults, and serotonin syndrome. Second generation antipsychotics (SGAs) have metabolic syndrome issues with weight gain, increase in prolactin, increased waist circumference, increased lipids, and increased glucose. Thus routine monitoring of weight, metabolic labs, etc. is indicated. A general rank ordering of antipsychotics that have the greatest to the least risk of metabolic effects is olanzapine, quetiapine, risperidone, ziprasidone, and aripiprazole. However, weight gain can occur with all of these drugs and considerable variability exists among patients receiving the same drug regarding the risk of metabolic effects. Anti-psychotic agents not only increase the risk of metabolic disorder, they also increase the risk of CVA, akathisia, and movement disorders including EPS or tardive dyskinesia (more common with first generation antipsychotics) and more. Medication Management and Follow-Up - Plan: - Schedule follow-up appointments every 1-3 months to monitor the patient's response to the medication regimen. - Reinforce the importance of avoiding recreational drug use due to potential neurotoxicity and interactions with prescribed medications. 02/21/2025 Attention and concentration deficit (ICD-10 - R41.840) 12/26/2024 Attention and concentration deficit (ICD-10 - R41.840) 01/19/2025 Attention and concentration deficit (ICD-10 - R41.840) 03/08/2025 Encounter for screening for depression (ICD-10 - Z13.31) 1. major depression - educated on UDS and policy and patient agreed, [place] Prescription program reviewed Continue cymbalta 60 mg daily educated on all medications, benefits, side effects and risk, and educated on depression, anxiety, and ADHD, mood d/o and educated on compliance of medications, metabolic and movement d/o education appointment's, continue therapy discussion with patient about course of treatmentand patient instructions. education on serotonin syndrome labs top spotter/PCP SEE PCP and labs scheduled educated patient KIT-2 test top spotter clearance before rx will be prescribed related to cardiac issues- - seen yearly 2. Generalized anxiety disorder - cymbalta 60 mg daily Lorazepam 1 mg at bedtime PRN - no refill needed today no early refill on control substance and pharmacy in [place] and 30 days at a time UDS each vist and random no cannabis use with control substance or other drugs and/or ETOH 3. Chronic post-traumatic stress disorder -refer to therapy 4. ADHD combination -educated patient kit-2 test reviewed Self Report and KIT-AE2 congruent Adderall XR 30 MG DAILY and to take daily in am- no refill needed today top spotter ADHD rx approved no early refill on control substance [place] pharmacy only limit caffine monitor B/P ADHD stimulates education Discuss with patient risk of misuse, abuse, and addiction before prescribing stimulant medicines. [facility] patients not to share their prescribed stimulant with anyone else. Educate patients and their families on these serious risks, proper storage of the medicine, and proper disposal of any unused medicine. Educated patient will monitor Throughout treatment, regularly assess and monitor them for signs and symptoms of nonmedical use, addiction, and potential diversion, which may be evidenced by more frequent renewal. requests than warranted by the prescribed dosage. Random UDS [place] prescription reviewed local pharmacy in [facility], no early refills on control substance educated on non-stimulate and stimulates top spotter clearance for ADHD recieved 11/05 and see every 6 months see PCP and top spotter BP educated on high BP and ADHD rx- on B/P rx and seen PCP and top spotter seen 11/05 Attention and concentration deficit 5. Long-term drug therapy -educated on UDS and policy and patient agreed,educated about cannabis and how may effects medications and mood and behaviors, UDS Ambien Complex Sleep Behaviors complex sleep behaviors may occur, incl. sleep-walking, sleep-driving, and engaging in other activities while not fully awake; may result in serious injuries, incl. ; D/C immediately if pt experiences a complex sleep behavior Discussed and educated pt regarding benzodiazepines are generally not intended for prolonged use and that use can cause tolerance, dependence, depression, and associated memory issues including dementias (this list is not exhaustive). Benzodiazepine use is generally not recommended concurrently with pain medications and/or other controlled substances due to increased risks of profound sedation, respiratory depression, coma, and even . They are not to be used with any alcohol, as this combination can also be lethal. Patient was provided caution http_s://www.nimh .nih.gov/health/t opics/mental-heal th-medications http_s://www.[facility] .org/About-Mental -Illness/Treatmen ts/Mental-Health- Medications Recommend decrease/stop cannabis use as it may be negatively impacting mood, motivation, anxiety, sleep, focus; can also contribute to development of psychosis Patient educated on all medications including potential benefits, side effects, risks. Educated on proper dosing schedule and importance of compliance Discussed and educated pt regarding benzodiazepines are generally not intended for prolonged use and that use can cause tolerance, dependence, depression, and associated memory issues including dementias (this list is not exhaustive). Benzodiazepine use is generally not recommended concurrently with pain medications and/or other controlled substances due to educated on all medications, benefits, side effects and risk, and educated on depression, anxiety, and ADHD, mood d/o and educated on compliance of medications, metabolic and movement d/o education appointment is, continue therapy discussion with patient about course of treatment and patient instructions. education on serotonin syndrome SSRI/SNRI side effects discussed including but not limited to, gastric upset, nausea, vomiting, diarrhea and/or constipation, weight changes, sexual side effects including loss of libido, increased suicidal thoughts/behavior s in children and young adults, and serotonin syndrome. Second generation antipsychotics (SGAs) have metabolic syndrome issues with weight gain, increase in prolactin, increased waist circumference, increased lipids, and increased glucose. Thus routine monitoring of weight, metabolic labs, etc. is indicated. A general rank ordering of antipsychotics that have the greatest to the least risk of metabolic effects is olanzapine, quetiapine, risperidone, ziprasidone, and aripiprazole. However, weight gain can occur with all of these drugs and considerable variability exists among patients receiving the same drug regarding the risk of metabolic effects. Anti-psychotic agents not only increase the risk of metabolic disorder, they also increase the risk of CVA, akathisia, and movement disorders including EPS or tardive dyskinesia (more common with first generation antipsychotics) and more. Medication Management and Follow-Up - Plan: - Schedule follow-up appointments every 1-3 months to monitor the patient's response to the medication regimen. - Reinforce the importance of avoiding recreational drug use due to potential neurotoxicity and interactions with prescribed medications. 04/17/2025 Attention and concentration deficit (ICD-10 - R41.840) 08/19/2024 Generalized anxiety disorder (ICD-10 - F41.1) Learning About Generalized Anxiety Disorder material was published, Generalized Anxiety Disorder: Care Instructions material was published, Learning About Anxiety Disorders material was published, Generalized Anxiety Disorder: Care Instructions material was published, Learning About Generalized Anxiety Disorder material was published, Learning About Anxiety Disorders material was published 1. major depression - educated on UDS and policy and patient agreed, [place] Prescription program reviewed Continue cymbalta 60 mg daily educated on all medications, benefits, side effects and risk, and educated on depression, anxiety, and ADHD, mood d/o and educated on compliance of medications, metabolic and movement d/o education appointment's, continue therapy discussion with patient about course of treatmentand patient instructions. education on serotonin syndrome labs top spotter/PCP SCHEDULE TO SEE PCP and labs 11/05 educated patient KIT-2 test top spotter clearance before rx will be prescribed related to cardiac issues- - seen yearly 2. Generalized anxiety disorder - cymbalta 60 mg daily Lorazepam 1 mg at bedtime PRN - no refill needed today no early refill on control substance and pharmacy in [place] and 30 days at a time UDS each vist and random no cannabis use with control substance or other drugs and/or ETOH 3. Chronic post-traumatic stress disorder -refer to therapy 4. ADHD combination -educated patient kit-2 test reviewed Self Report and KIT-AE2 congruent Adderall XR 30 MG DAILY and to take daily in am- refill due 08/19/24 top spotter apptointment schedule ADHD rx approved had test completed no early refill on control substance [place] pharmacy only limit caffine monitor B/P ADHD stimulates education Discuss with patient risk of misuse, abuse, and addiction before prescribing stimulant medicines. [facility] Services patients not to share their prescribed stimulant with anyone else. Educate patients and their families on these serious risks, proper storage of the medicine, and proper disposal of any unused medicine. Educated patient will monitor Throughout treatment, regularly assess and monitor them for signs and symptoms of nonmedical use, addiction, and potential diversion, which may be evidenced by more frequent renewal. requests than warranted by the prescribed dosage. Random UDS [place] prescription reviewed local pharmacy in [place], no early refills on control substance educated on non-stimulate and stimulates top spotter clearance for ADHD see PCP and top spotter BP educated on high BP and ADHD rx- on B/P rx and see PCP and top spotter scheduled 05/24/24 : Attention and concentration deficit 5. Long-term drug therapy -educated on UDS and policy and patient agreed,educated about cannabis and how may effects medications and mood and behaviors, UDS Ambien Complex Sleep Behaviors complex sleep behaviors may occur, incl. sleep-walking, sleep-driving, and engaging in other activities while not fully awake; may result in serious injuries, incl. ; D/C immediately if pt experiences a complex sleep behavior Discussed and educated pt regarding benzodiazepines are generally not intended for prolonged use and that use can cause tolerance, dependence, depression, and associated memory issues including dementias (this list is not exhaustive). Benzodiazepine use is generally not recommended concurrently with pain medications and/or other controlled substances due to increased risks of profound sedation, respiratory depression, coma, and even . They are not to be used with any alcohol, as this combination can also be lethal. Patient was provided caution http_s://www.nimh .nih.gov/health/t opics/mental-heal th-medications http_s://www.[facility] .org/About-Mental -Illness/Treatmen ts/Mental-Health- Medications Recommend decrease/stop cannabis use as it may be negatively impacting mood, motivation, anxiety, sleep, focus; can also contribute to development of psychosis Patient educated on all medications including potential benefits, side effects, risks. Educated on proper dosing schedule and importance of compliance Discussed and educated pt regarding benzodiazepines are generally not intended for prolonged use and that use can cause tolerance, dependence, depression, and associated memory issues including dementias (this list is not exhaustive). Benzodiazepine use is generally not recommended concurrently with pain medications and/or other controlled substances due to educated on all medications, benefits, side effects and risk, and educated on depression, anxiety, and ADHD, mood d/o and educated on compliance of medications, metabolic and movement d/o education appointment is, continue therapy discussion with patient about course of treatment and patient instructions. education on serotonin syndrome SSRI/SNRI side effects discussed including but not limited to, gastric upset, nausea, vomiting, diarrhea and/or constipation, weight changes, sexual side effects including loss of libido, increased suicidal thoughts/behavior s in children and young adults, and serotonin syndrome. Second generation antipsychotics (SGAs) have metabolic syndrome issues with weight gain, increase in prolactin, increased waist circumference, increased lipids, and increased glucose. Thus routine monitoring of weight, metabolic labs, etc. is indicated. A general rank ordering of antipsychotics that have the greatest to the least risk of metabolic effects is olanzapine, quetiapine, risperidone, ziprasidone, and aripiprazole. However, weight gain can occur with all of these drugs and considerable variability exists among patients receiving the same drug regarding the risk of metabolic effects. Anti-psychotic agents not only increase the risk of metabolic disorder, they also increase the risk of CVA, akathisia, and movement disorders including EPS or tardive dyskinesia (more common with first generation antipsychotics) and more. Medication Management and Follow-Up - Plan: - Schedule follow-up appointments every 1-3 months to monitor the patient's response to the medication regimen. - Reinforce the importance of avoiding recreational drug use due to potential neurotoxicity and interactions with prescribed medications. 06/18/2024 Attention and concentration deficit (ICD-10 - R41.840) 12/01/2024 Attention and concentration deficit (ICD-10 - R41.840) 08/19/2024 Major depressive disorder, recurrent, moderate (ICD-10 - F33.1) Preventing Depression From Coming Back: Care Instructions material was published, Seasonal Affective Disorder: Care Instructions material was published, Depression Treatment: Care Instructions material was published, Learning About Depression Screening material was published, Learning About Depression material was published, Preventing Depression From Coming Back: Care Instructions material was published 1. major depression - educated on UDS and policy and patient agreed, [place] Prescription program reviewed Continue cymbalta 60 mg daily educated on all medications, benefits, side effects and risk, and educated on depression, anxiety, and ADHD, mood d/o and educated on compliance of medications, metabolic and movement d/o education appointment's, continue therapy discussion with patient about course of treatmentand patient instructions. education on serotonin syndrome labs top spotter/PCP SCHEDULE TO SEE PCP and labs 11/05 educated patient KTI-2 test top spotter clearance before rx will be prescribed related to cardiac issues- - seen yearly 2. Generalized anxiety disorder - cymbalta 60 mg daily Lorazepam 1 mg at bedtime PRN - no refill needed today no early refill on control substance and pharmacy in [place] and 30 days at a time UDS each vist and random no cannabis use with control substance or other drugs and/or ETOH 3. Chronic post-traumatic stress disorder -refer to therapy 4. ADHD combination -educated patient kit-2 test reviewed Self Report and KIT-AE2 congruent Adderall XR 30 MG DAILY and to take daily in am- refill due 08/19/24 top spotter apptointment schedule ADHD rx approved had test completed no early refill on control substance [place] pharmacy only limit caffine monitor B/P ADHD stimulates education Discuss with patient risk of misuse, abuse, and addiction before prescribing stimulant medicines. Coordinator Of Rehabilitation Services patients not to share their prescribed stimulant with anyone else. Educate patients and their families on these serious risks, proper storage of the medicine, and proper disposal of any unused medicine. Educated patient will monitor Throughout treatment, regularly assess and monitor them for signs and symptoms of nonmedical use, addiction, and potential diversion, which may be evidenced by more frequent renewal. requests than warranted by the prescribed dosage. Random UDS [place] prescription reviewed local pharmacy in [facility], no early refills on control substance educated on non-stimulate and stimulates top spotter clearance for ADHD see PCP and top spotter BP educated on high BP and ADHD rx- on B/P rx and see PCP and top spotter scheduled 05/24/24 : Attention and concentration deficit 5. Long-term drug therapy -educated on UDS and policy and patient agreed,educated about cannabis and how may effects medications and mood and behaviors, UDS Ambien Complex Sleep Behaviors complex sleep behaviors may occur, incl. sleep-walking, sleep-driving, and engaging in other activities while not fully awake; may result in serious injuries, incl. ; D/C immediately if pt experiences a complex sleep behavior Discussed and educated pt regarding benzodiazepines are generally not intended for prolonged use and that use can cause tolerance, dependence, depression, and associated memory issues including dementias (this list is not exhaustive). Benzodiazepine use is generally not recommended concurrently with pain medications and/or other controlled substances due to increased risks of profound sedation, respiratory depression, coma, and even . They are not to be used with any alcohol, as this combination can also be lethal. Patient was provided caution http_s://www.nimh .nih.gov/health/t opics/mental-heal th-medications http_s://www.[facility] .org/About-Mental -Illness/Treatmen ts/Mental-Health- Medications Recommend decrease/stop cannabis use as it may be negatively impacting mood, motivation, anxiety, sleep, focus; can also contribute to development of psychosis Patient educated on all medications including potential benefits, side effects, risks. Educated on proper dosing schedule and importance of compliance Discussed and educated pt regarding benzodiazepines are generally not intended for prolonged use and that use can cause tolerance, dependence, depression, and associated memory issues including dementias (this list is not exhaustive). Benzodiazepine use is generally not recommended concurrently with pain medications and/or other controlled substances due to educated on all medications, benefits, side effects and risk, and educated on depression, anxiety, and ADHD, mood d/o and educated on compliance of medications, metabolic and movement d/o education appointment is, continue therapy discussion with patient about course of treatment and patient instructions. education on serotonin syndrome SSRI/SNRI side effects discussed including but not limited to, gastric upset, nausea, vomiting, diarrhea and/or constipation, weight changes, sexual side effects including loss of libido, increased suicidal thoughts/behavior s in children and young adults, and serotonin syndrome. Second generation antipsychotics (SGAs) have metabolic syndrome issues with weight gain, increase in prolactin, increased waist circumference, increased lipids, and increased glucose. Thus routine monitoring of weight, metabolic labs, etc. is indicated. A general rank ordering of antipsychotics that have the greatest to the least risk of metabolic effects is olanzapine, quetiapine, risperidone, ziprasidone, and aripiprazole. However, weight gain can occur with all of these drugs and considerable variability exists among patients receiving the same drug regarding the risk of metabolic effects. Anti-psychotic agents not only increase the risk of metabolic disorder, they also increase the risk of CVA, akathisia, and movement disorders including EPS or tardive dyskinesia (more common with first generation antipsychotics) and more. Medication Management and Follow-Up - Plan: - Schedule follow-up appointments every 1-3 months to monitor the patient's response to the medication regimen. - Reinforce the importance of avoiding recreational drug use due to potential neurotoxicity and interactions with prescribed medications. 02/21/2025 Generalized anxiety disorder (ICD-10 - F41.1) 03/08/2025 Major depressive disorder, recurrent, moderate (ICD-10 - F33.1) Preventing Depression From Coming Back: Care Instructions material was published, Seasonal Affective Disorder: Care Instructions material was published, Depression Treatment: Care Instructions material was published, Learning About Depression Screening material was published, Learning About Depression material was published, Preventing Depression From Coming Back: Care Instructions material was published 1. major depression - educated on UDS and policy and patient agreed, [place] Prescription program reviewed Continue cymbalta 60 mg daily educated on all medications, benefits, side effects and risk, and educated on depression, anxiety, and ADHD, mood d/o and educated on compliance of medications, metabolic and movement d/o education appointment's, continue therapy discussion with patient about course of treatmentand patient instructions. education on serotonin syndrome labs top spotter/PCP SEE PCP and labs scheduled educated patient KIT-2 test top spotter clearance before rx will be prescribed related to cardiac issues- - seen yearly 2. Generalized anxiety disorder - cymbalta 60 mg daily Lorazepam 1 mg at bedtime PRN - no refill needed today no early refill on control substance and pharmacy in [place] and 30 days at a time UDS each vist and random no cannabis use with control substance or other drugs and/or ETOH 3. Chronic post-traumatic stress disorder -refer to therapy 4. ADHD combination -educated patient kit-2 test reviewed Self Report and KIT-AE2 congruent Adderall XR 30 MG DAILY and to take daily in am- no refill needed today top spotter ADHD rx approved no early refill on control substance [place] pharmacy only limit caffine monitor B/P ADHD stimulates education Discuss with patient risk of misuse, abuse, and addiction before prescribing stimulant medicines. [facility] Of [facility] Services patients not to share their prescribed stimulant with anyone else. Educate patients and their families on these serious risks, proper storage of the medicine, and proper disposal of any unused medicine. Educated patient will monitor Throughout treatment, regularly assess and monitor them for signs and symptoms of nonmedical use, addiction, and potential diversion, which may be evidenced by more frequent renewal. requests than warranted by the prescribed dosage. Random UDS [place] prescription reviewed local pharmacy in [place], no early refills on control substance educated on non-stimulate and stimulates top spotter clearance for ADHD recieved 11/05 and see every 6 months see PCP and top spotter BP educated on high BP and ADHD rx- on B/P rx and seen PCP and top spotter seen 11/05 Attention and concentration deficit 5. Long-term drug therapy -educated on UDS and policy and patient agreed,educated about cannabis and how may effects medications and mood and behaviors, UDS Ambien Complex Sleep Behaviors complex sleep behaviors may occur, incl. sleep-walking, sleep-driving, and engaging in other activities while not fully awake; may result in serious injuries, incl. ; D/C immediately if pt experiences a complex sleep behavior Discussed and educated pt regarding benzodiazepines are generally not intended for prolonged use and that use can cause tolerance, dependence, depression, and associated memory issues including dementias (this list is not exhaustive). Benzodiazepine use is generally not recommended concurrently with pain medications and/or other controlled substances due to increased risks of profound sedation, respiratory depression, coma, and even . They are not to be used with any alcohol, as this combination can also be lethal. Patient was provided caution http_s://www.nimh .nih.gov/health/t opics/mental-heal th-medications http_s://www.[facility] .org/About-Mental -Illness/Treatmen ts/Mental-Health- Medications Recommend decrease/stop cannabis use as it may be negatively impacting mood, motivation, anxiety, sleep, focus; can also contribute to development of psychosis Patient educated on all medications including potential benefits, side effects, risks. Educated on proper dosing schedule and importance of compliance Discussed and educated pt regarding benzodiazepines are generally not intended for prolonged use and that use can cause tolerance, dependence, depression, and associated memory issues including dementias (this list is not exhaustive). Benzodiazepine use is generally not recommended concurrently with pain medications and/or other controlled substances due to educated on all medications, benefits, side effects and risk, and educated on depression, anxiety, and ADHD, mood d/o and educated on compliance of medications, metabolic and movement d/o education appointment is, continue therapy discussion with patient about course of treatment and patient instructions. education on serotonin syndrome SSRI/SNRI side effects discussed including but not limited to, gastric upset, nausea, vomiting, diarrhea and/or constipation, weight changes, sexual side effects including loss of libido, increased suicidal thoughts/behavior s in children and young adults, and serotonin syndrome. Second generation antipsychotics (SGAs) have metabolic syndrome issues with weight gain, increase in prolactin, increased waist circumference, increased lipids, and increased glucose. Thus routine monitoring of weight, metabolic labs, etc. is indicated. A general rank ordering of antipsychotics that have the greatest to the least risk of metabolic effects is olanzapine, quetiapine, risperidone, ziprasidone, and aripiprazole. However, weight gain can occur with all of these drugs and considerable variability exists among patients receiving the same drug regarding the risk of metabolic effects. Anti-psychotic agents not only increase the risk of metabolic disorder, they also increase the risk of CVA, akathisia, and movement disorders including EPS or tardive dyskinesia (more common with first generation antipsychotics) and more. Medication Management and Follow-Up - Plan: - Schedule follow-up appointments every 1-3 months to monitor the patient's response to the medication regimen. - Reinforce the importance of avoiding recreational drug use due to potential neurotoxicity and interactions with prescribed medications. 03/08/2025 Generalized anxiety disorder (ICD-10 - F41.1) Learning About Generalized Anxiety Disorder material was published, Generalized Anxiety Disorder: Care Instructions material was published, Learning About Anxiety Disorders material was published, Generalized Anxiety Disorder: Care Instructions material was published, Learning About Generalized Anxiety Disorder material was published, Learning About Anxiety Disorders material was published 1. major depression - educated on UDS and policy and patient agreed, [place] Prescription program reviewed Continue cymbalta 60 mg daily educated on all medications, benefits, side effects and risk, and educated on depression, anxiety, and ADHD, mood d/o and educated on compliance of medications, metabolic and movement d/o education appointment's, continue therapy discussion with patient about course of treatmentand patient instructions. education on serotonin syndrome labs top spotter/PCP SEE PCP and labs scheduled educated patient KIT-2 test top spotter clearance before rx will be prescribed related to cardiac issues- - seen yearly 2. Generalized anxiety disorder - cymbalta 60 mg daily Lorazepam 1 mg at bedtime PRN - no refill needed today no early refill on control substance and pharmacy in [place] and 30 days at a time UDS each vist and random no cannabis use with control substance or other drugs and/or ETOH 3. Chronic post-traumatic stress disorder -refer to therapy 4. ADHD combination -educated patient kit-2 test reviewed Self Report and KIT-AE2 congruent Adderall XR 30 MG DAILY and to take daily in am- no refill needed today top spotter ADHD rx approved no early refill on control substance [place] pharmacy only limit caffine monitor B/P ADHD stimulates education Discuss with patient risk of misuse, abuse, and addiction before prescribing stimulant medicines. [facility] Services patients not to share their prescribed stimulant with anyone else. Educate patients and their families on these serious risks, proper storage of the medicine, and proper disposal of any unused medicine. Educated patient will monitor Throughout treatment, regularly assess and monitor them for signs and symptoms of nonmedical use, addiction, and potential diversion, which may be evidenced by more frequent renewal. requests than warranted by the prescribed dosage. Random UDS [place] prescription reviewed local pharmacy in [facility], no early refills on control substance educated on non-stimulate and stimulates top spotter clearance for ADHD recieved 11/05 and see every 6 months see PCP and top spotter BP educated on high BP and ADHD rx- on B/P rx and seen PCP and top spotter seen 11/05 Attention and concentration deficit 5. Long-term drug therapy -educated on UDS and policy and patient agreed,educated about cannabis and how may effects medications and mood and behaviors, UDS Ambien Complex Sleep Behaviors complex sleep behaviors may occur, incl. sleep-walking, sleep-driving, and engaging in other activities while not fully awake; may result in serious injuries, incl. ; D/C immediately if pt experiences a complex sleep behavior Discussed and educated pt regarding benzodiazepines are generally not intended for prolonged use and that use can cause tolerance, dependence, depression, and associated memory issues including dementias (this list is not exhaustive). Benzodiazepine use is generally not recommended concurrently with pain medications and/or other controlled substances due to increased risks of profound sedation, respiratory depression, coma, and even . They are not to be used with any alcohol, as this combination can also be lethal. Patient was provided caution http_s://www.nimh .nih.gov/health/t opics/mental-heal th-medications http_s://www.[facility] .org/About-Mental -Illness/Treatmen ts/Mental-Health- Medications Recommend decrease/stop cannabis use as it may be negatively impacting mood, motivation, anxiety, sleep, focus; can also contribute to development of psychosis Patient educated on all medications including potential benefits, side effects, risks. Educated on proper dosing schedule and importance of compliance Discussed and educated pt regarding benzodiazepines are generally not intended for prolonged use and that use can cause tolerance, dependence, depression, and associated memory issues including dementias (this list is not exhaustive). Benzodiazepine use is generally not recommended concurrently with pain medications and/or other controlled substances due to educated on all medications, benefits, side effects and risk, and educated on depression, anxiety, and ADHD, mood d/o and educated on compliance of medications, metabolic and movement d/o education appointment is, continue therapy discussion with patient about course of treatment and patient instructions. education on serotonin syndrome SSRI/SNRI side effects discussed including but not limited to, gastric upset, nausea, vomiting, diarrhea and/or constipation, weight changes, sexual side effects including loss of libido, increased suicidal thoughts/behavior s in children and young adults, and serotonin syndrome. Second generation antipsychotics (SGAs) have metabolic syndrome issues with weight gain, increase in prolactin, increased waist circumference, increased lipids, and increased glucose. Thus routine monitoring of weight, metabolic labs, etc. is indicated. A general rank ordering of antipsychotics that have the greatest to the least risk of metabolic effects is olanzapine, quetiapine, risperidone, ziprasidone, and aripiprazole. However, weight gain can occur with all of these drugs and considerable variability exists among patients receiving the same drug regarding the risk of metabolic effects. Anti-psychotic agents not only increase the risk of metabolic disorder, they also increase the risk of CVA, akathisia, and movement disorders including EPS or tardive dyskinesia (more common with first generation antipsychotics) and more. Medication Management and Follow-Up - Plan: - Schedule follow-up appointments every 1-3 months to monitor the patient's response to the medication regimen. - Reinforce the importance of avoiding recreational drug use due to potential neurotoxicity and interactions with prescribed medications. 05/18/2024 Major depressive disorder, recurrent, moderate (ICD-10 - F33.1) Preventing Depression From Coming Back: Care Instructions material was published, Seasonal Affective Disorder: Care Instructions material was published, Depression Treatment: Care Instructions material was published, Learning About Depression Screening material was published, Learning About Depression material was published, Preventing Depression From Coming Back: Care Instructions material was published 1. recurrent major depression -educated on UDS and policy and patient agreed, [place] Prescription program reviewed cymbalta 60 mg twice a daily educated on all medications, benefits, side effects and risk, and educated on depression, anxiety, and ADHD, mood d/o and educated on compliance of medications, metabolic and movement d/o education appointment's, continue therapy discussion with patient about course of treatmentand patient instructions. education on serotonin syndrome obtain labs top spotter educated patient KIT-2 test ADHD PCP prescribes at this time and may need top spotter clearance before rx will be prescribed related to cardiac issues- need to schedule- seen yearly 2. Generalized anxiety disorder - cymbalta 60 mg daily Lorazepam 1 mg at bedtime PRN - do not take Ambien no early refill on control substance and pharmacy in [place] and 30 days at a time UDS each vist and random no cannabis use with control substance or other drugs and/or ETOH 3. Chronic post-traumatic stress disorder -refer to therapy 4. ADHD combination -educated patient kit-2 test reviewed Self Report and KIT-AE2 congruent Adderall XR 30 MG DAILY and to take daily in am top spotter apptointment schedule ADHD rx approved had test completed no early refill on control substance [place] pharmacy only limit caffine monitor B/P ADHD stimulates education Discuss with patient risk of misuse, abuse, and addiction before prescribing stimulant medicines. [facility] Of Rehabilitation Services patients not to share their prescribed stimulant with anyone else. Educate patients and their families on these serious risks, proper storage of the medicine, and proper disposal of any unused medicine. Educated patient will monitor Throughout treatment, regularly assess and monitor them for signs and symptoms of nonmedical use, addiction, and potential diversion, which may be evidenced by more frequent renewal. requests than warranted by the prescribed dosage. Random UDS [place] prescription reviewed local pharmacy in [facility], no early refills on control substance educated on non-stimulate and stimulates may need top spotter clearance for ADHD rx scheduled 05/24/24 see PCP and top spotter with elevated BP educated on high BP and ADHD rx- on B/P rx and see PCP and top spotter scheduled 05/24/24 : Attention and concentration deficit 5. Long-term drug therapy -educated on UDS and policy and patient agreed,educated about cannabis and how may effects medications and mood and behaviors, UDS Ambien Complex Sleep Behaviors complex sleep behaviors may occur, incl. sleep-walking, sleep-driving, and engaging in other activities while not fully awake; may result in serious injuries, incl. ; D/C immediately if pt experiences a complex sleep behavior Discussed and educated pt regarding benzodiazepines are generally not intended for prolonged use and that use can cause tolerance, dependence, depression, and associated memory issues including dementias (this list is not exhaustive). Benzodiazepine use is generally not recommended concurrently with pain medications and/or other controlled substances due to increased risks of profound sedation, respiratory depression, coma, and even . They are not to be used with any alcohol, as this combination can also be lethal. Patient was provided caution http_s://www.nim .nih.gov/health/t opics/mental-heal th-medications http_s://www.[facility] .org/About-Mental -Illness/Treatmen ts/Mental-Health- Medications Recommend decrease/stop cannabis use as it may be negatively impacting mood, motivation, anxiety, sleep, focus; can also contribute to development of psychosis Patient educated on all medications including potential benefits, side effects, risks. Educated on proper dosing schedule and importance of compliance Discussed and educated pt regarding benzodiazepines are generally not intended for prolonged use and that use can cause tolerance, dependence, depression, and associated memory issues including dementias (this list is not exhaustive). Benzodiazepine use is generally not recommended concurrently with pain medications and/or other controlled substances due to educated on all medications, benefits, side effects and risk, and educated on depression, anxiety, and ADHD, mood d/o and educated on compliance of medications, metabolic and movement d/o education appointment is, continue therapy discussion with patient about course of treatment and patient instructions. education on serotonin syndrome SSRI/SNRI side effects discussed including but not limited to, gastric upset, nausea, vomiting, diarrhea and/or constipation, weight changes, sexual side effects including loss of libido, increased suicidal thoughts/behavior s in children and young adults, and serotonin syndrome. Second generation antipsychotics (SGAs) have metabolic syndrome issues with weight gain, increase in prolactin, increased waist circumference, increased lipids, and increased glucose. Thus routine monitoring of weight, metabolic labs, etc. is indicated. A general rank ordering of antipsychotics that have the greatest to the least risk of metabolic effects is olanzapine, quetiapine, risperidone, ziprasidone, and aripiprazole. However, weight gain can occur with all of these drugs and considerable variability exists among patients receiving the same drug regarding the risk of metabolic effects. Anti-psychotic agents not only increase the risk of metabolic disorder, they also increase the risk of CVA, akathisia, and movement disorders including EPS or tardive dyskinesia (more common with first generation antipsychotics) and more. Medication Management and Follow-Up - Plan: - Schedule follow-up appointments every 1-3 months to monitor the patient's response to the medication regimen. - Reinforce the importance of avoiding recreational drug use due to potential neurotoxicity and interactions with prescribed medications. 11/15/2024 Generalized anxiety disorder (ICD-10 - F41.1) Learning About Generalized Anxiety Disorder material was published, Generalized Anxiety Disorder: Care Instructions material was published, Learning About Anxiety Disorders material was published, Generalized Anxiety Disorder: Care Instructions material was published, Learning About Generalized Anxiety Disorder material was published, Learning About Anxiety Disorders material was published 1. major depression - educated on UDS and policy and patient agreed, [place] Prescription program reviewed Continue cymbalta 60 mg daily educated on all medications, benefits, side effects and risk, and educated on depression, anxiety, and ADHD, mood d/o and educated on compliance of medications, metabolic and movement d/o education appointment's, continue therapy discussion with patient about course of treatmentand patient instructions. education on serotonin syndrome labs top spotter/PCP SEE PCP and labs scheduled educated patient KIT-2 test top spotter clearance before rx will be prescribed related to cardiac issues- - seen yearly 2. Generalized anxiety disorder - cymbalta 60 mg daily Lorazepam 1 mg at bedtime PRN - no refill needed today no early refill on control substance and pharmacy in [place] and 30 days at a time UDS each vist and random no cannabis use with control substance or other drugs and/or ETOH 3. Chronic post-traumatic stress disorder -refer to therapy 4. ADHD combination -educated patient kit-2 test reviewed Self Report and KIT-AE2 congruent Adderall XR 30 MG DAILY and to take daily in am- no refill needed today top spotter ADHD rx approved no early refill on control substance [place] pharmacy only limit caffine monitor B/P ADHD stimulates education Discuss with patient risk of misuse, abuse, and addiction before prescribing stimulant medicines. [facility] Of Rehabilitation Services patients not to share their prescribed stimulant with anyone else. Educate patients and their families on these serious risks, proper storage of the medicine, and proper disposal of any unused medicine. Educated patient will monitor Throughout treatment, regularly assess and monitor them for signs and symptoms of nonmedical use, addiction, and potential diversion, which may be evidenced by more frequent renewal. requests than warranted by the prescribed dosage. Random UDS [place] prescription reviewed local pharmacy in [place], no early refills on control substance educated on non-stimulate and stimulates top spotter clearance for ADHD see PCP and top spotter BP educated on high BP and ADHD rx- on B/P rx and see PCP and top spotter scheduled 05/24/24 : Attention and concentration deficit 5. Long-term drug therapy -educated on UDS and policy and patient agreed,educated about cannabis and how may effects medications and mood and behaviors, UDS Ambien Complex Sleep Behaviors complex sleep behaviors may occur, incl. sleep-walking, sleep-driving, and engaging in other activities while not fully awake; may result in serious injuries, incl. ; D/C immediately if pt experiences a complex sleep behavior Discussed and educated pt regarding benzodiazepines are generally not intended for prolonged use and that use can cause tolerance, dependence, depression, and associated memory issues including dementias (this list is not exhaustive). Benzodiazepine use is generally not recommended concurrently with pain medications and/or other controlled substances due to increased risks of profound sedation, respiratory depression, coma, and even . They are not to be used with any alcohol, as this combination can also be lethal. Patient was provided caution http_s://www.nimh .nih.gov/health/t opics/mental-heal th-medications http_s://www.[facility] .org/About-Mental -Illness/Treatmen ts/Mental-Health- Medications Recommend decrease/stop cannabis use as it may be negatively impacting mood, motivation, anxiety, sleep, focus; can also contribute to development of psychosis Patient educated on all medications including potential benefits, side effects, risks. Educated on proper dosing schedule and importance of compliance Discussed and educated pt regarding benzodiazepines are generally not intended for prolonged use and that use can cause tolerance, dependence, depression, and associated memory issues including dementias (this list is not exhaustive). Benzodiazepine use is generally not recommended concurrently with pain medications and/or other controlled substances due to educated on all medications, benefits, side effects and risk, and educated on depression, anxiety, and ADHD, mood d/o and educated on compliance of medications, metabolic and movement d/o education appointment is, continue therapy discussion with patient about course of treatment and patient instructions. education on serotonin syndrome SSRI/SNRI side effects discussed including but not limited to, gastric upset, nausea, vomiting, diarrhea and/or constipation, weight changes, sexual side effects including loss of libido, increased suicidal thoughts/behavior s in children and young adults, and serotonin syndrome. Second generation antipsychotics (SGAs) have metabolic syndrome issues with weight gain, increase in prolactin, increased waist circumference, increased lipids, and increased glucose. Thus routine monitoring of weight, metabolic labs, etc. is indicated. A general rank ordering of antipsychotics that have the greatest to the least risk of metabolic effects is olanzapine, quetiapine, risperidone, ziprasidone, and aripiprazole. However, weight gain can occur with all of these drugs and considerable variability exists among patients receiving the same drug regarding the risk of metabolic effects. Anti-psychotic agents not only increase the risk of metabolic disorder, they also increase the risk of CVA, akathisia, and movement disorders including EPS or tardive dyskinesia (more common with first generation antipsychotics) and more. Medication Management and Follow-Up - Plan: - Schedule follow-up appointments every 1-3 months to monitor the patient's response to the medication regimen. - Reinforce the importance of avoiding recreational drug use due to potential neurotoxicity and interactions with prescribed medications. 11/01/2024 Generalized anxiety disorder (ICD-10 - F41.1) 07/23/2024 Other specified attention deficit hyperactivity disorder (ADHD) (ICD9-CM - 314.01) 05/18/2024 Post-traumatic stress disorder, chronic (ICD-10 - F43.12) Post-Traumatic Stress Disorder (PTSD): Care Instructions material was published, Post-Traumatic Stress Disorder (PTSD): Care Instructions material was published 1. recurrent major depression -educated on UDS and policy and patient agreed, [place] Prescription program reviewed cymbalta 60 mg twice a daily educated on all medications, benefits, side effects and risk, and educated on depression, anxiety, and ADHD, mood d/o and educated on compliance of medications, metabolic and movement d/o education appointment's, continue therapy discussion with patient about course of treatmentand patient instructions. education on serotonin syndrome obtain labs top spotter educated patient KIT-2 test ADHD PCP prescribes at this time and may need top spotter clearance before rx will be prescribed related to cardiac issues- need to schedule- seen yearly 2. Generalized anxiety disorder - cymbalta 60 mg daily Lorazepam 1 mg at bedtime PRN - do not take Ambien no early refill on control substance and pharmacy in [place] and 30 days at a time UDS each vist and random no cannabis use with control substance or other drugs and/or ETOH 3. Chronic post-traumatic stress disorder -refer to therapy 4. ADHD combination -educated patient kit-2 test reviewed Self Report and KIT-AE2 congruent Adderall XR 30 MG DAILY and to take daily in am top spotter apptointment schedule ADHD rx approved had test completed no early refill on control substance [place] pharmacy only limit caffine monitor B/P ADHD stimulates education Discuss with patient risk of misuse, abuse, and addiction before prescribing stimulant medicines. [facility] patients not to share their prescribed stimulant with anyone else. Educate patients and their families on these serious risks, proper storage of the medicine, and proper disposal of any unused medicine. Educated patient will monitor Throughout treatment, regularly assess and monitor them for signs and symptoms of nonmedical use, addiction, and potential diversion, which may be evidenced by more frequent renewal. requests than warranted by the prescribed dosage. Random UDS [place] prescription reviewed local pharmacy in [facility], no early refills on control substance educated on non-stimulate and stimulates may need top spotter clearance for ADHD rx scheduled 05/24/24 see PCP and top spotter with elevated BP educated on high BP and ADHD rx- on B/P rx and see PCP and top spotter scheduled 05/24/24 : Attention and concentration deficit 5. Long-term drug therapy -educated on UDS and policy and patient agreed,educated about cannabis and how may effects medications and mood and behaviors, UDS Ambien Complex Sleep Behaviors complex sleep behaviors may occur, incl. sleep-walking, sleep-driving, and engaging in other activities while not fully awake; may result in serious injuries, incl. ; D/C immediately if pt experiences a complex sleep behavior Discussed and educated pt regarding benzodiazepines are generally not intended for prolonged use and that use can cause tolerance, dependence, depression, and associated memory issues including dementias (this list is not exhaustive). Benzodiazepine use is generally not recommended concurrently with pain medications and/or other controlled substances due to increased risks of profound sedation, respiratory depression, coma, and even . They are not to be used with any alcohol, as this combination can also be lethal. Patient was provided caution http_s://www.nimh .nih.gov/health/t opics/mental-heal th-medications http_s://www.[facility] .org/About-Mental -Illness/Treatmen ts/Mental-Health- Medications Recommend decrease/stop cannabis use as it may be negatively impacting mood, motivation, anxiety, sleep, focus; can also contribute to development of psychosis Patient educated on all medications including potential benefits, side effects, risks. Educated on proper dosing schedule and importance of compliance Discussed and educated pt regarding benzodiazepines are generally not intended for prolonged use and that use can cause tolerance, dependence, depression, and associated memory issues including dementias (this list is not exhaustive). Benzodiazepine use is generally not recommended concurrently with pain medications and/or other controlled substances due to educated on all medications, benefits, side effects and risk, and educated on depression, anxiety, and ADHD, mood d/o and educated on compliance of medications, metabolic and movement d/o education appointment is, continue therapy discussion with patient about course of treatment and patient instructions. education on serotonin syndrome SSRI/SNRI side effects discussed including but not limited to, gastric upset, nausea, vomiting, diarrhea and/or constipation, weight changes, sexual side effects including loss of libido, increased suicidal thoughts/behavior s in children and young adults, and serotonin syndrome. Second generation antipsychotics (SGAs) have metabolic syndrome issues with weight gain, increase in prolactin, increased waist circumference, increased lipids, and increased glucose. Thus routine monitoring of weight, metabolic labs, etc. is indicated. A general rank ordering of antipsychotics that have the greatest to the least risk of metabolic effects is olanzapine, quetiapine, risperidone, ziprasidone, and aripiprazole. However, weight gain can occur with all of these drugs and considerable variability exists among patients receiving the same drug regarding the risk of metabolic effects. Anti-psychotic agents not only increase the risk of metabolic disorder, they also increase the risk of CVA, akathisia, and movement disorders including EPS or tardive dyskinesia (more common with first generation antipsychotics) and more. Medication Management and Follow-Up - Plan: - Schedule follow-up appointments every 1-3 months to monitor the patient's response to the medication regimen. - Reinforce the importance of avoiding recreational drug use due to potential neurotoxicity and interactions with prescribed medications. 05/18/2024 Attention and concentration deficit (ICD-10 - R41.840) 1. recurrent major depression -educated on UDS and policy and patient agreed, [place] Prescription program reviewed cymbalta 60 mg twice a daily educated on all medications, benefits, side effects and risk, and educated on depression, anxiety, and ADHD, mood d/o and educated on compliance of medications, metabolic and movement d/o education appointment's, continue therapy discussion with patient about course of treatmentand patient instructions. education on serotonin syndrome obtain labs top spotter educated patient KIT-2 test ADHD PCP prescribes at this time and may need top spotter clearance before rx will be prescribed related to cardiac issues- need to schedule- seen yearly 2. Generalized anxiety disorder - cymbalta 60 mg daily Lorazepam 1 mg at bedtime PRN - do not take Ambien no early refill on control substance and pharmacy in [place] and 30 days at a time UDS each vist and random no cannabis use with control substance or other drugs and/or ETOH 3. Chronic post-traumatic stress disorder -refer to therapy 4. ADHD combination -educated patient kit-2 test reviewed Self Report and KIT-AE2 congruent Adderall XR 30 MG DAILY and to take daily in am top spotter apptointment schedule ADHD rx approved had test completed no early refill on control substance [place] pharmacy only limit caffine monitor B/P ADHD stimulates education Discuss with patient risk of misuse, abuse, and addiction before prescribing stimulant medicines. [facility] patients not to share their prescribed stimulant with anyone else. Educate patients and their families on these serious risks, proper storage of the medicine, and proper disposal of any unused medicine. Educated patient will monitor Throughout treatment, regularly assess and monitor them for signs and symptoms of nonmedical use, addiction, and potential diversion, which may be evidenced by more frequent renewal. requests than warranted by the prescribed dosage. Random UDS [place] prescription reviewed local pharmacy in [facility], no early refills on control substance educated on non-stimulate and stimulates may need top spotter clearance for ADHD rx scheduled 05/24/24 see PCP and top spotter with elevated BP educated on high BP and ADHD rx- on B/P rx and see PCP and top spotter scheduled 05/24/24 : Attention and concentration deficit 5. Long-term drug therapy -educated on UDS and policy and patient agreed,educated about cannabis and how may effects medications and mood and behaviors, UDS Ambien Complex Sleep Behaviors complex sleep behaviors may occur, incl. sleep-walking, sleep-driving, and engaging in other activities while not fully awake; may result in serious injuries, incl. ; D/C immediately if pt experiences a complex sleep behavior Discussed and educated pt regarding benzodiazepines are generally not intended for prolonged use and that use can cause tolerance, dependence, depression, and associated memory issues including dementias (this list is not exhaustive). Benzodiazepine use is generally not recommended concurrently with pain medications and/or other controlled substances due to increased risks of profound sedation, respiratory depression, coma, and even . They are not to be used with any alcohol, as this combination can also be lethal. Patient was provided caution http_s://www.nim .nih.gov/health/t opics/mental-heal th-medications http_s://www.[facility] .org/About-Mental -Illness/Treatmen ts/Mental-Health- Medications Recommend decrease/stop cannabis use as it may be negatively impacting mood, motivation, anxiety, sleep, focus; can also contribute to development of psychosis Patient educated on all medications including potential benefits, side effects, risks. Educated on proper dosing schedule and importance of compliance Discussed and educated pt regarding benzodiazepines are generally not intended for prolonged use and that use can cause tolerance, dependence, depression, and associated memory issues including dementias (this list is not exhaustive). Benzodiazepine use is generally not recommended concurrently with pain medications and/or other controlled substances due to educated on all medications, benefits, side effects and risk, and educated on depression, anxiety, and ADHD, mood d/o and educated on compliance of medications, metabolic and movement d/o education appointment is, continue therapy discussion with patient about course of treatment and patient instructions. education on serotonin syndrome SSRI/SNRI side effects discussed including but not limited to, gastric upset, nausea, vomiting, diarrhea and/or constipation, weight changes, sexual side effects including loss of libido, increased suicidal thoughts/behavior s in children and young adults, and serotonin syndrome. Second generation antipsychotics (SGAs) have metabolic syndrome issues with weight gain, increase in prolactin, increased waist circumference, increased lipids, and increased glucose. Thus routine monitoring of weight, metabolic labs, etc. is indicated. A general rank ordering of antipsychotics that have the greatest to the least risk of metabolic effects is olanzapine, quetiapine, risperidone, ziprasidone, and aripiprazole. However, weight gain can occur with all of these drugs and considerable variability exists among patients receiving the same drug regarding the risk of metabolic effects. Anti-psychotic agents not only increase the risk of metabolic disorder, they also increase the risk of CVA, akathisia, and movement disorders including EPS or tardive dyskinesia (more common with first generation antipsychotics) and more. Medication Management and Follow-Up - Plan: - Schedule follow-up appointments every 1-3 months to monitor the patient's response to the medication regimen. - Reinforce the importance of avoiding recreational drug use due to potential neurotoxicity and interactions with prescribed medications. 11/15/2024 Post-traumatic stress disorder, chronic (ICD-10 - F43.12) Post-Traumatic Stress Disorder (PTSD): Care Instructions material was published, Post-Traumatic Stress Disorder (PTSD): Care Instructions material was published 1. major depression - educated on UDS and policy and patient agreed, [place] Prescription program reviewed Continue cymbalta 60 mg daily educated on all medications, benefits, side effects and risk, and educated on depression, anxiety, and ADHD, mood d/o and educated on compliance of medications, metabolic and movement d/o education appointment's, continue therapy discussion with patient about course of treatmentand patient instructions. education on serotonin syndrome labs top spotter/PCP SEE PCP and labs scheduled educated patient KIT-2 test top spotter clearance before rx will be prescribed related to cardiac issues- - seen yearly 2. Generalized anxiety disorder - cymbalta 60 mg daily Lorazepam 1 mg at bedtime PRN - no refill needed today no early refill on control substance and pharmacy in [place] and 30 days at a time UDS each vist and random no cannabis use with control substance or other drugs and/or ETOH 3. Chronic post-traumatic stress disorder -refer to therapy 4. ADHD combination -educated patient kit-2 test reviewed Self Report and KIT-AE2 congruent Adderall XR 30 MG DAILY and to take daily in am- no refill needed today top spotter ADHD rx approved no early refill on control substance [place] pharmacy only limit caffine monitor B/P ADHD stimulates education Discuss with patient risk of misuse, abuse, and addiction before prescribing stimulant medicines. [facility] patients not to share their prescribed stimulant with anyone else. Educate patients and their families on these serious risks, proper storage of the medicine, and proper disposal of any unused medicine. Educated patient will monitor Throughout treatment, regularly assess and monitor them for signs and symptoms of nonmedical use, addiction, and potential diversion, which may be evidenced by more frequent renewal. requests than warranted by the prescribed dosage. Random UDS [place] prescription reviewed local pharmacy in [facility], no early refills on control substance educated on non-stimulate and stimulates top spotter clearance for ADHD see PCP and top spotter BP educated on high BP and ADHD rx- on B/P rx and see PCP and top spotter scheduled 05/24/24 : Attention and concentration deficit 5. Long-term drug therapy -educated on UDS and policy and patient agreed,educated about cannabis and how may effects medications and mood and behaviors, UDS Ambien Complex Sleep Behaviors complex sleep behaviors may occur, incl. sleep-walking, sleep-driving, and engaging in other activities while not fully awake; may result in serious injuries, incl. ; D/C immediately if pt experiences a complex sleep behavior Discussed and educated pt regarding benzodiazepines are generally not intended for prolonged use and that use can cause tolerance, dependence, depression, and associated memory issues including dementias (this list is not exhaustive). Benzodiazepine use is generally not recommended concurrently with pain medications and/or other controlled substances due to increased risks of profound sedation, respiratory depression, coma, and even . They are not to be used with any alcohol, as this combination can also be lethal. Patient was provided caution http_s://www.nimh .nih.gov/health/t opics/mental-heal th-medications http_s://www.[facility] .org/About-Mental -Illness/Treatmen ts/Mental-Health- Medications Recommend decrease/stop cannabis use as it may be negatively impacting mood, motivation, anxiety, sleep, focus; can also contribute to development of psychosis Patient educated on all medications including potential benefits, side effects, risks. Educated on proper dosing schedule and importance of compliance Discussed and educated pt regarding benzodiazepines are generally not intended for prolonged use and that use can cause tolerance, dependence, depression, and associated memory issues including dementias (this list is not exhaustive). Benzodiazepine use is generally not recommended concurrently with pain medications and/or other controlled substances due to educated on all medications, benefits, side effects and risk, and educated on depression, anxiety, and ADHD, mood d/o and educated on compliance of medications, metabolic and movement d/o education appointment is, continue therapy discussion with patient about course of treatment and patient instructions. education on serotonin syndrome SSRI/SNRI side effects discussed including but not limited to, gastric upset, nausea, vomiting, diarrhea and/or constipation, weight changes, sexual side effects including loss of libido, increased suicidal thoughts/behavior s in children and young adults, and serotonin syndrome. Second generation antipsychotics (SGAs) have metabolic syndrome issues with weight gain, increase in prolactin, increased waist circumference, increased lipids, and increased glucose. Thus routine monitoring of weight, metabolic labs, etc. is indicated. A general rank ordering of antipsychotics that have the greatest to the least risk of metabolic effects is olanzapine, quetiapine, risperidone, ziprasidone, and aripiprazole. However, weight gain can occur with all of these drugs and considerable variability exists among patients receiving the same drug regarding the risk of metabolic effects. Anti-psychotic agents not only increase the risk of metabolic disorder, they also increase the risk of CVA, akathisia, and movement disorders including EPS or tardive dyskinesia (more common with first generation antipsychotics) and more. Medication Management and Follow-Up - Plan: - Schedule follow-up appointments every 1-3 months to monitor the patient's response to the medication regimen. - Reinforce the importance of avoiding recreational drug use due to potential neurotoxicity and interactions with prescribed medications. 03/08/2025 Post-traumatic stress disorder, chronic (ICD-10 - F43.12) Post-Traumatic Stress Disorder (PTSD): Care Instructions material was published, Post-Traumatic Stress Disorder (PTSD): Care Instructions material was published 1. major depression - educated on UDS and policy and patient agreed, [place] Prescription program reviewed Continue cymbalta 60 mg daily educated on all medications, benefits, side effects and risk, and educated on depression, anxiety, and ADHD, mood d/o and educated on compliance of medications, metabolic and movement d/o education appointment's, continue therapy discussion with patient about course of treatmentand patient instructions. education on serotonin syndrome labs top spotter/PCP SEE PCP and labs scheduled educated patient KIT-2 test top spotter clearance before rx will be prescribed related to cardiac issues- - seen yearly 2. Generalized anxiety disorder - cymbalta 60 mg daily Lorazepam 1 mg at bedtime PRN - no refill needed today no early refill on control substance and pharmacy in [place] and 30 days at a time UDS each vist and random no cannabis use with control substance or other drugs and/or ETOH 3. Chronic post-traumatic stress disorder -refer to therapy 4. ADHD combination -educated patient kit-2 test reviewed Self Report and KIT-AE2 congruent Adderall XR 30 MG DAILY and to take daily in am- no refill needed today top spotter ADHD rx approved no early refill on control substance [place] pharmacy only limit caffine monitor B/P ADHD stimulates education Discuss with patient risk of misuse, abuse, and addiction before prescribing stimulant medicines. [facility] patients not to share their prescribed stimulant with anyone else. Educate patients and their families on these serious risks, proper storage of the medicine, and proper disposal of any unused medicine. Educated patient will monitor Throughout treatment, regularly assess and monitor them for signs and symptoms of nonmedical use, addiction, and potential diversion, which may be evidenced by more frequent renewal. requests than warranted by the prescribed dosage. Random UDS [place] prescription reviewed local pharmacy in [facility], no early refills on control substance educated on non-stimulate and stimulates top spotter clearance for ADHD recieved 11/05 and see every 6 months see PCP and top spotter BP educated on high BP and ADHD rx- on B/P rx and seen PCP and top spotter seen 11/05 Attention and concentration deficit 5. Long-term drug therapy -educated on UDS and policy and patient agreed,educated about cannabis and how may effects medications and mood and behaviors, UDS Ambien Complex Sleep Behaviors complex sleep behaviors may occur, incl. sleep-walking, sleep-driving, and engaging in other activities while not fully awake; may result in serious injuries, incl. ; D/C immediately if pt experiences a complex sleep behavior Discussed and educated pt regarding benzodiazepines are generally not intended for prolonged use and that use can cause tolerance, dependence, depression, and associated memory issues including dementias (this list is not exhaustive). Benzodiazepine use is generally not recommended concurrently with pain medications and/or other controlled substances due to increased risks of profound sedation, respiratory depression, coma, and even . They are not to be used with any alcohol, as this combination can also be lethal. Patient was provided caution http_s://www.nimh .nih.gov/health/t opics/mental-heal th-medications http_s://www.[facility] .org/About-Mental -Illness/Treatmen ts/Mental-Health- Medications Recommend decrease/stop cannabis use as it may be negatively impacting mood, motivation, anxiety, sleep, focus; can also contribute to development of psychosis Patient educated on all medications including potential benefits, side effects, risks. Educated on proper dosing schedule and importance of compliance Discussed and educated pt regarding benzodiazepines are generally not intended for prolonged use and that use can cause tolerance, dependence, depression, and associated memory issues including dementias (this list is not exhaustive). Benzodiazepine use is generally not recommended concurrently with pain medications and/or other controlled substances due to educated on all medications, benefits, side effects and risk, and educated on depression, anxiety, and ADHD, mood d/o and educated on compliance of medications, metabolic and movement d/o education appointment is, continue therapy discussion with patient about course of treatment and patient instructions. education on serotonin syndrome SSRI/SNRI side effects discussed including but not limited to, gastric upset, nausea, vomiting, diarrhea and/or constipation, weight changes, sexual side effects including loss of libido, increased suicidal thoughts/behavior s in children and young adults, and serotonin syndrome. Second generation antipsychotics (SGAs) have metabolic syndrome issues with weight gain, increase in prolactin, increased waist circumference, increased lipids, and increased glucose. Thus routine monitoring of weight, metabolic labs, etc. is indicated. A general rank ordering of antipsychotics that have the greatest to the least risk of metabolic effects is olanzapine, quetiapine, risperidone, ziprasidone, and aripiprazole. However, weight gain can occur with all of these drugs and considerable variability exists among patients receiving the same drug regarding the risk of metabolic effects. Anti-psychotic agents not only increase the risk of metabolic disorder, they also increase the risk of CVA, akathisia, and movement disorders including EPS or tardive dyskinesia (more common with first generation antipsychotics) and more. Medication Management and Follow-Up - Plan: - Schedule follow-up appointments every 1-3 months to monitor the patient's response to the medication regimen. - Reinforce the importance of avoiding recreational drug use due to potential neurotoxicity and interactions with prescribed medications. 08/19/2024 Post-traumatic stress disorder, chronic (ICD-10 - F43.12) Post-Traumatic Stress Disorder (PTSD): Care Instructions material was published, Post-Traumatic Stress Disorder (PTSD): Care Instructions material was published 1. major depression - educated on UDS and policy and patient agreed, [place] Prescription program reviewed Continue cymbalta 60 mg daily educated on all medications, benefits, side effects and risk, and educated on depression, anxiety, and ADHD, mood d/o and educated on compliance of medications, metabolic and movement d/o education appointment's, continue therapy discussion with patient about course of treatmentand patient instructions. education on serotonin syndrome labs top spotter/PCP SCHEDULE TO SEE PCP and labs 11/05 educated patient KIT-2 test top spotter clearance before rx will be prescribed related to cardiac issues- - seen yearly 2. Generalized anxiety disorder - cymbalta 60 mg daily Lorazepam 1 mg at bedtime PRN - no refill needed today no early refill on control substance and pharmacy in [place] and 30 days at a time UDS each vist and random no cannabis use with control substance or other drugs and/or ETOH 3. Chronic post-traumatic stress disorder -refer to therapy 4. ADHD combination -educated patient kit-2 test reviewed Self Report and KIT-AE2 congruent Adderall XR 30 MG DAILY and to take daily in am- refill due 08/19/24 top spotter apptointment schedule ADHD rx approved had test completed no early refill on control substance [place] pharmacy only limit caffine monitor B/P ADHD stimulates education Discuss with patient risk of misuse, abuse, and addiction before prescribing stimulant medicines. [facility] patients not to share their prescribed stimulant with anyone else. Educate patients and their families on these serious risks, proper storage of the medicine, and proper disposal of any unused medicine. Educated patient will monitor Throughout treatment, regularly assess and monitor them for signs and symptoms of nonmedical use, addiction, and potential diversion, which may be evidenced by more frequent renewal. requests than warranted by the prescribed dosage. Random UDS [place] prescription reviewed local pharmacy in [facility], no early refills on control substance educated on non-stimulate and stimulates top spotter clearance for ADHD see PCP and top spotter BP educated on high BP and ADHD rx- on B/P rx and see PCP and top spotter scheduled 05/24/24 : Attention and concentration deficit 5. Long-term drug therapy -educated on UDS and policy and patient agreed,educated about cannabis and how may effects medications and mood and behaviors, UDS Ambien Complex Sleep Behaviors complex sleep behaviors may occur, incl. sleep-walking, sleep-driving, and engaging in other activities while not fully awake; may result in serious injuries, incl. ; D/C immediately if pt experiences a complex sleep behavior Discussed and educated pt regarding benzodiazepines are generally not intended for prolonged use and that use can cause tolerance, dependence, depression, and associated memory issues including dementias (this list is not exhaustive). Benzodiazepine use is generally not recommended concurrently with pain medications and/or other controlled substances due to increased risks of profound sedation, respiratory depression, coma, and even . They are not to be used with any alcohol, as this combination can also be lethal. Patient was provided caution http_s://www.nimh .nih.gov/health/t opics/mental-heal th-medications http_s://www.[facility] .org/About-Mental -Illness/Treatmen ts/Mental-Health- Medications Recommend decrease/stop cannabis use as it may be negatively impacting mood, motivation, anxiety, sleep, focus; can also contribute to development of psychosis Patient educated on all medications including potential benefits, side effects, risks. Educated on proper dosing schedule and importance of compliance Discussed and educated pt regarding benzodiazepines are generally not intended for prolonged use and that use can cause tolerance, dependence, depression, and associated memory issues including dementias (this list is not exhaustive). Benzodiazepine use is generally not recommended concurrently with pain medications and/or other controlled substances due to educated on all medications, benefits, side effects and risk, and educated on depression, anxiety, and ADHD, mood d/o and educated on compliance of medications, metabolic and movement d/o education appointment is, continue therapy discussion with patient about course of treatment and patient instructions. education on serotonin syndrome SSRI/SNRI side effects discussed including but not limited to, gastric upset, nausea, vomiting, diarrhea and/or constipation, weight changes, sexual side effects including loss of libido, increased suicidal thoughts/behavior s in children and young adults, and serotonin syndrome. Second generation antipsychotics (SGAs) have metabolic syndrome issues with weight gain, increase in prolactin, increased waist circumference, increased lipids, and increased glucose. Thus routine monitoring of weight, metabolic labs, etc. is indicated. A general rank ordering of antipsychotics that have the greatest to the least risk of metabolic effects is olanzapine, quetiapine, risperidone, ziprasidone, and aripiprazole. However, weight gain can occur with all of these drugs and considerable variability exists among patients receiving the same drug regarding the risk of metabolic effects. Anti-psychotic agents not only increase the risk of metabolic disorder, they also increase the risk of CVA, akathisia, and movement disorders including EPS or tardive dyskinesia (more common with first generation antipsychotics) and more. Medication Management and Follow-Up - Plan: - Schedule follow-up appointments every 1-3 months to monitor the patient's response to the medication regimen. - Reinforce the importance of avoiding recreational drug use due to potential neurotoxicity and interactions with prescribed medications. 08/19/2024 Attention and concentration deficit (ICD-10 - R41.840) 1. major depression - educated on UDS and policy and patient agreed, [place] Prescription program reviewed Continue cymbalta 60 mg daily educated on all medications, benefits, side effects and risk, and educated on depression, anxiety, and ADHD, mood d/o and educated on compliance of medications, metabolic and movement d/o education appointment's, continue therapy discussion with patient about course of treatmentand patient instructions. education on serotonin syndrome labs top spotter/PCP SCHEDULE TO SEE PCP and labs 11/05 educated patient KIT-2 test top spotter clearance before rx will be prescribed related to cardiac issues- - seen yearly 2. Generalized anxiety disorder - cymbalta 60 mg daily Lorazepam 1 mg at bedtime PRN - no refill needed today no early refill on control substance and pharmacy in [place] and 30 days at a time UDS each vist and random no cannabis use with control substance or other drugs and/or ETOH 3. Chronic post-traumatic stress disorder -refer to therapy 4. ADHD combination -educated patient kit-2 test reviewed Self Report and KIT-AE2 congruent Adderall XR 30 MG DAILY and to take daily in am- refill due 08/19/24 top spotter apptointment schedule ADHD rx approved had test completed no early refill on control substance [place] pharmacy only limit caffine monitor B/P ADHD stimulates education Discuss with patient risk of misuse, abuse, and addiction before prescribing stimulant medicines. [facility] patients not to share their prescribed stimulant with anyone else. Educate patients and their families on these serious risks, proper storage of the medicine, and proper disposal of any unused medicine. Educated patient will monitor Throughout treatment, regularly assess and monitor them for signs and symptoms of nonmedical use, addiction, and potential diversion, which may be evidenced by more frequent renewal. requests than warranted by the prescribed dosage. Random UDS [place] prescription reviewed local pharmacy in [place], no early refills on control substance educated on non-stimulate and stimulates top spotter clearance for ADHD see PCP and top spotter BP educated on high BP and ADHD rx- on B/P rx and see PCP and top spotter scheduled 05/24/24 : Attention and concentration deficit 5. Long-term drug therapy -educated on UDS and policy and patient agreed,educated about cannabis and how may effects medications and mood and behaviors, UDS Ambien Complex Sleep Behaviors complex sleep behaviors may occur, incl. sleep-walking, sleep-driving, and engaging in other activities while not fully awake; may result in serious injuries, incl. ; D/C immediately if pt experiences a complex sleep behavior Discussed and educated pt regarding benzodiazepines are generally not intended for prolonged use and that use can cause tolerance, dependence, depression, and associated memory issues including dementias (this list is not exhaustive). Benzodiazepine use is generally not recommended concurrently with pain medications and/or other controlled substances due to increased risks of profound sedation, respiratory depression, coma, and even . They are not to be used with any alcohol, as this combination can also be lethal. Patient was provided caution http_s://www.nimh .nih.gov/health/t opics/mental-heal th-medications http_s://www.[facility] .org/About-Mental -Illness/Treatmen ts/Mental-Health- Medications Recommend decrease/stop cannabis use as it may be negatively impacting mood, motivation, anxiety, sleep, focus; can also contribute to development of psychosis Patient educated on all medications including potential benefits, side effects, risks. Educated on proper dosing schedule and importance of compliance Discussed and educated pt regarding benzodiazepines are generally not intended for prolonged use and that use can cause tolerance, dependence, depression, and associated memory issues including dementias (this list is not exhaustive). Benzodiazepine use is generally not recommended concurrently with pain medications and/or other controlled substances due to educated on all medications, benefits, side effects and risk, and educated on depression, anxiety, and ADHD, mood d/o and educated on compliance of medications, metabolic and movement d/o education appointment is, continue therapy discussion with patient about course of treatment and patient instructions. education on serotonin syndrome SSRI/SNRI side effects discussed including but not limited to, gastric upset, nausea, vomiting, diarrhea and/or constipation, weight changes, sexual side effects including loss of libido, increased suicidal thoughts/behavior s in children and young adults, and serotonin syndrome. Second generation antipsychotics (SGAs) have metabolic syndrome issues with weight gain, increase in prolactin, increased waist circumference, increased lipids, and increased glucose. Thus routine monitoring of weight, metabolic labs, etc. is indicated. A general rank ordering of antipsychotics that have the greatest to the least risk of metabolic effects is olanzapine, quetiapine, risperidone, ziprasidone, and aripiprazole. However, weight gain can occur with all of these drugs and considerable variability exists among patients receiving the same drug regarding the risk of metabolic effects. Anti-psychotic agents not only increase the risk of metabolic disorder, they also increase the risk of CVA, akathisia, and movement disorders including EPS or tardive dyskinesia (more common with first generation antipsychotics) and more. Medication Management and Follow-Up - Plan: - Schedule follow-up appointments every 1-3 months to monitor the patient's response to the medication regimen. - Reinforce the importance of avoiding recreational drug use due to potential neurotoxicity and interactions with prescribed medications. 03/08/2025 Attention and concentration deficit (ICD-10 - R41.840) 1. major depression - educated on UDS and policy and patient agreed, [place] Prescription program reviewed Continue cymbalta 60 mg daily educated on all medications, benefits, side effects and risk, and educated on depression, anxiety, and ADHD, mood d/o and educated on compliance of medications, metabolic and movement d/o education appointment's, continue therapy discussion with patient about course of treatmentand patient instructions. education on serotonin syndrome labs top spotter/PCP SEE PCP and labs scheduled educated patient KIT-2 test top spotter clearance before rx will be prescribed related to cardiac issues- - seen yearly 2. Generalized anxiety disorder - cymbalta 60 mg daily Lorazepam 1 mg at bedtime PRN - no refill needed today no early refill on control substance and pharmacy in [place] and 30 days at a time UDS each vist and random no cannabis use with control substance or other drugs and/or ETOH 3. Chronic post-traumatic stress disorder -refer to therapy 4. ADHD combination -educated patient kit-2 test reviewed Self Report and KIT-AE2 congruent Adderall XR 30 MG DAILY and to take daily in am- no refill needed today top spotter ADHD rx approved no early refill on control substance [place] pharmacy only limit caffine monitor B/P ADHD stimulates education Discuss with patient risk of misuse, abuse, and addiction before prescribing stimulant medicines. [facility] Services patients not to share their prescribed stimulant with anyone else. Educate patients and their families on these serious risks, proper storage of the medicine, and proper disposal of any unused medicine. Educated patient will monitor Throughout treatment, regularly assess and monitor them for signs and symptoms of nonmedical use, addiction, and potential diversion, which may be evidenced by more frequent renewal. requests than warranted by the prescribed dosage. Random UDS [place] prescription reviewed local pharmacy in [facility], no early refills on control substance educated on non-stimulate and stimulates top spotter clearance for ADHD recieved 11/05 and see every 6 months see PCP and top spotter BP educated on high BP and ADHD rx- on B/P rx and seen PCP and top spotter seen 11/05 Attention and concentration deficit 5. Long-term drug therapy -educated on UDS and policy and patient agreed,educated about cannabis and how may effects medications and mood and behaviors, UDS Ambien Complex Sleep Behaviors complex sleep behaviors may occur, incl. sleep-walking, sleep-driving, and engaging in other activities while not fully awake; may result in serious injuries, incl. ; D/C immediately if pt experiences a complex sleep behavior Discussed and educated pt regarding benzodiazepines are generally not intended for prolonged use and that use can cause tolerance, dependence, depression, and associated memory issues including dementias (this list is not exhaustive). Benzodiazepine use is generally not recommended concurrently with pain medications and/or other controlled substances due to increased risks of profound sedation, respiratory depression, coma, and even . They are not to be used with any alcohol, as this combination can also be lethal. Patient was provided caution http_s://www.nimh .nih.gov/health/t opics/mental-heal th-medications http_s://www.[facility] .org/About-Mental -Illness/Treatmen ts/Mental-Health- Medications Recommend decrease/stop cannabis use as it may be negatively impacting mood, motivation, anxiety, sleep, focus; can also contribute to development of psychosis Patient educated on all medications including potential benefits, side effects, risks. Educated on proper dosing schedule and importance of compliance Discussed and educated pt regarding benzodiazepines are generally not intended for prolonged use and that use can cause tolerance, dependence, depression, and associated memory issues including dementias (this list is not exhaustive). Benzodiazepine use is generally not recommended concurrently with pain medications and/or other controlled substances due to educated on all medications, benefits, side effects and risk, and educated on depression, anxiety, and ADHD, mood d/o and educated on compliance of medications, metabolic and movement d/o education appointment is, continue therapy discussion with patient about course of treatment and patient instructions. education on serotonin syndrome SSRI/SNRI side effects discussed including but not limited to, gastric upset, nausea, vomiting, diarrhea and/or constipation, weight changes, sexual side effects including loss of libido, increased suicidal thoughts/behavior s in children and young adults, and serotonin syndrome. Second generation antipsychotics (SGAs) have metabolic syndrome issues with weight gain, increase in prolactin, increased waist circumference, increased lipids, and increased glucose. Thus routine monitoring of weight, metabolic labs, etc. is indicated. A general rank ordering of antipsychotics that have the greatest to the least risk of metabolic effects is olanzapine, quetiapine, risperidone, ziprasidone, and aripiprazole. However, weight gain can occur with all of these drugs and considerable variability exists among patients receiving the same drug regarding the risk of metabolic effects. Anti-psychotic agents not only increase the risk of metabolic disorder, they also increase the risk of CVA, akathisia, and movement disorders including EPS or tardive dyskinesia (more common with first generation antipsychotics) and more. Medication Management and Follow-Up - Plan: - Schedule follow-up appointments every 1-3 months to monitor the patient's response to the medication regimen. - Reinforce the importance of avoiding recreational drug use due to potential neurotoxicity and interactions with prescribed medications. 11/15/2024 Attention and concentration deficit (ICD-10 - R41.840) 1. major depression - educated on UDS and policy and patient agreed, [place] Prescription program reviewed Continue cymbalta 60 mg daily educated on all medications, benefits, side effects and risk, and educated on depression, anxiety, and ADHD, mood d/o and educated on compliance of medications, metabolic and movement d/o education appointment's, continue therapy discussion with patient about course of treatmentand patient instructions. education on serotonin syndrome labs top spotter/PCP SEE PCP and labs scheduled educated patient KIT-2 test top spotter clearance before rx will be prescribed related to cardiac issues- - seen yearly 2. Generalized anxiety disorder - cymbalta 60 mg daily Lorazepam 1 mg at bedtime PRN - no refill needed today no early refill on control substance and pharmacy in [place] and 30 days at a time UDS each vist and random no cannabis use with control substance or other drugs and/or ETOH 3. Chronic post-traumatic stress disorder -refer to therapy 4. ADHD combination -educated patient kit-2 test reviewed Self Report and KIT-AE2 congruent Adderall XR 30 MG DAILY and to take daily in am- no refill needed today top spotter ADHD rx approved no early refill on control substance [place] pharmacy only limit caffine monitor B/P ADHD stimulates education Discuss with patient risk of misuse, abuse, and addiction before prescribing stimulant medicines. [facility] Of Rehabilitation Services patients not to share their prescribed stimulant with anyone else. Educate patients and their families on these serious risks, proper storage of the medicine, and proper disposal of any unused medicine. Educated patient will monitor Throughout treatment, regularly assess and monitor them for signs and symptoms of nonmedical use, addiction, and potential diversion, which may be evidenced by more frequent renewal. requests than warranted by the prescribed dosage. Random UDS [place] prescription reviewed local pharmacy in [facility], no early refills on control substance educated on non-stimulate and stimulates top spotter clearance for ADHD see PCP and top spotter BP educated on high BP and ADHD rx- on B/P rx and see PCP and top spotter scheduled 05/24/24 : Attention and concentration deficit 5. Long-term drug therapy -educated on UDS and policy and patient agreed,educated about cannabis and how may effects medications and mood and behaviors, UDS Ambien Complex Sleep Behaviors complex sleep behaviors may occur, incl. sleep-walking, sleep-driving, and engaging in other activities while not fully awake; may result in serious injuries, incl. ; D/C immediately if pt experiences a complex sleep behavior Discussed and educated pt regarding benzodiazepines are generally not intended for prolonged use and that use can cause tolerance, dependence, depression, and associated memory issues including dementias (this list is not exhaustive). Benzodiazepine use is generally not recommended concurrently with pain medications and/or other controlled substances due to increased risks of profound sedation, respiratory depression, coma, and even . They are not to be used with any alcohol, as this combination can also be lethal. Patient was provided caution http_s://www.nimh .nih.gov/health/t opics/mental-heal th-medications http_s://www.[facility] .org/About-Mental -Illness/Treatmen ts/Mental-Health- Medications Recommend decrease/stop cannabis use as it may be negatively impacting mood, motivation, anxiety, sleep, focus; can also contribute to development of psychosis Patient educated on all medications including potential benefits, side effects, risks. Educated on proper dosing schedule and importance of compliance Discussed and educated pt regarding benzodiazepines are generally not intended for prolonged use and that use can cause tolerance, dependence, depression, and associated memory issues including dementias (this list is not exhaustive). Benzodiazepine use is generally not recommended concurrently with pain medications and/or other controlled substances due to educated on all medications, benefits, side effects and risk, and educated on depression, anxiety, and ADHD, mood d/o and educated on compliance of medications, metabolic and movement d/o education appointment is, continue therapy discussion with patient about course of treatment and patient instructions. education on serotonin syndrome SSRI/SNRI side effects discussed including but not limited to, gastric upset, nausea, vomiting, diarrhea and/or constipation, weight changes, sexual side effects including loss of libido, increased suicidal thoughts/behavior s in children and young adults, and serotonin syndrome. Second generation antipsychotics (SGAs) have metabolic syndrome issues with weight gain, increase in prolactin, increased waist circumference, increased lipids, and increased glucose. Thus routine monitoring of weight, metabolic labs, etc. is indicated. A general rank ordering of antipsychotics that have the greatest to the least risk of metabolic effects is olanzapine, quetiapine, risperidone, ziprasidone, and aripiprazole. However, weight gain can occur with all of these drugs and considerable variability exists among patients receiving the same drug regarding the risk of metabolic effects. Anti-psychotic agents not only increase the risk of metabolic disorder, they also increase the risk of CVA, akathisia, and movement disorders including EPS or tardive dyskinesia (more common with first generation antipsychotics) and more. Medication Management and Follow-Up - Plan: - Schedule follow-up appointments every 1-3 months to monitor the patient's response to the medication regimen. - Reinforce the importance of avoiding recreational drug use due to potential neurotoxicity and interactions with prescribed medications. 05/18/2024 Other termite technician (current) drug therapy (ICD-10 - Z79.899) Medication Refill: Care Instructions material was published, Medication Refill: Care Instructions material was published 1. recurrent major depression -educated on UDS and policy and patient agreed, [place] Prescription program reviewed cymbalta 60 mg twice a daily educated on all medications, benefits, side effects and risk, and educated on depression, anxiety, and ADHD, mood d/o and educated on compliance of medications, metabolic and movement d/o education appointment's, continue therapy discussion with patient about course of treatmentand patient instructions. education on serotonin syndrome obtain labs top spotter educated patient KIT-2 test ADHD PCP prescribes at this time and may need top spotter clearance before rx will be prescribed related to cardiac issues- need to schedule- seen yearly 2. Generalized anxiety disorder - cymbalta 60 mg daily Lorazepam 1 mg at bedtime PRN - do not take Ambien no early refill on control substance and pharmacy in [place] and 30 days at a time UDS each vist and random no cannabis use with control substance or other drugs and/or ETOH 3. Chronic post-traumatic stress disorder -refer to therapy 4. ADHD combination -educated patient kit-2 test reviewed Self Report and KIT-AE2 congruent Adderall XR 30 MG DAILY and to take daily in am top spotter apptointment schedule ADHD rx approved had test completed no early refill on control substance [place] pharmacy only limit caffine monitor B/P ADHD stimulates education Discuss with patient risk of misuse, abuse, and addiction before prescribing stimulant medicines. [facility] Services patients not to share their prescribed stimulant with anyone else. Educate patients and their families on these serious risks, proper storage of the medicine, and proper disposal of any unused medicine. Educated patient will monitor Throughout treatment, regularly assess and monitor them for signs and symptoms of nonmedical use, addiction, and potential diversion, which may be evidenced by more frequent renewal. requests than warranted by the prescribed dosage. Random UDS [place] prescription reviewed local pharmacy in [facility], no early refills on control substance educated on non-stimulate and stimulates may need top spotter clearance for ADHD rx scheduled 05/24/24 see PCP and top spotter with elevated BP educated on high BP and ADHD rx- on B/P rx and see PCP and top spotter scheduled 05/24/24 : Attention and concentration deficit 5. Long-term drug therapy -educated on UDS and policy and patient agreed,educated about cannabis and how may effects medications and mood and behaviors, UDS Ambien Complex Sleep Behaviors complex sleep behaviors may occur, incl. sleep-walking, sleep-driving, and engaging in other activities while not fully awake; may result in serious injuries, incl. ; D/C immediately if pt experiences a complex sleep behavior Discussed and educated pt regarding benzodiazepines are generally not intended for prolonged use and that use can cause tolerance, dependence, depression, and associated memory issues including dementias (this list is not exhaustive). Benzodiazepine use is generally not recommended concurrently with pain medications and/or other controlled substances due to increased risks of profound sedation, respiratory depression, coma, and even . They are not to be used with any alcohol, as this combination can also be lethal. Patient was provided caution http_s://www.nimh .nih.gov/health/t opics/mental-heal th-medications http_s://www.[facility] .org/About-Mental -Illness/Treatmen ts/Mental-Health- Medications Recommend decrease/stop cannabis use as it may be negatively impacting mood, motivation, anxiety, sleep, focus; can also contribute to development of psychosis Patient educated on all medications including potential benefits, side effects, risks. Educated on proper dosing schedule and importance of compliance Discussed and educated pt regarding benzodiazepines are generally not intended for prolonged use and that use can cause tolerance, dependence, depression, and associated memory issues including dementias (this list is not exhaustive). Benzodiazepine use is generally not recommended concurrently with pain medications and/or other controlled substances due to educated on all medications, benefits, side effects and risk, and educated on depression, anxiety, and ADHD, mood d/o and educated on compliance of medications, metabolic and movement d/o education appointment is, continue therapy discussion with patient about course of treatment and patient instructions. education on serotonin syndrome SSRI/SNRI side effects discussed including but not limited to, gastric upset, nausea, vomiting, diarrhea and/or constipation, weight changes, sexual side effects including loss of libido, increased suicidal thoughts/behavior s in children and young adults, and serotonin syndrome. Second generation antipsychotics (SGAs) have metabolic syndrome issues with weight gain, increase in prolactin, increased waist circumference, increased lipids, and increased glucose. Thus routine monitoring of weight, metabolic labs, etc. is indicated. A general rank ordering of antipsychotics that have the greatest to the least risk of metabolic effects is olanzapine, quetiapine, risperidone, ziprasidone, and aripiprazole. However, weight gain can occur with all of these drugs and considerable variability exists among patients receiving the same drug regarding the risk of metabolic effects. Anti-psychotic agents not only increase the risk of metabolic disorder, they also increase the risk of CVA, akathisia, and movement disorders including EPS or tardive dyskinesia (more common with first generation antipsychotics) and more. Medication Management and Follow-Up - Plan: - Schedule follow-up appointments every 1-3 months to monitor the patient's response to the medication regimen. - Reinforce the importance of avoiding recreational drug use due to potential neurotoxicity and interactions with prescribed medications. 05/18/2024 Elevated blood pressure reading (ICD-10 - R03.0) 1. recurrent major depression -educated on UDS and policy and patient agreed, [place] Prescription program reviewed cymbalta 60 mg twice a daily educated on all medications, benefits, side effects and risk, and educated on depression, anxiety, and ADHD, mood d/o and educated on compliance of medications, metabolic and movement d/o education appointment's, continue therapy discussion with patient about course of treatmentand patient instructions. education on serotonin syndrome obtain labs top spotter educated patient KIT-2 test ADHD PCP prescribes at this time and may need top spotter clearance before rx will be prescribed related to cardiac issues- need to schedule- seen yearly 2. Generalized anxiety disorder - cymbalta 60 mg daily Lorazepam 1 mg at bedtime PRN - do not take Ambien no early refill on control substance and pharmacy in [place] and 30 days at a time UDS each vist and random no cannabis use with control substance or other drugs and/or ETOH 3. Chronic post-traumatic stress disorder -refer to therapy 4. ADHD combination -educated patient kit-2 test reviewed Self Report and KIT-AE2 congruent Adderall XR 30 MG DAILY and to take daily in am top spotter apptointment schedule ADHD rx approved had test completed no early refill on control substance [place] pharmacy only limit caffine monitor B/P ADHD stimulates education Discuss with patient risk of misuse, abuse, and addiction before prescribing stimulant medicines. [facility] Services patients not to share their prescribed stimulant with anyone else. Educate patients and their families on these serious risks, proper storage of the medicine, and proper disposal of any unused medicine. Educated patient will monitor Throughout treatment, regularly assess and monitor them for signs and symptoms of nonmedical use, addiction, and potential diversion, which may be evidenced by more frequent renewal. requests than warranted by the prescribed dosage. Random UDS [place] prescription reviewed local pharmacy in [place], no early refills on control substance educated on non-stimulate and stimulates may need top spotter clearance for ADHD rx scheduled 05/24/24 see PCP and top spotter with elevated BP educated on high BP and ADHD rx- on B/P rx and see PCP and top spotter scheduled 05/24/24 : Attention and concentration deficit 5. Long-term drug therapy -educated on UDS and policy and patient agreed,educated about cannabis and how may effects medications and mood and behaviors, UDS Ambien Complex Sleep Behaviors complex sleep behaviors may occur, incl. sleep-walking, sleep-driving, and engaging in other activities while not fully awake; may result in serious injuries, incl. ; D/C immediately if pt experiences a complex sleep behavior Discussed and educated pt regarding benzodiazepines are generally not intended for prolonged use and that use can cause tolerance, dependence, depression, and associated memory issues including dementias (this list is not exhaustive). Benzodiazepine use is generally not recommended concurrently with pain medications and/or other controlled substances due to increased risks of profound sedation, respiratory depression, coma, and even . They are not to be used with any alcohol, as this combination can also be lethal. Patient was provided caution http_s://www.nimh .nih.gov/health/t opics/mental-heal th-medications http_s://www.[facility] .org/About-Mental -Illness/Treatmen ts/Mental-Health- Medications Recommend decrease/stop cannabis use as it may be negatively impacting mood, motivation, anxiety, sleep, focus; can also contribute to development of psychosis Patient educated on all medications including potential benefits, side effects, risks. Educated on proper dosing schedule and importance of compliance Discussed and educated pt regarding benzodiazepines are generally not intended for prolonged use and that use can cause tolerance, dependence, depression, and associated memory issues including dementias (this list is not exhaustive). Benzodiazepine use is generally not recommended concurrently with pain medications and/or other controlled substances due to educated on all medications, benefits, side effects and risk, and educated on depression, anxiety, and ADHD, mood d/o and educated on compliance of medications, metabolic and movement d/o education appointment is, continue therapy discussion with patient about course of treatment and patient instructions. education on serotonin syndrome SSRI/SNRI side effects discussed including but not limited to, gastric upset, nausea, vomiting, diarrhea and/or constipation, weight changes, sexual side effects including loss of libido, increased suicidal thoughts/behavior s in children and young adults, and serotonin syndrome. Second generation antipsychotics (SGAs) have metabolic syndrome issues with weight gain, increase in prolactin, increased waist circumference, increased lipids, and increased glucose. Thus routine monitoring of weight, metabolic labs, etc. is indicated. A general rank ordering of antipsychotics that have the greatest to the least risk of metabolic effects is olanzapine, quetiapine, risperidone, ziprasidone, and aripiprazole. However, weight gain can occur with all of these drugs and considerable variability exists among patients receiving the same drug regarding the risk of metabolic effects. Anti-psychotic agents not only increase the risk of metabolic disorder, they also increase the risk of CVA, akathisia, and movement disorders including EPS or tardive dyskinesia (more common with first generation antipsychotics) and more. Medication Management and Follow-Up - Plan: - Schedule follow-up appointments every 1-3 months to monitor the patient's response to the medication regimen. - Reinforce the importance of avoiding recreational drug use due to potential neurotoxicity and interactions with prescribed medications. 11/15/2024 Other penitentiary (current) drug therapy (ICD-10 - Z79.899) Medication Refill: Care Instructions material was published, Medication Refill: Care Instructions material was published 1. major depression - educated on UDS and policy and patient agreed, [place] Prescription program reviewed Continue cymbalta 60 mg daily educated on all medications, benefits, side effects and risk, and educated on depression, anxiety, and ADHD, mood d/o and educated on compliance of medications, metabolic and movement d/o education appointment's, continue therapy discussion with patient about course of treatmentand patient instructions. education on serotonin syndrome labs top spotter/PCP SEE PCP and labs scheduled educated patient KIT-2 test top spotter clearance before rx will be prescribed related to cardiac issues- - seen yearly 2. Generalized anxiety disorder - cymbalta 60 mg daily Lorazepam 1 mg at bedtime PRN - no refill needed today no early refill on control substance and pharmacy in [place] and 30 days at a time UDS each vist and random no cannabis use with control substance or other drugs and/or ETOH 3. Chronic post-traumatic stress disorder -refer to therapy 4. ADHD combination -educated patient kit-2 test reviewed Self Report and KIT-AE2 congruent Adderall XR 30 MG DAILY and to take daily in am- no refill needed today top spotter ADHD rx approved no early refill on control substance [place] pharmacy only limit caffine monitor B/P ADHD stimulates education Discuss with patient risk of misuse, abuse, and addiction before prescribing stimulant medicines. [facility] Of [facility] Services patients not to share their prescribed stimulant with anyone else. Educate patients and their families on these serious risks, proper storage of the medicine, and proper disposal of any unused medicine. Educated patient will monitor Throughout treatment, regularly assess and monitor them for signs and symptoms of nonmedical use, addiction, and potential diversion, which may be evidenced by more frequent renewal. requests than warranted by the prescribed dosage. Random UDS [place] prescription reviewed local pharmacy in [facility], no early refills on control substance educated on non-stimulate and stimulates top spotter clearance for ADHD see PCP and top spotter BP educated on high BP and ADHD rx- on B/P rx and see PCP and top spotter scheduled 05/24/24 : Attention and concentration deficit 5. Long-term drug therapy -educated on UDS and policy and patient agreed,educated about cannabis and how may effects medications and mood and behaviors, UDS Ambien Complex Sleep Behaviors complex sleep behaviors may occur, incl. sleep-walking, sleep-driving, and engaging in other activities while not fully awake; may result in serious injuries, incl. ; D/C immediately if pt experiences a complex sleep behavior Discussed and educated pt regarding benzodiazepines are generally not intended for prolonged use and that use can cause tolerance, dependence, depression, and associated memory issues including dementias (this list is not exhaustive). Benzodiazepine use is generally not recommended concurrently with pain medications and/or other controlled substances due to increased risks of profound sedation, respiratory depression, coma, and even . They are not to be used with any alcohol, as this combination can also be lethal. Patient was provided caution http_s://www.nimh .nih.gov/health/t opics/mental-heal th-medications http_s://www.[facility] .org/About-Mental -Illness/Treatmen ts/Mental-Health- Medications Recommend decrease/stop cannabis use as it may be negatively impacting mood, motivation, anxiety, sleep, focus; can also contribute to development of psychosis Patient educated on all medications including potential benefits, side effects, risks. Educated on proper dosing schedule and importance of compliance Discussed and educated pt regarding benzodiazepines are generally not intended for prolonged use and that use can cause tolerance, dependence, depression, and associated memory issues including dementias (this list is not exhaustive). Benzodiazepine use is generally not recommended concurrently with pain medications and/or other controlled substances due to educated on all medications, benefits, side effects and risk, and educated on depression, anxiety, and ADHD, mood d/o and educated on compliance of medications, metabolic and movement d/o education appointment is, continue therapy discussion with patient about course of treatment and patient instructions. education on serotonin syndrome SSRI/SNRI side effects discussed including but not limited to, gastric upset, nausea, vomiting, diarrhea and/or constipation, weight changes, sexual side effects including loss of libido, increased suicidal thoughts/behavior s in children and young adults, and serotonin syndrome. Second generation antipsychotics (SGAs) have metabolic syndrome issues with weight gain, increase in prolactin, increased waist circumference, increased lipids, and increased glucose. Thus routine monitoring of weight, metabolic labs, etc. is indicated. A general rank ordering of antipsychotics that have the greatest to the least risk of metabolic effects is olanzapine, quetiapine, risperidone, ziprasidone, and aripiprazole. However, weight gain can occur with all of these drugs and considerable variability exists among patients receiving the same drug regarding the risk of metabolic effects. Anti-psychotic agents not only increase the risk of metabolic disorder, they also increase the risk of CVA, akathisia, and movement disorders including EPS or tardive dyskinesia (more common with first generation antipsychotics) and more. Medication Management and Follow-Up - Plan: - Schedule follow-up appointments every 1-3 months to monitor the patient's response to the medication regimen. - Reinforce the importance of avoiding recreational drug use due to potential neurotoxicity and interactions with prescribed medications. 08/19/2024 Other termite technician (current) drug therapy (ICD-10 - Z79.899) Medication Refill: Care Instructions material was published, Medication Refill: Care Instructions material was published 1. major depression - educated on UDS and policy and patient agreed, [place] Prescription program reviewed Continue cymbalta 60 mg daily educated on all medications, benefits, side effects and risk, and educated on depression, anxiety, and ADHD, mood d/o and educated on compliance of medications, metabolic and movement d/o education appointment's, continue therapy discussion with patient about course of treatmentand patient instructions. education on serotonin syndrome labs top spotter/PCP SCHEDULE TO SEE PCP and labs 11/05 educated patient KIT-2 test top spotter clearance before rx will be prescribed related to cardiac issues- - seen yearly 2. Generalized anxiety disorder - cymbalta 60 mg daily Lorazepam 1 mg at bedtime PRN - no refill needed today no early refill on control substance and pharmacy in [place] and 30 days at a time UDS each vist and random no cannabis use with control substance or other drugs and/or ETOH 3. Chronic post-traumatic stress disorder -refer to therapy 4. ADHD combination -educated patient kit-2 test reviewed Self Report and KIT-AE2 congruent Adderall XR 30 MG DAILY and to take daily in am- refill due 08/19/24 top spotter apptointment schedule ADHD rx approved had test completed no early refill on control substance [place] pharmacy only limit caffine monitor B/P ADHD stimulates education Discuss with patient risk of misuse, abuse, and addiction before prescribing stimulant medicines. Coordinator Of Rehabilitation Services patients not to share their prescribed stimulant with anyone else. Educate patients and their families on these serious risks, proper storage of the medicine, and proper disposal of any unused medicine. Educated patient will monitor Throughout treatment, regularly assess and monitor them for signs and symptoms of nonmedical use, addiction, and potential diversion, which may be evidenced by more frequent renewal. requests than warranted by the prescribed dosage. Random UDS [place] prescription reviewed local pharmacy in [facility], no early refills on control substance educated on non-stimulate and stimulates top spotter clearance for ADHD see PCP and top spotter BP educated on high BP and ADHD rx- on B/P rx and see PCP and top spotter scheduled 05/24/24 : Attention and concentration deficit 5. Long-term drug therapy -educated on UDS and policy and patient agreed,educated about cannabis and how may effects medications and mood and behaviors, UDS Ambien Complex Sleep Behaviors complex sleep behaviors may occur, incl. sleep-walking, sleep-driving, and engaging in other activities while not fully awake; may result in serious injuries, incl. ; D/C immediately if pt experiences a complex sleep behavior Discussed and educated pt regarding benzodiazepines are generally not intended for prolonged use and that use can cause tolerance, dependence, depression, and associated memory issues including dementias (this list is not exhaustive). Benzodiazepine use is generally not recommended concurrently with pain medications and/or other controlled substances due to increased risks of profound sedation, respiratory depression, coma, and even . They are not to be used with any alcohol, as this combination can also be lethal. Patient was provided caution http_s://www.nim .nih.gov/health/t opics/mental-heal th-medications http_s://www.[facility] .org/About-Mental -Illness/Treatmen ts/Mental-Health- Medications Recommend decrease/stop cannabis use as it may be negatively impacting mood, motivation, anxiety, sleep, focus; can also contribute to development of psychosis Patient educated on all medications including potential benefits, side effects, risks. Educated on proper dosing schedule and importance of compliance Discussed and educated pt regarding benzodiazepines are generally not intended for prolonged use and that use can cause tolerance, dependence, depression, and associated memory issues including dementias (this list is not exhaustive). Benzodiazepine use is generally not recommended concurrently with pain medications and/or other controlled substances due to educated on all medications, benefits, side effects and risk, and educated on depression, anxiety, and ADHD, mood d/o and educated on compliance of medications, metabolic and movement d/o education appointment is, continue therapy discussion with patient about course of treatment and patient instructions. education on serotonin syndrome SSRI/SNRI side effects discussed including but not limited to, gastric upset, nausea, vomiting, diarrhea and/or constipation, weight changes, sexual side effects including loss of libido, increased suicidal thoughts/behavior s in children and young adults, and serotonin syndrome. Second generation antipsychotics (SGAs) have metabolic syndrome issues with weight gain, increase in prolactin, increased waist circumference, increased lipids, and increased glucose. Thus routine monitoring of weight, metabolic labs, etc. is indicated. A general rank ordering of antipsychotics that have the greatest to the least risk of metabolic effects is olanzapine, quetiapine, risperidone, ziprasidone, and aripiprazole. However, weight gain can occur with all of these drugs and considerable variability exists among patients receiving the same drug regarding the risk of metabolic effects. Anti-psychotic agents not only increase the risk of metabolic disorder, they also increase the risk of CVA, akathisia, and movement disorders including EPS or tardive dyskinesia (more common with first generation antipsychotics) and more. Medication Management and Follow-Up - Plan: - Schedule follow-up appointments every 1-3 months to monitor the patient's response to the medication regimen. - Reinforce the importance of avoiding recreational drug use due to potential neurotoxicity and interactions with prescribed medications. 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 major depression - educated on UDS and policy and patient agreed, [place] Prescription program reviewed Continue cymbalta 60 mg daily educated on all medications, benefits, side effects and risk, and educated on depression, anxiety, and ADHD, mood d/o and educated on compliance of medications, metabolic and movement d/o education appointment's, continue therapy discussion with patient about course of treatmentand patient instructions. education on serotonin syndrome labs top spotter/PCP SEE PCP and labs scheduled educated patient KIT-2 test top spotter clearance before rx will be prescribed related to cardiac issues- - seen yearly 2. Generalized anxiety disorder - cymbalta 60 mg daily Lorazepam 1 mg at bedtime PRN - no refill needed today no early refill on control substance and pharmacy in [place] and 30 days at a time UDS each vist and random no cannabis use with control substance or other drugs and/or ETOH 3. Chronic post-traumatic stress disorder -refer to therapy 4. ADHD combination -educated patient kit-2 test reviewed Self Report and KIT-AE2 congruent Adderall XR 30 MG DAILY and to take daily in am- no refill needed today top spotter ADHD rx approved no early refill on control substance [place] pharmacy only limit caffine monitor B/P ADHD stimulates education Discuss with patient risk of misuse, abuse, and addiction before prescribing stimulant medicines. Coordinator Of Rehabilitation Services patients not to share their prescribed stimulant with anyone else. Educate patients and their families on these serious risks, proper storage of the medicine, and proper disposal of any unused medicine. Educated patient will monitor Throughout treatment, regularly assess and monitor them for signs and symptoms of nonmedical use, addiction, and potential diversion, which may be evidenced by more frequent renewal. requests than warranted by the prescribed dosage. Random UDS [place] prescription reviewed local pharmacy in [place], no early refills on control substance educated on non-stimulate and stimulates top spotter clearance for ADHD recieved 11/05 and see every 6 months see PCP and top spotter BP educated on high BP and ADHD rx- on B/P rx and seen PCP and top spotter seen 11/05 Attention and concentration deficit 5. Long-term drug therapy -educated on UDS and policy and patient agreed,educated about cannabis and how may effects medications and mood and behaviors, UDS Ambien Complex Sleep Behaviors complex sleep behaviors may occur, incl. sleep-walking, sleep-driving, and engaging in other activities while not fully awake; may result in serious injuries, incl. ; D/C immediately if pt experiences a complex sleep behavior Discussed and educated pt regarding benzodiazepines are generally not intended for prolonged use and that use can cause tolerance, dependence, depression, and associated memory issues including dementias (this list is not exhaustive). Benzodiazepine use is generally not recommended concurrently with pain medications and/or other controlled substances due to increased risks of profound sedation, respiratory depression, coma, and even . They are not to be used with any alcohol, as this combination can also be lethal. Patient was provided caution http_s://www.nimh .nih.gov/health/t opics/mental-heal th-medications http_s://www.[facility] .org/About-Mental -Illness/Treatmen ts/Mental-Health- Medications Recommend decrease/stop cannabis use as it may be negatively impacting mood, motivation, anxiety, sleep, focus; can also contribute to development of psychosis Patient educated on all medications including potential benefits, side effects, risks. Educated on proper dosing schedule and importance of compliance Discussed and educated pt regarding benzodiazepines are generally not intended for prolonged use and that use can cause tolerance, dependence, depression, and associated memory issues including dementias (this list is not exhaustive). Benzodiazepine use is generally not recommended concurrently with pain medications and/or other controlled substances due to educated on all medications, benefits, side effects and risk, and educated on depression, anxiety, and ADHD, mood d/o and educated on compliance of medications, metabolic and movement d/o education appointment is, continue therapy discussion with patient about course of treatment and patient instructions. education on serotonin syndrome SSRI/SNRI side effects discussed including but not limited to, gastric upset, nausea, vomiting, diarrhea and/or constipation, weight changes, sexual side effects including loss of libido, increased suicidal thoughts/behavior s in children and young adults, and serotonin syndrome. Second generation antipsychotics (SGAs) have metabolic syndrome issues with weight gain, increase in prolactin, increased waist circumference, increased lipids, and increased glucose. Thus routine monitoring of weight, metabolic labs, etc. is indicated. A general rank ordering of antipsychotics that have the greatest to the least risk of metabolic effects is olanzapine, quetiapine, risperidone, ziprasidone, and aripiprazole. However, weight gain can occur with all of these drugs and considerable variability exists among patients receiving the same drug regarding the risk of metabolic effects. Anti-psychotic agents not only increase the risk of metabolic disorder, they also increase the risk of CVA, akathisia, and movement disorders including EPS or tardive dyskinesia (more common with first generation antipsychotics) and more. Medication Management and Follow-Up - Plan: - Schedule follow-up appointments every 1-3 months to monitor the patient's response to the medication regimen. - Reinforce the importance of avoiding recreational drug use due to potential neurotoxicity and interactions with prescribed medications. 08/19/2024 Elevated blood pressure reading (ICD-10 - R03.0) 1. major depression - educated on UDS and policy and patient agreed, [place] Prescription program reviewed Continue cymbalta 60 mg daily educated on all medications, benefits, side effects and risk, and educated on depression, anxiety, and ADHD, mood d/o and educated on compliance of medications, metabolic and movement d/o education appointment's, continue therapy discussion with patient about course of treatmentand patient instructions. education on serotonin syndrome labs top spotter/PCP SCHEDULE TO SEE PCP and labs 11/05 educated patient KIT-2 test top spotter clearance before rx will be prescribed related to cardiac issues- - seen yearly 2. Generalized anxiety disorder - cymbalta 60 mg daily Lorazepam 1 mg at bedtime PRN - no refill needed today no early refill on control substance and pharmacy in [place] and 30 days at a time UDS each vist and random no cannabis use with control substance or other drugs and/or ETOH 3. Chronic post-traumatic stress disorder -refer to therapy 4. ADHD combination -educated patient kit-2 test reviewed Self Report and KIT-AE2 congruent Adderall XR 30 MG DAILY and to take daily in am- refill due 08/19/24 top spotter apptointment schedule ADHD rx approved had test completed no early refill on control substance [place] pharmacy only limit caffine monitor B/P ADHD stimulates education Discuss with patient risk of misuse, abuse, and addiction before prescribing stimulant medicines. Coordinator Of Rehabilitation Services patients not to share their prescribed stimulant with anyone else. Educate patients and their families on these serious risks, proper storage of the medicine, and proper disposal of any unused medicine. Educated patient will monitor Throughout treatment, regularly assess and monitor them for signs and symptoms of nonmedical use, addiction, and potential diversion, which may be evidenced by more frequent renewal. requests than warranted by the prescribed dosage. Random UDS [place] prescription reviewed local pharmacy in [facility], no early refills on control substance educated on non-stimulate and stimulates top spotter clearance for ADHD see PCP and top spotter BP educated on high BP and ADHD rx- on B/P rx and see PCP and top spotter scheduled 05/24/24 : Attention and concentration deficit 5. Long-term drug therapy -educated on UDS and policy and patient agreed,educated about cannabis and how may effects medications and mood and behaviors, UDS Ambien Complex Sleep Behaviors complex sleep behaviors may occur, incl. sleep-walking, sleep-driving, and engaging in other activities while not fully awake; may result in serious injuries, incl. ; D/C immediately if pt experiences a complex sleep behavior Discussed and educated pt regarding benzodiazepines are generally not intended for prolonged use and that use can cause tolerance, dependence, depression, and associated memory issues including dementias (this list is not exhaustive). Benzodiazepine use is generally not recommended concurrently with pain medications and/or other controlled substances due to increased risks of profound sedation, respiratory depression, coma, and even . They are not to be used with any alcohol, as this combination can also be lethal. Patient was provided caution http_s://www.nim .nih.gov/health/t opics/mental-heal th-medications http_s://www.[facility] .org/About-Mental -Illness/Treatmen ts/Mental-Health- Medications Recommend decrease/stop cannabis use as it may be negatively impacting mood, motivation, anxiety, sleep, focus; can also contribute to development of psychosis Patient educated on all medications including potential benefits, side effects, risks. Educated on proper dosing schedule and importance of compliance Discussed and educated pt regarding benzodiazepines are generally not intended for prolonged use and that use can cause tolerance, dependence, depression, and associated memory issues including dementias (this list is not exhaustive). Benzodiazepine use is generally not recommended concurrently with pain medications and/or other controlled substances due to educated on all medications, benefits, side effects and risk, and educated on depression, anxiety, and ADHD, mood d/o and educated on compliance of medications, metabolic and movement d/o education appointment is, continue therapy discussion with patient about course of treatment and patient instructions. education on serotonin syndrome SSRI/SNRI side effects discussed including but not limited to, gastric upset, nausea, vomiting, diarrhea and/or constipation, weight changes, sexual side effects including loss of libido, increased suicidal thoughts/behavior s in children and young adults, and serotonin syndrome. Second generation antipsychotics (SGAs) have metabolic syndrome issues with weight gain, increase in prolactin, increased waist circumference, increased lipids, and increased glucose. Thus routine monitoring of weight, metabolic labs, etc. is indicated. A general rank ordering of antipsychotics that have the greatest to the least risk of metabolic effects is olanzapine, quetiapine, risperidone, ziprasidone, and aripiprazole. However, weight gain can occur with all of these drugs and considerable variability exists among patients receiving the same drug regarding the risk of metabolic effects. Anti-psychotic agents not only increase the risk of metabolic disorder, they also increase the risk of CVA, akathisia, and movement disorders including EPS or tardive dyskinesia (more common with first generation antipsychotics) and more. Medication Management and Follow-Up - Plan: - Schedule follow-up appointments every 1-3 months to monitor the patient's response to the medication regimen. - Reinforce the importance of avoiding recreational drug use due to potential neurotoxicity and interactions with prescribed medications. 11/15/2024 Elevated blood pressure reading (ICD-10 - R03.0) 1. major depression - educated on UDS and policy and patient agreed, [place] Prescription program reviewed Continue cymbalta 60 mg daily educated on all medications, benefits, side effects and risk, and educated on depression, anxiety, and ADHD, mood d/o and educated on compliance of medications, metabolic and movement d/o education appointment's, continue therapy discussion with patient about course of treatmentand patient instructions. education on serotonin syndrome labs top spotter/PCP SEE PCP and labs scheduled educated patient KIT-2 test top spotter clearance before rx will be prescribed related to cardiac issues- - seen yearly 2. Generalized anxiety disorder - cymbalta 60 mg daily Lorazepam 1 mg at bedtime PRN - no refill needed today no early refill on control substance and pharmacy in [place] and 30 days at a time UDS each vist and random no cannabis use with control substance or other drugs and/or ETOH 3. Chronic post-traumatic stress disorder -refer to therapy 4. ADHD combination -educated patient kit-2 test reviewed Self Report and KIT-AE2 congruent Adderall XR 30 MG DAILY and to take daily in am- no refill needed today top spotter ADHD rx approved no early refill on control substance [place] pharmacy only limit caffine monitor B/P ADHD stimulates education Discuss with patient risk of misuse, abuse, and addiction before prescribing stimulant medicines. Coordinator Of Rehabilitation Services patients not to share their prescribed stimulant with anyone else. Educate patients and their families on these serious risks, proper storage of the medicine, and proper disposal of any unused medicine. Educated patient will monitor Throughout treatment, regularly assess and monitor them for signs and symptoms of nonmedical use, addiction, and potential diversion, which may be evidenced by more frequent renewal. requests than warranted by the prescribed dosage. Random UDS [place] prescription reviewed local pharmacy in [facility], no early refills on control substance educated on non-stimulate and stimulates top spotter clearance for ADHD see PCP and top spotter BP educated on high BP and ADHD rx- on B/P rx and see PCP and top spotter scheduled 05/24/24 : Attention and concentration deficit 5. Long-term drug therapy -educated on UDS and policy and patient agreed,educated about cannabis and how may effects medications and mood and behaviors, UDS Ambien Complex Sleep Behaviors complex sleep behaviors may occur, incl. sleep-walking, sleep-driving, and engaging in other activities while not fully awake; may result in serious injuries, incl. ; D/C immediately if pt experiences a complex sleep behavior Discussed and educated pt regarding benzodiazepines are generally not intended for prolonged use and that use can cause tolerance, dependence, depression, and associated memory issues including dementias (this list is not exhaustive). Benzodiazepine use is generally not recommended concurrently with pain medications and/or other controlled substances due to increased risks of profound sedation, respiratory depression, coma, and even . They are not to be used with any alcohol, as this combination can also be lethal. Patient was provided caution http_s://www.nim .nih.gov/health/t opics/mental-heal th-medications http_s://www.[facility] .org/About-Mental -Illness/Treatmen ts/Mental-Health- Medications Recommend decrease/stop cannabis use as it may be negatively impacting mood, motivation, anxiety, sleep, focus; can also contribute to development of psychosis Patient educated on all medications including potential benefits, side effects, risks. Educated on proper dosing schedule and importance of compliance Discussed and educated pt regarding benzodiazepines are generally not intended for prolonged use and that use can cause tolerance, dependence, depression, and associated memory issues including dementias (this list is not exhaustive). Benzodiazepine use is generally not recommended concurrently with pain medications and/or other controlled substances due to educated on all medications, benefits, side effects and risk, and educated on depression, anxiety, and ADHD, mood d/o and educated on compliance of medications, metabolic and movement d/o education appointment is, continue therapy discussion with patient about course of treatment and patient instructions. education on serotonin syndrome SSRI/SNRI side effects discussed including but not limited to, gastric upset, nausea, vomiting, diarrhea and/or constipation, weight changes, sexual side effects including loss of libido, increased suicidal thoughts/behavior s in children and young adults, and serotonin syndrome. Second generation antipsychotics (SGAs) have metabolic syndrome issues with weight gain, increase in prolactin, increased waist circumference, increased lipids, and increased glucose. Thus routine monitoring of weight, metabolic labs, etc. is indicated. A general rank ordering of antipsychotics that have the greatest to the least risk of metabolic effects is olanzapine, quetiapine, risperidone, ziprasidone, and aripiprazole. However, weight gain can occur with all of these drugs and considerable variability exists among patients receiving the same drug regarding the risk of metabolic effects. Anti-psychotic agents not only increase the risk of metabolic disorder, they also increase the risk of CVA, akathisia, and movement disorders including EPS or tardive dyskinesia (more common with first generation antipsychotics) and more. Medication Management and Follow-Up - Plan: - Schedule follow-up appointments every 1-3 months to monitor the patient's response to the medication regimen. - Reinforce the importance of avoiding recreational drug use due to potential neurotoxicity and interactions with prescribed medications. 03/08/2025 Encounter for screening for cardiovascular disorders (ICD-10 - Z13.6) 1. major depression - educated on UDS and policy and patient agreed, [place] Prescription program reviewed Continue cymbalta 60 mg daily educated on all medications, benefits, side effects and risk, and educated on depression, anxiety, and ADHD, mood d/o and educated on compliance of medications, metabolic and movement d/o education appointment's, continue therapy discussion with patient about course of treatmentand patient instructions. education on serotonin syndrome labs top spotter/PCP SEE PCP and labs scheduled educated patient KIT-2 test top spotter clearance before rx will be prescribed related to cardiac issues- - seen yearly 2. Generalized anxiety disorder - cymbalta 60 mg daily Lorazepam 1 mg at bedtime PRN - no refill needed today no early refill on control substance and pharmacy in [place] and 30 days at a time UDS each vist and random no cannabis use with control substance or other drugs and/or ETOH 3. Chronic post-traumatic stress disorder -refer to therapy 4. ADHD combination -educated patient kit-2 test reviewed Self Report and KIT-AE2 congruent Adderall XR 30 MG DAILY and to take daily in am- no refill needed today top spotter ADHD rx approved no early refill on control substance [place] pharmacy only limit caffine monitor B/P ADHD stimulates education Discuss with patient risk of misuse, abuse, and addiction before prescribing stimulant medicines. Coordinator Of Rehabilitation Services patients not to share their prescribed stimulant with anyone else. Educate patients and their families on these serious risks, proper storage of the medicine, and proper disposal of any unused medicine. Educated patient will monitor Throughout treatment, regularly assess and monitor them for signs and symptoms of nonmedical use, addiction, and potential diversion, which may be evidenced by more frequent renewal. requests than warranted by the prescribed dosage. Random UDS [place] prescription reviewed local pharmacy in [facility], no early refills on control substance educated on non-stimulate and stimulates top spotter clearance for ADHD recieved 11/05 and see every 6 months see PCP and top spotter BP educated on high BP and ADHD rx- on B/P rx and seen PCP and top spotter seen 11/05 Attention and concentration deficit 5. Long-term drug therapy -educated on UDS and policy and patient agreed,educated about cannabis and how may effects medications and mood and behaviors, UDS Ambien Complex Sleep Behaviors complex sleep behaviors may occur, incl. sleep-walking, sleep-driving, and engaging in other activities while not fully awake; may result in serious injuries, incl. ; D/C immediately if pt experiences a complex sleep behavior Discussed and educated pt regarding benzodiazepines are generally not intended for prolonged use and that use can cause tolerance, dependence, depression, and associated memory issues including dementias (this list is not exhaustive). Benzodiazepine use is generally not recommended concurrently with pain medications and/or other controlled substances due to increased risks of profound sedation, respiratory depression, coma, and even . They are not to be used with any alcohol, as this combination can also be lethal. Patient was provided caution http_s://www.nimh .nih.gov/health/t opics/mental-heal th-medications http_s://www.[facility] .org/About-Mental -Illness/Treatmen ts/Mental-Health- Medications Recommend decrease/stop cannabis use as it may be negatively impacting mood, motivation, anxiety, sleep, focus; can also contribute to development of psychosis Patient educated on all medications including potential benefits, side effects, risks. Educated on proper dosing schedule and importance of compliance Discussed and educated pt regarding benzodiazepines are generally not intended for prolonged use and that use can cause tolerance, dependence, depression, and associated memory issues including dementias (this list is not exhaustive). Benzodiazepine use is generally not recommended concurrently with pain medications and/or other controlled substances due to educated on all medications, benefits, side effects and risk, and educated on depression, anxiety, and ADHD, mood d/o and educated on compliance of medications, metabolic and movement d/o education appointment is, continue therapy discussion with patient about course of treatment and patient instructions. education on serotonin syndrome SSRI/SNRI side effects discussed including but not limited to, gastric upset, nausea, vomiting, diarrhea and/or constipation, weight changes, sexual side effects including loss of libido, increased suicidal thoughts/behavior s in children and young adults, and serotonin syndrome. Second generation antipsychotics (SGAs) have metabolic syndrome issues with weight gain, increase in prolactin, increased waist circumference, increased lipids, and increased glucose. Thus routine monitoring of weight, metabolic labs, etc. is indicated. A general rank ordering of antipsychotics that have the greatest to the least risk of metabolic effects is olanzapine, quetiapine, risperidone, ziprasidone, and aripiprazole. However, weight gain can occur with all of these drugs and considerable variability exists among patients receiving the same drug regarding the risk of metabolic effects. Anti-psychotic agents not only increase the risk of metabolic disorder, they also increase the risk of CVA, akathisia, and movement disorders including EPS or tardive dyskinesia (more common with first generation antipsychotics) and more. Medication Management and Follow-Up - Plan: - Schedule follow-up appointments every 1-3 months to monitor the patient's response to the medication regimen. - Reinforce the importance of avoiding recreational drug use due to potential neurotoxicity and interactions with prescribed medications. 11/15/2024 Encounter for screening for cardiovascular disorders (ICD-10 - Z13.6) 1. major depression - educated on UDS and policy and patient agreed, [place] Prescription program reviewed Continue cymbalta 60 mg daily educated on all medications, benefits, side effects and risk, and educated on depression, anxiety, and ADHD, mood d/o and educated on compliance of medications, metabolic and movement d/o education appointment's, continue therapy discussion with patient about course of treatmentand patient instructions. education on serotonin syndrome labs top spotter/PCP SEE PCP and labs scheduled educated patient KIT-2 test top spotter clearance before rx will be prescribed related to cardiac issues- - seen yearly 2. Generalized anxiety disorder - cymbalta 60 mg daily Lorazepam 1 mg at bedtime PRN - no refill needed today no early refill on control substance and pharmacy in [place] and 30 days at a time UDS each vist and random no cannabis use with control substance or other drugs and/or ETOH 3. Chronic post-traumatic stress disorder -refer to therapy 4. ADHD combination -educated patient kit-2 test reviewed Self Report and KIT-AE2 congruent Adderall XR 30 MG DAILY and to take daily in am- no refill needed today top spotter ADHD rx approved no early refill on control substance [place] pharmacy only limit caffine monitor B/P ADHD stimulates education Discuss with patient risk of misuse, abuse, and addiction before prescribing stimulant medicines. Coordinator Of Rehabilitation Services patients not to share their prescribed stimulant with anyone else. Educate patients and their families on these serious risks, proper storage of the medicine, and proper disposal of any unused medicine. Educated patient will monitor Throughout treatment, regularly assess and monitor them for signs and symptoms of nonmedical use, addiction, and potential diversion, which may be evidenced by more frequent renewal. requests than warranted by the prescribed dosage. Random UDS [place] prescription reviewed local pharmacy in [facility], no early refills on control substance educated on non-stimulate and stimulates top spotter clearance for ADHD see PCP and top spotter BP educated on high BP and ADHD rx- on B/P rx and see PCP and top spotter scheduled 05/24/24 : Attention and concentration deficit 5. Long-term drug therapy -educated on UDS and policy and patient agreed,educated about cannabis and how may effects medications and mood and behaviors, UDS Ambien Complex Sleep Behaviors complex sleep behaviors may occur, incl. sleep-walking, sleep-driving, and engaging in other activities while not fully awake; may result in serious injuries, incl. ; D/C immediately if pt experiences a complex sleep behavior Discussed and educated pt regarding benzodiazepines are generally not intended for prolonged use and that use can cause tolerance, dependence, depression, and associated memory issues including dementias (this list is not exhaustive). Benzodiazepine use is generally not recommended concurrently with pain medications and/or other controlled substances due to increased risks of profound sedation, respiratory depression, coma, and even . They are not to be used with any alcohol, as this combination can also be lethal. Patient was provided caution http_s://www.nimh .nih.gov/health/t opics/mental-heal th-medications http_s://www.[facility] .org/About-Mental -Illness/Treatmen ts/Mental-Health- Medications Recommend decrease/stop cannabis use as it may be negatively impacting mood, motivation, anxiety, sleep, focus; can also contribute to development of psychosis Patient educated on all medications including potential benefits, side effects, risks. Educated on proper dosing schedule and importance of compliance Discussed and educated pt regarding benzodiazepines are generally not intended for prolonged use and that use can cause tolerance, dependence, depression, and associated memory issues including dementias (this list is not exhaustive). Benzodiazepine use is generally not recommended concurrently with pain medications and/or other controlled substances due to educated on all medications, benefits, side effects and risk, and educated on depression, anxiety, and ADHD, mood d/o and educated on compliance of medications, metabolic and movement d/o education appointment is, continue therapy discussion with patient about course of treatment and patient instructions. education on serotonin syndrome SSRI/SNRI side effects discussed including but not limited to, gastric upset, nausea, vomiting, diarrhea and/or constipation, weight changes, sexual side effects including loss of libido, increased suicidal thoughts/behavior s in children and young adults, and serotonin syndrome. Second generation antipsychotics (SGAs) have metabolic syndrome issues with weight gain, increase in prolactin, increased waist circumference, increased lipids, and increased glucose. Thus routine monitoring of weight, metabolic labs, etc. is indicated. A general rank ordering of antipsychotics that have the greatest to the least risk of metabolic effects is olanzapine, quetiapine, risperidone, ziprasidone, and aripiprazole. However, weight gain can occur with all of these drugs and considerable variability exists among patients receiving the same drug regarding the risk of metabolic effects. Anti-psychotic agents not only increase the risk of metabolic disorder, they also increase the risk of CVA, akathisia, and movement disorders including EPS or tardive dyskinesia (more common with first generation antipsychotics) and more. Medication Management and Follow-Up - Plan: - Schedule follow-up appointments every 1-3 months to monitor the patient's response to the medication regimen. - Reinforce the importance of avoiding recreational drug use due to potential neurotoxicity and interactions with prescribed medications. Plan Of Treatment Pending Test Test Name Order Date UDT 05/18/2024 Future Test Test Name Order Date ADHD Testing 02/03/2024 Insurance Providers Payer Name Payer Address Payer Phone Subscriber Number Group Number Insured Name Patient Relationship to Insured Coverage Start Date Coverage End Date [facility] Benefit Plan Management - [employer] [address] [place] [id number] JAVON MURRAY Spouse - patient is the spouse of the insured [place] [address] [address] [place] [address] [id number] AMINAH MURRAY Self - patient is the insured Medical (General) History Medical History History ICD Code Problems: Chronic post-traumatic stress disorder Generalized anxiety disorder Long-term drug therapy Moderate recurrent major depression Unable to concentrate , Past Psychiatric History: An xiety Disorder,Panic Disorder,PTSD,Major Depressive Episode undefined abdominal aortic aneurysm: No atrial fibrillation: Yes essential tremor: Yes hyperlipidemia: No hypertension: Yes Parkinson's disease: No restless leg syndrome: No stroke: No subdural hematoma: No type 2 diabetes mellitus: Yes vitamin B12 deficiency: No vitamin D deficiency: No Surgical History Surgery Date(Month/Year) Remove tonsils and adenoids ([id number]) 07/1985 Hysterectomy/revise vagina ([id number]) 07/14 Cholecystectomy ([id number]) 07/14/2006
--- OUTSIDE RECORDS SUMMARY | 2025-05-12 11:43 | XMS_ITS | Clinical Summary ---
Author Organization [id number] Address [address] [place] [address] Care Team Providers Care Health Sciences Program Coordinator Name Role Phone Cherrie Prince MD Unavailable [phone] Roni Hernandez MD Primary Care Provider [phone] Source Comments [facility],non-owned Affiliates and Associated Physician Practices is amultiple site organization consisting of ambulatory clinics and hospital sitesin [place], [place], [place] and [place]. This disclosure is being madepursuant to the Care Everywhere program and may not contain all information available regarding this patient. Last updated 18.[id number] Allergies Active Allergy Reactions Criticality Noted Date Comments Morphine Other 12/17/2018 Vomiting Sulfa Drugs Other 12/17/2018 Vomiting Medications * This document contains information received from the source organization and may not represent a complete record from that organization. * Be aware that medications may not be up to date on this document. Alwaysverify current medications with the patient. levothyroxine (SYNTHROID) 88 MCG tablet Take 88 mcg by mouth daily before breakfast Active calcium carbonate-vitamin D (OS-MÓNICA 500 PLUS D) 500-200 MG-UNIT tablet Take 1 tablet by mouth 2 times daily Active ALBUTEROL IN Active cetirizine (ZYRTEC ALLERGY) 10 MG gel capsule Take 10 mg by mouth once daily Active diphenoxylate-atropine (LOMOTIL) 2.5-0.025 MG tablet Take 1 tablet by mouth 4 times daily as needed for Diarrhea 30 tablet 06/16/20 20 Active amphetamine-dextroamphe tamine (ADDERALL) 10 MG tabletIndications:Atten tion deficit hyperactivity disorder (ADHD), other type Take 1 (one) tablet by mouth once daily 30 tablet 11/18/19 21 Active amphetamine-dextroamphe tamine XR 24hr (ADDERALL XR) 30 MG capsuleIndications:Atte ntion deficit hyperactivity disorder (ADHD), other type Take 1 (one) capsule by mouth every morning 30 capsule 11/18/19 21 Active DULoxetine (CYMBALTA) 60 MG capsule Take 1 (one) capsule by mouth once daily 30 capsule 4 12/28/19 21 Active LORazepam (ATIVAN) 0.5 MG tablet Take 0.5-1 tab as needed for anxiety 10 tablet 1 12/28/19 21 Active amphetamine-dextroamphe tamine XR 24hr (ADDERALL XR) 30 MG capsule Take 1 (one) capsule by mouth every morning 30 capsule 01/27/20 21 Active amphetamine-dextroamphe tamine XR 24hr (ADDERALL XR) 30 MG capsule Take 1 (one) capsule by mouth every morning 30 capsule 12/28/19 21 Active amphetamine-dextroamphe tamine (ADDERALL) 10 MG tablet Take 1 (one) tablet by mouth every morning 30 tablet 01/27/20 21 Active amphetamine-dextroamphe tamine (ADDERALL) 10 MG tablet Take 1 (one) tablet by mouth every morning 30 tablet 12/28/19 21 Active metFORMIN (GLUCOPHAGE) 1000 MG tabletIndications:Type 2 diabetes mellitus with hyperosmolarity without coma, without long-term current use of insulin (HCC) Take 0.5 (one-half) tablet by mouth daily with breakfast 90 tablet 3 04/13/20 21 Active albuterol HFA (PROAIR HFA) 108 (90 Base) MCG/ACT inhaler Inhale 2 (two) puffs by mouth every 4 hours as needed 8.5 g 04/13/20 21 Active fluticasone propionate (FLONASE) 50 MCG/ACT nasal spray USE 2 SPRAYS INTO EACH NOSTRIL DAILY 16 g 2 04/13/20 21 Active losartan - hydroCHLOROthiazide (HYZAAR) 50-12.5 MG tablet Take 1 (one) tablet by mouth once daily 30 tablet 06/19/20 21 Active rizatriptan (MAXALT) 10 MG tablet TAKE 1 TABLET BY MOUTH AT ONSET OF MIGRAINE. MAY REPEAT 1 TIME DOSE AFTER 2 HOURS NEEDED. NOT TO EXCEED MORE THAN 2 TABLET IN 24 HOURS 10 tablet 3 06/27/20 21 Active Active Problems Problem Noted Date Diagnosed Date Uncontrolled type 2 diabetes mellitus with hyper glycemia 04/13/2021 Right calf pain 11/17/2020 Essential hypertension 11/17/2020 Vestibular migraine 05/21/2019 Dizziness 05/21/2019 Major depressive disorder, r ecurrent episode, moderate degree 02/04/2019 PTSD (post-traumatic stress disorder) 02/04/2019 Degenerative disc disease, cervical 12/17/2018 Degenerative disc disease, lumbar 12/17/2018 ADHD 12/17/2018 Diabetes mellitus, type II 12/17/2018 Assessment & Plan (04/15/2019 2:36 PM CDT): Glucose readings elevated up to 220--encouraged patient to continue to monitor glucose if she is feeling bad or if she feels they are high or low (as she is not on insulin does not need to monitor regularly otherwise) Continue medications History of uterine cancer 12/17/2018 Hypothyroid 12/17/2018 Migraine with aura 12/17/2018 Mild intermittent asthma without complication Resolved Problems Problem Noted Date Diagnosed Date Resolved Date Acute bacterial sinusitis 04/15/2019 Assessment & Plan (04/15/2019 2:34 PM CDT): Based on symptom duration (3wk), exam, will treat for bacterial sinusitis with Augmentin for 5 days Cobblestoning in throat indicates likely post nasal drip--start fluticasone nasal spray 1 spray/nostril daily Increase PO intake--dry mucous membranes Diarrhea 04/15/2019 05/13/2019 Assessment & Plan (04/15/2019 2:35 PM CDT): Unclear etiology--unlikely C diff based on clinical history (patient also previously worked in senior living, does not think this is similar to C diff) Will monitor with treatment of bacterial sinusitis--re-eval at upcoming PCP appointment on 04/19 Encourage PO hydration Recommended patient avoid/minimize dairy Migraine aura without headache 12/17/2018 12/17/2018 Immunizations Immunization Administration Dates Next Due [employer] primary monoval ent 12+ yr 0.3mL Purple cap 12/01/2020,11/10/2020 INFLUENZA VACCINE, QUADR. (F LUZONE; FLULAVAL; FLUARIX; AFLURIA QUADRIVALENT; 6MO+), 0.5 ML (IIV4) 04/19/2019 PNEUMOCOCCAL PPSV23 12/18/2018 TDAP (7yrs+) 12/18/2018 iNFLUENZA VACCINE, RECOM-BARROS, QUADR. (FLUBLOCK QUADRIVALENT; 18Y+) (RIV4) 04/13/2021,05/19/2020 Family History Medical History Relation Name Comments Cancer - Esophageal Brother Cancer - Esophageal Father Hypertension Father Diabetes - Type 1 Maternal Grandfather CAD (Coronary Artery Disease) Maternal Grandmother CHF and CAD Cancer - Breast Mother BRCA positiv e Cancer - Renal Paternal Grandfather CAD (Coronary Artery Disease) Paternal Grandmother Relation Name Status Comments Brother Alive Father Maternal Grandfather Maternal Grandmother Mother Alive Paternal Grandfather Paternal Grandmother Sister Alive Social History Tobacco Use Types Packs/Day Years Used Date Smoking Tobacco: Never Smokeless Tobacco: Never Alcohol Use Standard Drinks/Week Comments Yes 0 (1 standard drink = 0.6 oz pur e alcohol) socially PHQ-2 Answer Date Recorded PHQ2 TOTAL SCORE 0 12/27/2020 Comments No Sex and Gender Information Value Date Recorded Sex Assigned at Not on file 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 Not on file Not on file Not on file Last Filed Vital Signs Vital Sign Reading Time Taken Comments Blood Pressure 145/92 04/13/2021 12:57 PM CDT Pulse 84 04/13/2021 12:57 PM CDT Temperature 37 C (98.6 F) 04/13/2021 12:57 PM CDT Respiratory Rate 16 06/15/2020 10:04 PM TOWER HELPER Oxygen Saturation 96% 04/13/2021 12:57 PM CDT Inhaled Oxygen Concentration - - Weight 136.5 kg (301 lb) 04/13/2021 12:57 PM CDT Height 162.6 cm (5' 4) 04/13/2021 12:57 PM CDT Body Mass Index 51.67 04/13/2021 12:57 PM CDT Plan of Treatment Health Maintenance Due Date Last Done Comments COLOGUARD (AGES 45-75) - COLON CA SCREENING 1978 COLON MONITORING 1978 COLONOSCOPY - COLON CA SCREENING 1978 CT COLONOGRAPHY - COLON CA SCREENING 1978 Colorectal Cancer Screening 1978 FIT - COLON CA SCREENING 1978 FLEX SIG - COLON CA SCREENING 1978 MAMMOGRAM 1978 HEPATITIS B VACCINE (1 of 3 - 19+ 3-dose series) 1997 PNEUMOCOCCAL VACCINE (2 of 2 - PCV) 12/19/2019 12/18/2018 DIABETES RETINOPATHY SCREENING 03/15/2021 03/15/2019 (Done Outside Per Patient) DIABETES-FOOT EXAM WITH MONOFILAMENT 05/19/2021 05/19/2020, 12/17/2018 DIABETES-HGB A1C 10/12/2021 04/13/2021, 12/2019, 06/02/2019, Additional history exists DIABETES-SERUM CREATININE 05/02/2022 05/02/2021, 10/2019 DEPRESSION SCREENING 07/14/2024 DIABETES - URINE PROTEIN SCREENING 07/14/2024 02/16/2019 COVID-19 VACCINE (3 - season) 2025 12/01/2020, 11/10/2020 INFLUENZA VACCINE (#1) 2025 , 05/19/2020, 04/19/2019 ZOSTER VACCINE (1 of 2) 2028 DTAP/TDAP/TD VACCINES (2 - Td or Tdap) 12/18/2028 12/18/2018 HEPATITIS C SCREENING Completed 05/02/2021 HIV SCREENING Completed 05/02/2021 DIABETES-STATIN Discontinued HIB VACCINE Aged Out No longer eligi ble based on patient's age to complete this topic HPV VACCINE Aged Out No longer eligi ble based on patient's age to complete this topic MENINGOCOCCAL (Group B) VACCINE SHARED DECISION-MAKING Aged Out No longer eligible based on patient's age to complete this topic MENINGOCOCCAL GROUPS A/C/Y/W VACCINE Aged Out No longer eligible based on patient's age to complete this topic Procedures Procedure Name Priority Date/Time Associated Diagnosis Comments BASIC METABOLIC PANEL (CALCIUM TOTAL) Routine 05/02/2021 4:30 PM CDT Essential hypertension HEPATITIS C AB SCREEN RFLX NAAT QUANT Routine 05/02/2021 4:30 PM CDT Healthcare maintenance HIV-1 HIV-2 ANTIBODY + HIV P24 AG PANEL Routine 05/02/2021 4:30 PM CDT Healthcare maintenance HEMOGLOBIN A1C - POINT OF CARE (AMB) [facility] Routine 04/13/2021 Type 2 diabetes mellitus with hyperosmolarity without coma, without long-term current use of insulin MICROALB/CREAT RATIO URINE RANDOM PANEL Routine 02/16/2019 1:32 PM CDT Type 2 diabetes mellitus with hyperosmolarity without coma, without long-term current use of insulin from Last 3 Months or Most Recently Relevant to Health Maintenance Results * HEPATITIS C AB SCREEN RFLX NAAT QUANT (05/02/2021 4:30 PM CDT) Hepatitis C Antibody Non-react kan Non-reac tive 05/02/2021 7:24 PM CDT [facility] Comment:Hepatitis C Antibody screen indicates no serologic evidence of past or current infection with Hepatitis C Virus. Patients with unexplained liver disease who are immunocompromised or suspected of having acute Hepatitis C infection may benefit from Nucleic Acid Test (MARKEL) for Hepatitis C Viral RNA to confirm Hepatitis C status. Blood BLOOD SPECIMEN / Unknown Lab Venipuncture / Unknown 05/02/2021 4:30 PM CDT 05/02/2021 5:12 PM CDT Roni Hernandez MD LAB - CHEMISTRY ORDERABLES Fi nal Result [facility] [address] [place] [id number], [facility] [phone] * HIV-1 HIV-2 ANTIBODY + HIV P24 AG PANEL (05/02/2021 4:30 PM CDT) Pathologist [facility] HIV Antigen/Antibod y 1 & 2 Non-reacti ve Non-react kan 05/02/2021 7:24 PM CDT [facility] Comment:Neither HIV-1 p24 An tigen nor HIV-1/HIV-2 Antibodies are detected. Blood BLOOD SPECIMEN / Unknown Lab Venipuncture / Unknown 05/02/2021 4:30 PM CDT 05/02/2021 5:12 PM CDT us Roni Hernandez MD LAB - CHEMISTRY ORDERABLES Fi nal Result [facility] [address] [place] [phone], [facility] [phone] * (ABNORMAL) BASIC METABOLIC PANEL (CALCIUM TOTAL) (05/02/2021 4:30 PM CDT) Pathologist [facility] BUN 13 7 - 26 mg/dL 05/02/2021 5:47 PM [facility] Creatinine 0.81 0.56 - 0.96 mg/dL 05/02/2021 5:47 PM [facility] Sodium 140 136 - 145 mmol/L 05/02/2021 5:47 PM [facility] Potassium 4.2 3.5 - 4.5 mmol/L 05/02/2021 5:47 PM [facility] Chloride 103 98 - 107 mmol/L 05/02/2021 5:47 PM [facility] CO2 27 22 - 29 mmol/L 05/02/2021 5:47 PM [facility] Glucose 97 70 - 115 mg/dL 05/02/2021 5:47 PM [facility] Calcium 9.3 8.4 - 10.2 mg/dL 05/02/2021 5:47 PM [facility] Anion Gap 14 8 - 18 05/02/2021 5:47 PM [facility] BUN/Creatinine Ratio 16 7 - 23 05/02/2021 5:47 PM [facility] Osmolality Calculated 290 270 - 300 mOsm/kg 05/02/2021 5:47 PM [facility] eGFR by CKD-EPI 89(L) >=90 mL/min/1.7 3 m2 05/02/2021 5:47 PM CDT [facility] Blood BLOOD SPECIMEN / Unknown Lab Venipuncture / Unknown 05/02/2021 4:30 PM CDT 05/02/2021 5:18 PM CDT Roni Hernandez MD LAB - CHEMISTRY ORDERABLES Fi nal Result [facility] [address] [place] [address], [place] [phone] * HEMOGLOBIN A1C - POINT OF CARE (AMB) [facility] (04/13/2021) Hemoglobin A1c POCT 6.8 % BLOOD SPECIMEN / Unknown 04/13/2021 Roni Hernandez MD LAB - POINT OF CARE ORDERABLE S Final Result * MICROALB/CREAT RATIO URINE RANDOM PANEL (02/16/2019 1:32 PM CDT) Albumin Random Urine 7.0 Not Established mcg/mL 02/16/2019 3:14 PM CDT [facility] Creatinine Urine 119 Not Established mg/dL 02/16/2019 3:14 PM CDT [facility] Comment: Result obtained by dilution. Urine Albumin/Creati nine Ratio 6 <30 mg/g 02/16/2019 3:14 PM CDT [facility] Urine URINE SPECIMEN OBTAINED BY CLEAN CATCH PROCEDURE / Unknown Collection / Unknown 02/16/2019 1:32 PM CDT 02/16/2019 1:57 PM CDT Kay Washington MANAGER [employer] LAB - URINE CHEMISTRY OR DERABLES Final Result [facility] [address] [place] [address], [facility] [phone] from Last 3 Months or Most Recently Relevant to Health Maintenance Insurance [facility] C[facility] [employer] Member Subscriber Plan / Payer (Ef fective 2018-Present) Name:Aminah Murray R Relation to Subscriber:Self Name:AMINAH MURRAY Yunior Payer ID:[id number] (NAIC) Type:HMO Address: [address] [facility] Member Subscriber Plan / Payer (Ef fective 2018-Present) Name:Aminah Murray R Relation to Subscriber:Self Name:AMINAH MURRAY Yunior Payer ID:[id number] (NAIC) Type:HMO Address: [address] CARE Member Subscriber Plan / Payer (Ef fective 2018-Present) Name:Aminah Murray R Relation to Subscriber:Self Name:AMINAH MURRAY Yunior Payer ID:[id number] (NAIC) Type:HMO Address: [address] CARE [employer] Member Subscriber Plan / Payer (Ef fective 2018-Present) Name:Aminah Murray R Relation to Subscriber:Self Name:AMINAH MURRAY Payer ID:[id number] (NAIC) Type:HMO Address: [address] [facility] Member Subscriber Plan / Payer (Ef fective 2018-Present) Name:Aminah Murray R Relation to Subscriber:Self Name:AMINAH MURRAY Yunior Payer ID:[id number] (NAIC) Type:O Address: [address] CARE Member Subscriber Plan / Payer (Ef fective 2018-Present) Name:Aminah Murray R Relation to Subscriber:Self Name:AMINAH MURRAY Yunior Payer ID:[id number] (NAIC) Type:O Address: [address] CARE Member Subscriber Plan / Payer (Ef fective 2018-Present) Name:Aminah Murray R Relation to Subscriber:Self Name:AMINAH MURRAY Yunior Payer ID:[id number] (NAIC) Type:HMO Address: [address] [facility] Member Subscriber Plan / Payer (Ef fective 2018-Present) Name:Aminah Murray R Relation to Subscriber:Self Name:MURRAYAMINAH AGUAYO Yunior Payer ID:[id number] (NAIC) Type:HMO Address: [address] [facility] Member Subscriber Plan / Payer (Ef fective 2018-Present) Name:Terri Aminah R Relation to Subscriber:Self Name:MURRAYAMINAH Mojica Payer ID:[id number] (NAIC) Type:HMO Address: [address] [facility] Member Subscriber Plan / Payer (Ef fective 2018-Present) Name:Aminah Murray R Relation to Subscriber:Self Name:AMINAH MURRAY Payer ID:[id number] ([facility]) Type:HMO Address: [address] [facility] Member Subscriber Plan / Payer (Ef fective 2018-Present) Name:Aminah Murray Relation to Subscriber:Self Name:AMINAH MURRAY Payer ID:[id number] (IC) Type:HMO Address: [address] [facility] Member Subscriber Plan / Payer (Ef fective 2018-Present) Name:Aminah Murray R Relation to Subscriber:Self Name:AMINAH MURRAY Payer ID:[id number] (NAIC) Type:HMO Address: [address] [facility] Member Subscriber Plan / Payer (Ef fective 2018-Present) Name:Aminah Murray R Relation to Subscriber:Self Name:AMINAH MURRAY Payer ID:[id number] (NAIC) Type:HMO Address: [address] [facility] Member Subscriber Plan / Payer ( fective 2018-Present) Name:Aminah Murray R Relation to Subscriber:Self Name:AMINAH MURRAY Payer ID:[id number] (NAIC) Type:HMO Address: [address] [facility] Member Subscriber Plan / Payer ( fective 2018-Present) Name:Aminah Murray R Relation to Subscriber:Self Name:AMINAH MURRAY Payer ID:[id number] (NAIC) Type:HMO Address: [address] [facility] Member Subscriber Plan / Payer ( fective 2018-Present) Name:Aminah Murray R Relation to Subscriber:Self Name:AMINAH MURRAY Payer ID:[id number] (NAIC) Type:HMO Address: [address] [facility] Member Subscriber Plan / Payer ( fective 2018-Present) Name:Aminah Murray Yunior Relation to Subscriber:Self Name:AMINAH MURRAY Yunior Payer ID:[id number] (NAIC) Type:HMO Address: [address] [facility] Member Subscriber Plan / Payer (Ef fective 2018-Present) Name:Aminah Murray R Relation to Subscriber:Self Name:AMINAH MURRAY Yunior Payer ID:[id number] ([facility]) Type:HMO Address: [address] [facility] Member Subscriber Plan / Payer (Ef fective 2018-Present) Name:Aminah Murray Relation to Subscriber:Self Name:AMINAH MURRAY Payer ID:[id number] ([facility]) Type:HMO Address: [address] [facility] Member Subscriber Plan / Payer (Ef fective 2018-Present) Name:Aminah Murray Relation to Subscriber:Self Name:TERRIAMINAH Yunior Payer ID:[id number] ([facility]) Type:HMO Address: [address] [facility] Member Subscriber Plan / Payer (Ef fective 2018-Present) Name:Aminah Murray R Relation to Subscriber:Self Name:AMINAH MURRAY Payer ID:[id number] ([facility]) Type:HMO Address: [address] [facility] Member Subscriber Plan / Payer (Ef fective 2018-Present) Name:Aminah Murray R Relation to Subscriber:Self Name:AMINAH MURRAY Payer ID:[id number] (NAIC) Type:HMO Address: [address] [facility] Member Subscriber Plan / Payer ( fective 2018-Present) Name:Aminah Murray R Relation to Subscriber:Self Name:AMINAH MURRAY Payer ID:[id number] (NAIC) Type:HMO Address: [address] CARE Member Subscriber Plan / Payer ( fective 2018-Present) Name:Aminah Murray R Relation to Subscriber:Self Name:AMINAH MURRAY Payer ID:[id number] (NAIC) Type:HMO Address: [address] CARE Member Subscriber Plan / Payer ( fective 2018-Present) Name:Aminah Murray Relation to Subscriber:Self Name:AMINAH MURRAY Yunior Payer ID:[id number] (NAIC) Type:HMO Address: [address] [facility] Member Subscriber Plan / Payer ( fective 2018-Present) Name:Aminah Murray R Relation to Subscriber:Self Name:AMINAH MURRAY Yunior Payer ID:[id number] (NAIC) Type:HMO Address: [address] [facility] Member Subscriber Plan / Payer (Ef fective 2018-Present) Name:Aminah Murray R Relation to Subscriber:Self Name:AMINAH MURRAY Payer ID:[id number] (NAIC) Type:HMO Address: [address] [facility] Member Subscriber Plan / Payer (Ef fective 2018-Present) Name:Aminah Murray R Relation to Subscriber:Self Name:AMINAH MURRAY Payer ID:[id number] (NAIC) Type:HMO Address: [address] [facility] Member Subscriber Plan / Payer (Ef fective 2018-Present) Name:Aminah Murray R Relation to Subscriber:Self Name:AMINAH MURRAY Payer ID:[id number] (NAIC) Type:HMO Address: [address] [facility] Member Subscriber Plan / Payer (Ef fective 2018-Present) Name:Aminah Murray R Relation to Subscriber:Self Name:AMINAH MURRAY Payer ID:[id number] (NAIC) Type:HMO Address: [address] [facility] Member Subscriber Plan / Payer (Ef fective 2018-Present) Name:Aminah Murray Relation to Subscriber:Self Name:AMINAH MURRAY Yunior Payer ID:[id number] (NAIC) Type:HMO Address: [address] [facility] Member Subscriber Plan / Payer (Ef fective 2018-Present) Name:Aminah Murray R Relation to Subscriber:Self Name:AMINAH MURRAY Yunior Payer ID:[id number] (NA) Type:HMO Address: [address] [facility] Member Subscriber Plan / Payer (Ef fective 2018-Present) Name:Aminah Murray R Relation to Subscriber:Self Name:AMINAH MURRAY Yunior Payer ID:[id number] (NAIC) Type:HMO Address: [address] CARE Member Subscriber Plan / Payer (Ef fective 2018-Present) Name:Aminah Murray R Relation to Subscriber:Self Name:AMINAH MURRAY Yunior Payer ID:[id number] (NAIC) Type:HMO Address: [address] CARE Member Subscriber Plan / Payer (Ef fective 2018-Present) Name:MurrayAminah R Relation to Subscriber:Self Name:MURRAY,AMINAH Yunior Payer ID:[id number] (NAIC) Type:HMO Address: [address] [facility] Member Subscriber Plan / Payer (Ef fective 2018-Present) Name:Murray, Aminah R Relation to Subscriber:Self Name:AMINAH MURRAY Yunior Payer ID:[id number] (NAIC) Type:HMO Address: [address] [facility] Member Subscriber Plan / Payer (Ef fective 2020-Present) Name:Aminah Mruray R Relation to Subscriber:Self Name:AMINAH MURRAY Payer ID:[id number] (NAIC) Type:O Address: [address] [facility] Member Subscriber Plan / Payer (Ef fective 2020-Present) Name:Aminah Murray R Relation to Subscriber:Self Name:AMINAH MURRAY Payer ID:[id number] (NAIC) Type:O Address: [address] [facility] Member Subscriber Plan / Payer (Ef fective 2020-Present) Name:Aminah Murray Relation to Subscriber:Self Name:AMINAH MURRAY Payer ID:[id number] (NAIC) Type:HMO Address: [address] [facility] MEDICAID - OUT OF STATE MEDICAID - OUT OF STATE MEDICAID - OUT OF PENDING SALE TO [facility] MEDICAID - OUT OF STATE Care Teams Health Sciences Program Coordinator Relationship Specialty Start Date End Date Roni Hernandez MD [address] [address] PCP - General 04/05/21 Cherrie Prince MD [address] [place] [address] Resident - PCP 05/25/20
[2025-05-12 11:44] VITALS: BP 170/117; PULSE 86; RESP 20; TEMP 37.2; O2SAT 99
[2025-05-12 11:46] LABS: Add Urine Microscopic? YES; Appearance Urine Cloudy (Clear); Glucose Urine UA Trace mg/dL (Negative); Leukocyte Esterase Ur Negative LEU/UL (Negative); Nitrate Urine Negative (Negative); Non Pathogenic Casts 0-2; Specific Grav Ur 1.028 (1.001-1.035)
[2025-05-12 12:01] LABS: Alanine Aminotransferase 23 U/L (6-35); Albumin Level 4.6 g/dL (3.5-5.1); Alkaline Phosphatase 97 U/L (38-126); Anion Gap 9 mmol/L (4-12); Aspartate Amino Transferase 30 U/L (14-36); Bilirubin,Total 0.7 mg/dL (0.2-1.3); Blood Urea Nitrogen 16 mg/dL (7-17); Calcium 8.8 mg/dL (8.4-10.2); Carbon Dioxide 22 mmol/L (22-30); Chloride 104 mmol/L (98-107); Estimated CRCL calculation 108 ml/min; Estimated Glomerular Filt Rate > 60; Glucose 215 mg/dL (65-110); Lipase 86 U/L (23-300); Sodium 135 mmol/L (137-145); Total Protein 7.9 g/dL (6.3-8.2)
[2025-05-12 12:05] VITALS: BP 159/113; PULSE 80; RESP 16; O2SAT 100
[2025-05-12 12:08] LABS: Potassium 3.8 mmol/L (3.4-5.0)
--- NOTE | 2025-05-12 12:09 | ED.NAVMDI ---
HPI - Nausea/Vomiting/Diarrhea General Chief complaint: Nausea/Vomiting/Diarrhea Stated complaint: i cant stop puking Time Seen by Provider: 05/12/25 12:06 Source: patient Mode of arrival: ambulatory Limitations: no limitations History of Present Illness HPI Narrative: 45 YEARS OLD WHITE FEMALE CAME TO THE ED FROM HOME BY PRIVATE CAR COMPLAINING OF NAUSEA, VOMITING AND DIARRHEA OVER THE LAST 4 DAYS. PATIENT IS TELLING ME HER VOMITING ON AVERAGE 3 TO 5 TIMES A DAY, DIARRHEA IS A LOT OF FROTHY WATERY STOOL OF. PATIENT DENIES SICK CONTACT, NO FAMILY MEMBER HAVING SIMILAR SYMPTOMS. 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 SHE DENIES ANY FEVER OR CHILLS. PATIENT REPORT ASSOCIATED ABDOMINAL PAIN. SYMPTOM WORSE WITH EATING OR DRINKING, NO ALLEVIATING FACTOR. HISTORY OF HYPERTENSION, ASTHMA, DEPRESSION, ANXIETY, BLADDER CANCER LAST CHEMOTHERAPY 7 WEEKS AGO AT [facility]. HISTORY OF CHOLECYSTECTOMY AND HYSTERECTOMY. PATIENT SMOKES CIGARETTES, DRINK OCCASIONALLY, DENIES DRUG USE OR ABUSE. PATIENT DENIES ANY RECENT ANTIBIOTIC INTAKE. Related Data Home Medications ?Medication ?Instructions ?Recorded ?Confirmed ?Last Taken ?Type losartan 100 1 tablet PO DAILY 06/08/22 10/19/23 Unknown History mg-hydrochlorothiazide 25 mg tablet semaglutide 0.25 mg or 0.5 mg (2 0.25 mg subcut DIRECTED 04/25/23 10/19/23 Unknown History mg/3 mL) subcutaneous pen injector (Ozempic) atorvastatin 20 mg tablet 20 mg PO DAILY 10/19/23 10/19/23 Unknown History dextroamphetamine-amphetamine ER 25 mg PO DAILY 10/19/23 10/19/23 Unknown History 25 mg 24hr capsule,extend release duloxetine 30 mg capsule,delayed 30 mg PO DAILY 10/19/23 10/19/23 Unknown History release pantoprazole 40 mg tablet,delayed 40 mg PO DAILY 10/19/23 10/19/23 Unknown History release topiramate 100 mg tablet 100 mg PO BID 10/19/23 10/19/23 Unknown History carvedilol 6.25 mg tablet mg 03/01/25 Unknown History dextroamphetamine-amphetamine ER PO 03/01/25 Unknown History 30 mg 24hr capsule,extend release duloxetine 60 mg capsule,delayed mg PO 03/01/25 Unknown History release lorazepam 1 mg tablet mg 03/01/25 Unknown History Allergies Allergy/AdvReac Type Severity Reaction Status Date / Time Sulfa (Sulfonamide AdvReac Intermediate Nausea and Verified 05/12/25 12:39 Antibiotics) Vomiting Review of Systems Review of Systems: All systems reviewed & are unremarkable except as noted in HPI and below PMFSH Past Medical History Medical History Acute viral syndrome Anemia Anxiety Hypothyroidism Diabetes Endometriosis GERD (gastroesophageal reflux disease) Tuberculosis Exposed to TB at age 4, took medication Pneumonia Bronchitis Asthma Hypertension Pericarditis Seizures Tonsillitis Surgical History Surgical History H/O: hysterectomy History of cholecystectomy Hx of tonsillectomy Family History Family History Mother Family history of malignant neoplasm of breast in first degree relative Father Family history of malignant neoplasm of esophagus Sibling Family history of malignant neoplasm of esophagus Social History Social History Alcohol intake: current Living arrangements: with family Gender identity (if verbalized by the patient): Female Sexual Orientation (if Verbalized by the Patient): Straight or Heterosexual Spiritual care concerns: No Exam Narrative: GENERAL APPEARANCE: WELL-DEVELOPED, WELL-NOURISHED, RESTLESS SKIN: NORMAL COLOR HEAD: NORMOCEPHALIC, NONTRAUMATIC EYES: CLEAR CONJUNCTIVA ENT: OROPHARYNX NORMAL, EARS NORMAL, NOSE NORMAL NECK: SUPPLE, NONTENDER CHEST AND RESPIRATORY: AIRWAY PATENT, NO RESPIRATORY DISTRESS, NO ACCESSORY MUSCLE USE HEART: REGULAR RATE/RHYTHM ABDOMEN: SOFT, DIFFUSE MILD TENDERNESS, NO GUARDING OR REBOUND, NO ORGANOMEGALY, ACTIVE BOWEL SOUNDS VASCULAR: NORMAL PERIPHERAL PULSES, NORMAL CAPILLARY REFILL. MUSCULOSKELETAL: NORMAL RANGE OF MOTION, NONTENDER BACK NEUROLOGIC: ALERT AND ORIENTED ?3, HEAVY EQUIPMENT TECHNICIAN IS NORMAL TESTED, NO GROSS MOTOR DEFICIT Course Vital Signs Vital signs: Vital Signs Temperature 36.4 C 05/12/25 10:49 Pulse Rate 91 05/12/25 10:49 Respiratory Rate 18 05/12/25 10:49 Blood Pressure 150/101 H 05/12/25 10:49 Pulse Oximetry 99 05/12/25 10:49 Oxygen Delivery Room Air 05/12/25 10:49 Temperature 37.2 C 05/12/25 11:44 Pulse Rate 80 05/12/25 12:05 Respiratory Rate 16 05/12/25 12:05 Blood Pressure 159/113 H 05/12/25 12:05 Pulse Oximetry 100 05/12/25 12:05 Oxygen Delivery Room Air 05/12/25 10:49 MDM - Nausea/Vomiting/Diarrhea MDM Narrative Medical decision making narrative: PATIENT PRESENTS WITH NAUSEA, VOMITING AND DIARRHEA VITAL SIGNS SHOWING BLOOD PRESSURE 150/101 OTHERWISE WITHIN NORMAL LIMIT PHYSICAL EXAMINATION SHOWING RESTLESS PATIENT WITH DIFFUSE MILD ABDOMINAL TENDERNESS, PATIENT IS 132.5 KG. DIFFERENTIAL DIAGNOSIS INCLUDE GASTROENTERITIS, DEHYDRATION, ELECTROLYTE IMBALANCE, COLITIS, ILEITIS, DIVERTICULITIS, URINARY TRACT INFECTION, PANCREATITIS BLOOD WORKUP TODAY INCLUDES CBC, CMP, LIPASE SHOWED WBC 13.1, PLATELET 417, GLUCOSE 215, OTHERWISE WITHIN NORMAL LIMIT URINALYSIS SHOWED INSIGNIFICANT ABNORMALITIES CT ABDOMEN AND PELVIS WITH IV CONTRAST SHOWED FLUID IN THE COLON CONSISTENT WITH NONSPECIFIC DIARRHEA. NO OTHER ACUTE INTRA-ABDOMINAL/PELVIC PROCESS. STOOL SAMPLE OBTAINED DIAGNOSIS GASTROENTERITIS DISCHARGED ON IMODIUM FOLLOW-UP WITH WAFER CUTTER THE PT WAS DISCHARGED TO HOME.THE PT,S CONDITION UPON DISCHARGE WAS FAIR,EDUCATION WAS PROVIDED TO THE PT IN REFERENCE TO THE FINAL IMPRESSION,DISCHARGE STUDY RESULTS,TREATMENT,PROGNOSIS AND NEED FOR FOLLOW UP . Differential Diagnosis Differential diagnosis: Likely other ( ABOVE) Medical Records Attestation: I reviewed the patient's medical records. Lab Data Attestation: I reviewed the patient's lab results. 05/12/25 11:34 05/12/25 11:34 Labs: Lab Results 05/12/25 05/12/25 05/12/25 Range/Units 11:34 11:38 14:00 WBC 13.1 H (4.5-10.0) K/mm3 RBC 5.60 H (4.2-5.4) M/mm3 Hgb 14.6 (12.0-15.0) g/dL Hct 45.6 (37.0-47.0) % MCV 81.4 (80-100) fl MCH 26.1 (26-34) pg MCHC 32.0 (32-36) g/dl RDW 14.0 (11.5-14.5) % Plt Count 417 H (150-375) k/mm3 MPV 9.0 (7.4-10.4) fl Immature Gran % (Auto) 0.4 (0-0.5) % Neut % (Auto) 75.5 H (45.5-73.1) % Lymph % (Auto) 13.8 L (18.3-44.2) % [place] % (Auto) 9.3 H (2.6-8.5) % Eos % (Auto) 0.8 (0-4.4) % Baso % (Auto) 0.2 (0.2-1.2) % Lymph # (Auto) 1.81 (0.9-3.2) K/mm3 [place] # (Auto) 1.2 H (0.1-0.6) K/mm3 Eos # (Auto) 0.1 (0-0.3) K/mm3 Baso # (Auto) 0.0 (0.0-0.1) K/mm3 Abs Immat Gran (auto) 0.05 H (0.00-0.031) K/mm3 Absolute Neuts (auto) 9.9 H (1.3-6.7) K/mm3 Absolute Nucleated RBC 0.000 (0.0-0.012) K/mm3 Nucleated RBC % 0.0 (0.0-0.2) % Sodium 135 L (137-145) mmol/L Potassium 3.8 (3.4-5.0) mmol/L Chloride 104 (98-107) mmol/L Carbon Dioxide 22 (22-30) mmol/L Anion Gap 9 (4-12) mmol/L BUN 16 (7-17) mg/dL Creatinine 0.76 (0.7-1.0) mg/dL Estim Creat Clear Calc 108 ml/min Estimated GFR > 60 (59 - ) Glucose 215 H (65-110) mg/dL Calcium 8.8 (8.4-10.2) mg/dL Total Bilirubin 0.7 (0.2-1.3) mg/dL AST 30 (14-36) U/L ALT 23 (6-35) U/L Alkaline Phosphatase 97 (38-126) U/L Total Protein 7.9 (6.3-8.2) g/dL Albumin 4.6 (3.5-5.1) g/dL Lipase 86 (23-300) U/L Urine Color Yellow (Yellow) Urine Appearance Cloudy H (Clear) Urine pH 6.0 (5.0-9.0) Ur Specific Timber 1.028 (1.001-1.035) Urine Protein 1+ H (Negative) mg/dL Urine Glucose (UA) Trace H (Negative) mg/dL Urine Ketones Trace H (Negative) mg/dL Ur Blood (Man) Negative (Negative) Urine Nitrate Negative (Negative) Urine Bilirubin Negative (Negative) Urine Urobilinogen 1.0 (<2.0) mg/dL Leukocyte Esterase Rfl Negative (Negative) AUSTEN/UL Urine RBC 3-5 H (0-2) /hpf Urine WBC 0-5 (0-3) /hpf Ur Squamous Epith Cells Moderate (Few) /hpf Urine Bacteria Rare /hpf Urine Casts 0-2 POC Urine HCG, Qual Negative (Negative) C. difficile (PCR) Pending Stool Norovirus GI (PCR) Pending Stool Norovirus GII (PCR) Pending Imaging Data Radiologist's impression: Impressions Abdomen/Pelvis CT 05/12/25 13:14 IMPRESSION: 1. Fluid in the colon consistent with nonspecific diarrhea. No other acute intra-abdominal/pelvic process. Critical Care Time Critical Care Time Critical Care Time: Yes Total Critical Care Time: 30 Discharge Plan Discharge Clinical Impression: Gastroenteritis Patient Disposition: Home Condition: Stable Instructions: Gastroenteritis (ED) Additional Instructions: RETURN IF SYMPTOMS ARE WORSENING , CALL YOUR FAMILY PHYSICIAN/WAFER CUTTER FOR APPOINTMENT, TAKE TYLENOL NEEDED FOR ACHES AND PAIN, CONTINUE HOME MEDICATIONS. GET DEGD-XZE-ESYSOGS IMODIUM Patient Language: Lithuanian Prescriptions: No Action losartan-hydrochlorothiazide 100-25 mg tablet 1 tablet PO DAILY Ozempic 0.25 mg or 0.5 mg (2 mg/3 mL) pen injector 0.25 mg SUBCUT DIRECTED atorvastatin 20 mg tablet 20 mg PO DAILY pantoprazole 40 mg tablet,delayed release (DR/EC) 40 mg PO DAILY topiramate 100 mg tablet 100 mg PO BID dextroamphetamine-amphetamine 25 mg capsule,extended release 24hr 25 mg PO DAILY duloxetine 30 mg capsule,delayed release(DR/EC) 30 mg PO DAILY carvedilol 6.25 mg tablet lorazepam 1 mg tablet dextroamphetamine-amphetamine 30 mg capsule,extended release 24hr PO duloxetine 60 mg capsule,delayed release(DR/EC) PO methylprednisolone [Medrol (Ricki)] 4 mg tablets,dose pack See Rx Instructions .ROUTE .COMPLEX Qty: 21 0RF Rx Instructions: orally per package directions amoxicillin-pot clavulanate 875-125 mg tablet 1 tablet PO Q12H 10 Days Qty: 20 0RF meclizine 25 mg tablet 25 mg PO BID PRN (Reason: dizziness) Qty: 20 0RF ondansetron 4 mg tablet,disintegrating 4 mg PO Q8H PRN (Reason: nausea and vomiting) Qty: 20 0RF diazepam [Valium] 2 mg tablet 2 mg PO BID PRN (Reason: vertigo) Qty: 10 0RF hydrocodone-acetaminophen 5-325 mg tablet 1 tablet PO Q6H PRN (Reason: pain (scale score 4-6)) Qty: 2 0RF dicyclomine 10 mg capsule 10 mg PO TID Qty: 14 0RF Follow-up/Referrals: PHYSICIAN,TODDLER GUIDE [Primary Care Provider, Internal Medicine] Dereck Vance MD [Physician, Gastroenterology] - 05/16/25 Stand Alone Forms: Work/School Release IP
[2025-05-12] MEDS: SODIUM CHLORIDE 0.9% IV 2,000 ML 999 ML IV CONT (12:39)
[2025-05-12] MEDS: ONDANSETRON INJ 4 MG/2 ML VIAL 8 MG IV PUSH (12:40)
[2025-05-12] MEDS: fentaNYL CITRATE INJ (*CRX) 100 MCG/2 ML VIAL 50 MCG IV PUSH (12:41)
--- OUTSIDE RECORDS SUMMARY | 2025-05-12 13:04 | XMS_ITS | Encounter Summary ---
Author Organization [facility] Address [address] [place] [address] Care Team Providers Care Fertilizer Applicator Name Role Phone Kay Washington GRADES 1 THROUGH 5 TEACHER-YOUTH CARE PROFESSIONAL Primary Care Provider + Sera Zaman DO Primary Care Provider [phone] Kay Washington GRADES 1 THROUGH 5 TEACHER-YOUTH CARE PROFESSIONAL Primary Care Provider + Sera Zaman DO Primary Care Provider [phone] Kay Washington GRADES 1 THROUGH 5 TEACHER-YOUTH CARE PROFESSIONAL Primary Care Provider + Yuliana Coffey GRADES 1 THROUGH 5 TEACHER-YOUTH CARE PROFESSIONAL Primary Care Provider + Kay Washington GRADES 1 THROUGH 5 TEACHER-YOUTH CARE PROFESSIONAL Primary Care Provider + Cherrie Prince MD Primary Care Provider [phone] Cherrie Prince MD Primary Care Provider [phone]- [phone] Cherrie Prince MD Unavailable Roni Hernandez MD Primary Care Provider [phone] Reason for Visit * Reason Onset Date Comments Future Appointment 02/05/2019 Encounter Details Date Type Department Care Team (Late st Contact Info) Description 02/05/2019 Telephone [facility] [address] [place] [address] Jumana Alvarez MD [address] [place] [id number] Future Appointment Social History Tobacco Use Types Packs/Day Years Used Date Smoking Tobacco: Never Smokeless Tobacco: Never Alcohol Use Standard Drinks/Week Comments Yes 0 (1 standard drink = 0.6 oz pur e alcohol) Comments Unknown Sex and Gender Information Value Date Recorded Sex Assigned at Not on file Legal Sex Female 7:49 AM CONDUCTOR YARD Gender Identity Not on file Sexual Orientation Not on file Occupation Industry 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 with contact info documented in this encounter Plan of Treatment Not on file documented as of this encounter Visit Diagnoses Not on filedocumented in this encounter Additional Health Concerns Infection Onset Date Last Indicated Resolved Time COVID-19 Under Investigation 10/12/2019 10/12/2019 10/13/2019 12:17 AM CDT COVID-19 Under Investigation 06/02/2020 06/02/2020 06/03/2020 4:33 PM CONDUCTOR YARD COVID-19 Confirmed 06/02/2020 06/02/2020 0 4:34 AM CONDUCTOR YARD COVID-19 Under Investigation 08/14/2020 08/14/2020 08/14/2020 4:37 PM CONDUCTOR YARD COVID-19 Under Investigation 03/09/2021 03/09/2021 03/09/2021 6:30 PM CDT documented as of this encounter Care Teams Fertilizer Applicator Relationship Specialty Start Date End Date Kay Washington APRN-YOUTH CARE PROFESSIONAL PCP - General Nurse Practitioner Family 02/22/1903/15 Sera Zaman DO PCP - General 04/14/19 04/14/19 Kay Washington, GRADES 1 THROUGH 5 TEACHER-YOUTH CARE PROFESSIONAL PCP - General Nurse Practitioner [facility] 04/15/1904/18/19 Sera Zaman, DO PCP - General 04/19/19 05/12/19 Kay Washington, GRADES 1 THROUGH 5 TEACHER-YOUTH CARE PROFESSIONAL PCP - General 05/13/19 05/26/19 Yuliana Coffey, GRADES 1 THROUGH 5 TEACHER-YOUTH CARE PROFESSIONAL [address] [place] [address] PCP - General 05/27/19 05/30/19 Kay Washington, GRADES 1 THROUGH 5 TEACHER-YOUTH CARE PROFESSIONAL PCP - General 05/31/19 07/19/19 [place] [address] [place] [address] PCP - General 07/20/19 05/24/20 Cherrie Prince MD [address] [place] [address] PCP - General 05/25/20 04/04/21 Roni Hernandez MD [address] [place] [address] PCP - General 04/05/21 Cherrie Prince MD [address] [place] [address] Resident - PCP 05/25/20 documented as of this encounter
--- OUTSIDE RECORDS SUMMARY | 2025-05-12 13:04 | XMS_ITS | Encounter Summary ---
Author Organization [facility] Address [address] [place] [address] Care Team Providers Care Inspector Precision Assembly Name Role Phone Kay Washington GLAZIER STRUCTURAL GLASS-TELETYPIST Primary Care Provider + Kay Washington GLAZIER STRUCTURAL GLASS-TELETYPIST Primary Care Provider + Sera Zaman DO Primary Care Provider [phone] Kay Washington GLAZIER STRUCTURAL GLASS-TELETYPIST Primary Care Provider + Sera Zaman DO Primary Care Provider [phone] Kay Washington GLAZIER STRUCTURAL GLASS-TELETYPIST Primary Care Provider + Yuliana Coffey GLAZIER STRUCTURAL GLASS-TELETYPIST Primary Care Provider + Kay Washington GLAZIER STRUCTURAL GLASS-TELETYPIST Primary Care Provider + Cherrie Prince MD Primary Care Provider [phone] Cherrie Prince MD Primary Care Provider [phone]- [phone] Cherrie Prince MD Unavailable [phone] Roni Hernandez MD Primary Care Provider Reason for Visit * Reason Onset Date Comments MEDICATION REFILL 12/29/2018 refill request Encounter Details Date Type Department Care Team (Late st Contact Info) Description 12/29/2018 Refill [facility] [address] [place] [address] Kay Washington, GLAZIER STRUCTURAL GLASS-TELETYPIST [address] [place] [address] MEDICATION REFILL (refill request ) Social History Tobacco Use Types Packs/Day Years Used Date Smoking Tobacco: Never Smokeless Tobacco: Never Alcohol Use Standard Drinks/Week Comments Yes 0 (1 standard drink = 0.6 oz pur e alcohol) Comments Unknown Sex and Gender Information Value Date Recorded Sex Assigned at Not on file Legal Sex Female 7:49 AM HOT BLAST WORKER Gender Identity Not on file Sexual Orientation Not on file Occupation Industry Job Start Date Job End Date PMO at [employer] Not on file Not on file [...] Under Investigation 06/02/2020 06/02/2020 06/03/2020 4:33 PM HOT BLAST WORKER COVID-19 Confirmed 06/02/2020 06/02/2020 0 4:34 AM HOT BLAST WORKER COVID-19 Under Investigation 08/14/2020 08/14/2020 08/14/2020 4:37 PM HOT BLAST WORKER COVID-19 Under Investigation 03/09/2021 03/09/2021 03/09/2021 6:30 PM CDT documented as of this encounter Care Teams Inspector Precision Assembly Relationship Specialty Start Date End Date Kay Washington GLAZIER STRUCTURAL GLASS-TELETYPIST PCP - General Nurse Practitioner Family 12/17/1812/12 Kay Washington GLAZIER STRUCTURAL GLASS-TELETYPIST PCP - General Nurse Practitioner Family 02/22/1903/15 Sera Zaman DO PCP - General 04/14/19 04/14/19 Kay Washington GLAZIER STRUCTURAL GLASS-TELETYPIST PCP - General Nurse Practitioner Family 04/15/1904/18/19 Sera Zaman DO PCP - General 04/19/19 05/12/19 Kay Washington GLAZIER STRUCTURAL GLASS-TELETYPIST PCP - General 05/13/19 05/26/19 Yuliana Coffey, GLAZIER STRUCTURAL GLASS-TELETYPIST [address] [place] [address] PCP - General 05/27/19 05/30/19 Kay Washington GLAZIER STRUCTURAL GLASS-TELETYPIST PCP - General 05/31/19 07/19/19 Cherrie Prince MD [address] [place] [address] PCP - General 07/20/19 05/24/20 Cherrie Prince MD [address] [place] [address] PCP - General 05/25/20 04/04/21 Roni Hernandez MD [address] [address] PCP - General 04/05/21 Cherrie Prince MD [address] [place] [address] Resident - PCP 05/25/20 documented as of this encounter
--- OUTSIDE RECORDS SUMMARY | 2025-05-12 13:04 | XMS_ITS | Encounter Summary ---
Author Organization [facility] Address [address] [facility] [place] [address] Care Team Providers Care Phlebotomist Medical Lab Assistant Name Role Phone Sera Zaman DO Primary Care Provider [phone] Kay Washington COMMUNITY OUTREACH DIRECTOR-ELEVATOR REPAIR MECHANIC Primary Care Provider + Sera Zaman DO Primary Care Provider Kay Washington COMMUNITY OUTREACH DIRECTOR-ELEVATOR REPAIR MECHANIC Primary Care Provider + Yuliana Coffey COMMUNITY OUTREACH DIRECTOR-ELEVATOR REPAIR MECHANIC Primary Care Provider + Kay Washington COMMUNITY OUTREACH DIRECTOR-ELEVATOR REPAIR MECHANIC Primary Care Provider + Cherrie Prince MD Primary Care Provider [phone] Cherrie Prince MD Primary Care Provider [phone] Cherrie Prince MD Unavailable Roni Hernandez MD Primary Care Provider [phone] Reason for Visit * Reason Onset Date Comments Fever 03/19/2019 R/O triage 1st a ttempt to contact pt LM Encounter Details Date Type Department Care Team (Late st Contact Info) Description 03/19/2019 Telephone [facility] [address] [facility] [address] [place], [place] [id number] Sera Zaman DO [address] [place] [address] Fever (R/O triage 1st attempt to contact pt LM) Social History Tobacco Use Types Packs/Day Years Used Date Smoking Tobacco: Never Smokeless Tobacco: Never Alcohol Use Standard Drinks/Week Comments Yes 0 (1 standard drink = 0.6 oz pur e alcohol) Comments No Sex and Gender Information Value Date Recorded Sex Assigned at Not on file Legal Sex Female 7:49 AM GAUGE MACHINE OPERATOR Gender Identity Not on file Sexual Orientation Not on file Occupation Industry Job Start Date Job End Date PMO at [employer] Not on file Not on file [...] patient at this time. Left message @ [phone] with affiliation and contact number, , no [...] Under Investigation 06/02/2020 06/02/2020 06/03/2020 4:33 PM GAUGE MACHINE OPERATOR COVID-19 Confirmed 06/02/2020 06/02/2020 4:34 AM GAUGE MACHINE OPERATOR COVID-19 Under Investigation 08/14/2020 08/14/2020 08/14/2020 4:37 PM GAUGE MACHINE OPERATOR COVID-19 Under Investigation 03/09/2021 03/09/2021 03/09/2021 6:30 PM CDT documented as of this encounter Care Teams Phlebotomist Medical Lab Assistant Relationship Specialty Start Date End Date Sera Zaman DO PCP - General 04/14/19 04/14/19 Kay Washington, COMMUNITY OUTREACH DIRECTOR-ELEVATOR REPAIR MECHANIC PCP - General Nurse Practitioner [facility] 04/15/1904/18/19 Sera Zaman DO PCP - General 04/19/19 05/12/19 Kay Washington, COMMUNITY OUTREACH DIRECTOR-ELEVATOR REPAIR MECHANIC PCP - General 05/13/19 05/26/19 Yuliana Coffey COMMUNITY OUTREACH DIRECTOR-ELEVATOR REPAIR MECHANIC [address] [place] [address] PCP - General 05/27/19 05/30/19 Kay Washington APRN-ELEVATOR REPAIR MECHANIC PCP - General 05/31/19 07/19/19 Cherrie Prince MD [address] [place] [address] PCP - General 07/20/19 05/24/20 Cherrie Prince MD [address] [place] [address] PCP - General 05/25/20 04/04/21 Roni Hernandez MD [address] [address] PCP - General 04/05/21 Cherrie Prince MD [address] [place] [address] Resident - PCP 05/25/20 documented as of this encounter
--- OUTSIDE RECORDS SUMMARY | 2025-05-12 13:04 | XMS_ITS | Encounter Summary ---
Author Organization [facility] Address [address] [facility] [place] [address] Care Team Providers Care Drosophere Operator Name Role Phone Kay Washington APRN-SAUSAGE LINKER Primary Care Provider + Cherrie Prince MD Primary Care Provider [phone] Cherrie Prince MD Primary Care Provider [phone] Cherrie Prince MD Unavailable [phone] Roni Hernandez MD Primary Care Provider [phone] Reason for Visit * Reason Onset Date Comments Results 06/15/2019 1st attempt vm Encounter Details Date Type Department Care Team (Late st Contact Info) Description 06/15/2019 Telephone [facility] [address] [address] Kay Washington, RAMONE-SAUSAGE LINKER [address] [place] [address] Results (1st attempt vm) Social History Tobacco Use Types Packs/Day Years Used Date Smoking Tobacco: Never Smokeless Tobacco: Never Alcohol Use Standard Drinks/Week Comments Yes 0 (1 standard drink = 0.6 oz pur e alcohol) Comments No Sex and Gender Information Value Date Recorded Sex Assigned at Not on file Legal Sex Female 7:49 AM MILK RUNNER Gender Identity Not on file Sexual Orientation Not on file Occupation Industry Job Start Date 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 VM left with call back number [phone] RUNNER * Telephone Encounter - Freida Nguyen RN - 06/15/2019 12:44 PM CST ----- Message from KEVIN Andres sent at 06/03/2019 9:50 AM MILK RUNNER ----- Please call and let patient know [...] dinner. The rx was sent. Thank you. RUNNER documented in this encounter Plan of Treatment Not on file documented as of this encounter Visit Diagnoses Not on filedocumented in this encounter Additional Health Concerns Infection Onset Date Last Indicated Resolved Time COVID-19 Under Investigation 10/12/2019 10/12/2019 10/13/2019 12:17 AM CDT COVID-19 Under Investigation 06/02/2020 06/02/2020 06/03/2020 4:33 PM MILK RUNNER COVID-19 Confirmed 06/02/2020 06/02/2020 4:34 AM MILK RUNNER COVID-19 Under Investigation 08/14/2020 08/14/2020 08/14/2020 4:37 PM MILK RUNNER COVID-19 Under Investigation 03/09/2021 03/09/2021 03/09/2021 6:30 PM CDT documented as of this encounter Care Teams Drosophere Operator Relationship Specialty Start Date End Date Kay Washington, SENIOR RUBY DEVELOPER-SAUSAGE LINKER PCP - General 05/31/19 07/19/19 Cherrie Prince MD [address] [place] [address] PCP - General 07/20/19 05/24/20 Cherrie Prince MD [address] [place] [address] PCP - General 05/25/20 04/04/21 Roni Hernandez MD [address] [place] [address] PCP - General 04/05/21 Cherrie Prince MD [address] [place] [address] Resident - PCP 05/25/20 documented as of this encounter
--- OUTSIDE RECORDS SUMMARY | 2025-05-12 13:04 | XMS_ITS | Clinical Summary ---
Author Organization [facility] Address [address] [place] [address] Care Team Providers Care Puller Through Name Role Phone Unavailable Primary Care Provider [...] st Contact Info) Description 07/21/2025 8:10 AM THERAPY TECH Office Visit [facility] Family [facility] [address] [facility] [address] [place] [address] Antonia Lantigua MD [address] [place] [address] Health Maintenance Due Date Last Done Comments [...] patient's age to [place] [address] [facility]
--- OUTSIDE RECORDS SUMMARY | 2025-05-12 13:04 | XMS_ITS | Clinical Summary ---
Author Organization [facility] Address [address] [facility] [place] [address] Care Team Providers Care Amusement Park Ride Mechanic Name Role Phone Cherrie Prince MD Unavailable [phone] Roni Hernandez MD Primary Care Provider [phone] Source Comments [facility],non-owned Affiliates and Associated Physician Practices is amultiple site organization consisting of ambulatory clinics and hospital sitesin [place], [place], [place] and [place]. This disclosure is being madepursuant to the Care Everywhere program and may not contain all information available regarding this patient. Last updated 18.[facility] Allergies Active Allergy Reactions Criticality Noted Date [...] clinical history (patient also previously worked in retirement, does not think this is similar to C diff) Will monitor with treatment of bacterial sinusitis--re-eval at upcoming PCP appointment on 04/19 Encourage PO hydration Recommended patient avoid/minimize dairy Migraine aura without headache 12/17/2018 12/17/2018 Immunizations Immunization Administration Dates Next Due [employer] primary monoval ent 12+ yr 0.3mL Purple [...] on file Legal Sex Female 7:49 AM MANAGER VALIDATION Gender Identity Not on file Sexual Orientation Not on file Occupation Industry Job Start Date Job End Date PMO at [employer] Not on file Not on file Not on file Last Filed Vital Signs Vital Sign Reading Time Taken Comments Blood Pressure 145/92 04/13/2021 12:57 PM CDT Pulse 84 04/13/2021 12:57 PM CDT Temperature 37 C (98.6 F) 04/13/2021 12:57 PM CDT Respiratory Rate 16 06/15/2020 10:04 PM MANAGER VALIDATION Oxygen Saturation 96% 04/13/2021 12:57 PM CDT [...] kan Non-reac tive 05/02/2021 7:24 PM CDT [facility] Comment:Hepatitis C Antibody screen indicates [...] LAB - CHEMISTRY ORDERABLES Fi nal Result [facility] [address] [place] [phone], [facility] [phone] * HIV-1 HIV-2 ANTIBODY + HIV P24 AG PANEL (05/02/2021 4:30 PM CDT) Pathologist [facility] HIV Antigen/Antibod y 1 & 2 Non-reacti ve Non-react kan 05/02/2021 7:24 PM CDT [facility] Comment:Neither HIV-1 p24 An tigen nor HIV-1/HIV-2 Antibodies are detected. Blood BLOOD SPECIMEN / Unknown Lab Venipuncture / Unknown 05/02/2021 4:30 PM CDT 05/02/2021 5:12 PM CDT us Roni Hernandez MD LAB - CHEMISTRY ORDERABLES Fi nal Result [facility] [address] [place] [phone], [facility] [phone] * (ABNORMAL) BASIC METABOLIC PANEL (CALCIUM TOTAL) (05/02/2021 4:30 PM CDT) Pathologist [facility] BUN 13 7 - 26 mg/dL 05/02/2021 5:47 PM [facility] Creatinine 0.81 0.56 - 0.96 mg/dL 05/02/2021 5:47 PM [facility] Sodium 140 136 - 145 mmol/L 05/02/2021 5:47 PM [facility] Potassium 4.2 3.5 - 4.5 mmol/L 05/02/2021 5:47 PM [facility] Chloride 103 98 - 107 mmol/L 05/02/2021 5:47 PM [facility] CO2 27 22 - 29 mmol/L 05/02/2021 5:47 PM [facility] Glucose 97 70 - 115 mg/dL 05/02/2021 5:47 PM [facility] Calcium 9.3 8.4 - 10.2 mg/dL 05/02/2021 5:47 PM [facility] Anion Gap 14 8 - 18 05/02/2021 5:47 PM [facility] BUN/Creatinine Ratio 16 7 - 23 05/02/2021 5:47 PM [facility] Osmolality Calculated 290 270 - 300 mOsm/kg 05/02/2021 5:47 PM [facility] eGFR by CKD-EPI 89(L) >=90 mL/min/1.7 3 m2 05/02/2021 5:47 PM CDT [facility] Blood BLOOD SPECIMEN / Unknown Lab Venipuncture / Unknown 05/02/2021 4:30 PM CDT 05/02/2021 5:18 PM CDT Roni Hernandez MD LAB - CHEMISTRY ORDERABLES Fi nal Result [facility] [address] [place] [address], [place] [phone] * HEMOGLOBIN A1C - POINT OF CARE (AMB) [facility] (04/13/2021) Hemoglobin A1c POCT 6.8 % BLOOD SPECIMEN / Unknown 04/13/2021 Roni Hernandez MD LAB - POINT OF CARE ORDERABLE S Final Result * MICROALB/CREAT RATIO URINE RANDOM PANEL (02/16/2019 1:32 PM CDT) Albumin Random Urine 7.0 Not Established mcg/mL 02/16/2019 3:14 PM CDT [facility] Creatinine Urine 119 Not Established mg/dL 02/16/2019 3:14 PM CDT [facility] Comment: Result obtained by dilution. Urine Albumin/Creati nine Ratio 6 <30 mg/g 02/16/2019 3:14 PM CDT [facility] Urine URINE SPECIMEN OBTAINED BY CLEAN CATCH PROCEDURE / Unknown Collection / Unknown 02/16/2019 1:32 PM CDT 02/16/2019 1:57 PM CDT Kay Washington CLINICAL ASSESSMENT MANAGER-CAUSTIC MIXER LAB - URINE CHEMISTRY OR DERABLES Final Result [facility] [address] [place] [address], [facility] [phone] from Last 3 Months or Most Recently Relevant to Health Maintenance Insurance [facility] CARE [employer] Member Subscriber Plan / Payer (Ef fective 2018-Present) Name:Aminah Murray R Relation to Subscriber:Self Name:AMINAH MURRAY Yunior Payer ID:[id number] (NAIC) Type:HMO Address: [address] [facility] Member Subscriber Plan / Payer (Ef fective 2018-Present) Name:Aminah Murray R Relation to Subscriber:Self Name:AMINAH MURRAY Yunior Payer ID:[id number] (NAIC) Type:HMO Address: [address] CARE Member Subscriber Plan / Payer (Ef fective 2018-Present) Name:Aminah Murray R Relation to Subscriber:Self Name:AMINAH MURRAY Yunior Payer ID:[id number] (NAIC) Type:HMO Address: [address] CARE [employer] Member Subscriber Plan / Payer (Ef fective 2018-Present) Name:Aminah Murray R Relation to Subscriber:Self Name:AMINAH MURRAY Payer ID:[id number] (NAIC) Type:HMO Address: [address] [facility] Member Subscriber Plan / Payer (Ef fective 2018-Present) Name:Aminah Murray R Relation to Subscriber:Self Name:AMINAH MURRAY Yunior Payer ID:[id number] (NAIC) Type:O Address: [address] CARE Member Subscriber Plan / Payer (Ef fective 2018-Present) Name:Aminah Murray R Relation to Subscriber:Self Name:AMINAH MURRAY Yunior Payer ID:[id number] (NAIC) Type:O Address: [address] CARE Member Subscriber Plan / Payer (Ef fective 2018-Present) Name:Aminah Murray R Relation to Subscriber:Self Name:AMINAH MURRAY Yunior Payer ID:[id number] (NAIC) Type:HMO Address: [address] [facility] Member Subscriber Plan / Payer (Ef fective 2018-Present) Name:Aminah Murray R Relation to Subscriber:Self Name:MURRAYAMINAH AGUAYO Yunior Payer ID:[id number] (NAIC) Type:HMO Address: [address] [facility] Member Subscriber Plan / Payer (Ef fective 2018-Present) Name:Terri Aminah R Relation to Subscriber:Self Name:MURRAYAMINAH Mojica Payer ID:[id number] (NAIC) Type:HMO Address: [address] [facility] Member Subscriber Plan / Payer (Ef fective 2018-Present) Name:Aminah Murray R Relation to Subscriber:Self Name:AMINAH MURRAY Payer ID:[id number] ([facility]) Type:HMO Address: [address] [facility] Member Subscriber Plan / Payer (Ef fective 2018-Present) Name:Aminah Murray Relation to Subscriber:Self Name:AMINAH MURRAY Payer ID:[id number] (IC) Type:HMO Address: [address] [facility] Member Subscriber Plan / Payer (Ef fective 2018-Present) Name:Aminah Murray R Relation to Subscriber:Self Name:AMINAH MURRAY Payer ID:[id number] (NAIC) Type:HMO Address: [address] [facility] Member Subscriber Plan / Payer (Ef fective 2018-Present) Name:Aminah Murray R Relation to Subscriber:Self Name:AMINAH MURRAY Payer ID:[id number] (NAIC) Type:HMO Address: [address] [facility] Member Subscriber Plan / Payer ( fective 2018-Present) Name:Aminah Murray R Relation to Subscriber:Self Name:AMINAH MURRAY Payer ID:[id number] (NAIC) Type:HMO Address: [address] [facility] Member Subscriber Plan / Payer ( fective 2018-Present) Name:Aminah Murray R Relation to Subscriber:Self Name:AMINAH MURRAY Payer ID:[id number] (NAIC) Type:HMO Address: [address] [facility] Member Subscriber Plan / Payer ( fective 2018-Present) Name:Aminah Murray R Relation to Subscriber:Self Name:AMINAH MURRAY Payer ID:[id number] (NAIC) Type:HMO Address: [address] [facility] Member Subscriber Plan / Payer ( fective 2018-Present) Name:Aminah Murray Yunior Relation to Subscriber:Self Name:AMINAH MURRAY Yunior Payer ID:[id number] (NAIC) Type:HMO Address: [address] [facility] Member Subscriber Plan / Payer (Ef fective 2018-Present) Name:Aminah Murray R Relation to Subscriber:Self Name:AMINAH MURRAY Yunior Payer ID:[id number] ([facility]) Type:HMO Address: [address] [facility] Member Subscriber Plan / Payer (Ef fective 2018-Present) Name:Aminah Murray Relation to Subscriber:Self Name:AMINAH MURRAY Payer ID:[id number] ([facility]) Type:HMO Address: [address] [facility] Member Subscriber Plan / Payer (Ef fective 2018-Present) Name:Aminah Murray Relation to Subscriber:Self Name:TERRIAMINAH Yunior Payer ID:[id number] ([facility]) Type:HMO Address: [address] [facility] Member Subscriber Plan / Payer (Ef fective 2018-Present) Name:Aminah Murray R Relation to Subscriber:Self Name:AMINAH MURRAY Payer ID:[id number] ([facility]) Type:HMO Address: [address] [facility] Member Subscriber Plan / Payer (Ef fective 2018-Present) Name:Aminah Murray R Relation to Subscriber:Self Name:AMINAH MURRAY Payer ID:[id number] (NAIC) Type:HMO Address: [address] [facility] Member Subscriber Plan / Payer ( fective 2018-Present) Name:Aminah Murray R Relation to Subscriber:Self Name:AMINAH MURRAY Payer ID:[id number] (NAIC) Type:HMO Address: [address] CARE Member Subscriber Plan / Payer ( fective 2018-Present) Name:Aminah Murray R Relation to Subscriber:Self Name:AMINAH MURRAY Payer ID:[id number] (NAIC) Type:HMO Address: [address] CARE Member Subscriber Plan / Payer ( fective 2018-Present) Name:Aminah Murray Relation to Subscriber:Self Name:AMINAH MURRAY Yunior Payer ID:[id number] (NAIC) Type:HMO Address: [address] [facility] Member Subscriber Plan / Payer ( fective 2018-Present) Name:Aminah Murray R Relation to Subscriber:Self Name:AMINAH MURRAY Yunior Payer ID:[id number] (NAIC) Type:HMO Address: [address] [facility] Member Subscriber Plan / Payer (Ef fective 2018-Present) Name:Aminah Murray R Relation to Subscriber:Self Name:AMINAH MURRAY Payer ID:[id number] (NAIC) Type:HMO Address: [address] [facility] Member Subscriber Plan / Payer (Ef fective 2018-Present) Name:Aminah Murray R Relation to Subscriber:Self Name:AMINAH MURRAY Payer ID:[id number] (NAIC) Type:HMO Address: [address] [facility] Member Subscriber Plan / Payer (Ef fective 2018-Present) Name:Aminah Murray R Relation to Subscriber:Self Name:AMINAH MURRAY Payer ID:[id number] (NAIC) Type:HMO Address: [address] [facility] Member Subscriber Plan / Payer (Ef fective 2018-Present) Name:Aminah Murray R Relation to Subscriber:Self Name:AMINAH MURRAY Payer ID:[id number] (NAIC) Type:HMO Address: [address] [facility] Member Subscriber Plan / Payer (Ef fective 2018-Present) Name:Aminah Murray Relation to Subscriber:Self Name:AMINAH MURRAY Yuniro Payer ID:[id number] (NAIC) Type:HMO Address: [address] [facility] Member Subscriber Plan / Payer (Ef fective 2018-Present) Name:Aminah Murray R Relation to Subscriber:Self Name:AMINAH MURRAY Yunior Payer ID:[id number] (NA) Type:HMO Address: [address] [facility] Member Subscriber Plan / Payer (Ef fective 2018-Present) Name:Aminah Murray R Relation to Subscriber:Self Name:AMINAH MURRAY Yunior Payer ID:[id number] (NAIC) Type:HMO Address: [address] CARE Member Subscriber Plan / Payer (Ef fective 2018-Present) Name:Aminah Murray R Relation to Subscriber:Self Name:AMIANH MURRAY Yunior Payer ID:[id number] (NAIC) Type:HMO Address: [address] CARE Member Subscriber Plan / Payer (Ef fective 2018-Present) Name:MurrayAminah R Relation to Subscriber:Self Name:MURRAY,AMINAH Yunior Payer ID:[id number] (NAIC) Type:HMO Address: [address] [facility] Member Subscriber Plan / Payer (Ef fective 2018-Present) Name:Murray, Aminah R Relation to Subscriber:Self Name:AMINAH MURRAY Yunior Payer ID:[id number] (NAIC) Type:HMO Address: [address] [facility] Member Subscriber Plan / Payer (Ef fective 2020-Present) Name:Aminah Murray R Relation to Subscriber:Self Name:AMINAH MURRAY Payer ID:[id number] (NAIC) Type:O Address: [address] [facility] Member Subscriber Plan / Payer (Ef fective 2020-Present) Name:Aminah Murray R Relation to Subscriber:Self Name:AMINAH MURRAY Payer ID:[id number] (NAIC) Type:O Address: [address] [facility] Member Subscriber Plan / Payer (Ef fective 2020-Present) Name:Aminah Murray Relation to Subscriber:Self Name:AMINAH MURRAY Payer ID:[id number] (NAIC) Type:HMO Address: [address] [facility] MEDICAID - OUT OF STATE MEDICAID - OUT OF STATE MEDICAID - OUT OF [facility] MEDICAID - OUT OF STATE Care Teams Amusement Park Ride Mechanic Relationship Specialty Start Date End Date Roni Hernandez MD [address] [place] [address] PCP - General 04/05/21 Cherrie Prince MD [address] [place] [address] Resident - PCP 05/25/20
--- OUTSIDE RECORDS SUMMARY | 2025-05-12 13:04 | XMS_ITS | Encounter Summary ---
Author Organization [facility] Address [address] [place] [address] Care Team Providers Care Signal And Communications Maintainer Name Role Phone Kay Washington APRN-MARKET RESEARCH SPECIALIST Primary Care Provider + Cherrie Prince MD Primary Care Provider [phone] Cherrie Prince MD Primary Care Provider [phone] Cherrie Prince MD Unavailable [phone] Roni Hernandez MD Primary Care Provider [phone] Reason for Visit * Reason Onset Date Comments Results 06/15/2019 1st attempt Encounter Details Date Type Department Care Team (Late st Contact Info) Description 06/15/2019 Telephone [facility] [address] [address] Kay Washington, RAMONE-MARKET RESEARCH SPECIALIST [address] [place] [address] Results (1st attempt) Social History Tobacco Use Types Packs/Day Years Used Date Smoking Tobacco: Never Smokeless Tobacco: Never Alcohol Use Standard Drinks/Week Comments Yes 0 (1 standard drink = 0.6 oz pur e alcohol) Comments No Sex and Gender Information Value Date Recorded Sex Assigned at Not on file Legal Sex Female 7:49 AM DATA ANALYTICS SPECIALIST Gender Identity Not on file Sexual Orientation [...] VM message left requesting call back to [facility] office, hours and phone number provided: ----- Message from KEVIN Andres sent at 06/03/2019 9:50 AM DATA ANALYTICS SPECIALIST ----- Please call and let patient know [...] you. Will re-attempt at a later time ANALYTICS SPECIALIST ANALYTICS SPECIALIST documented in this encounter Plan of Treatment Not on file documented as of this encounter Visit Diagnoses Not on filedocumented in this encounter Additional Health Concerns Infection Onset Date Last Indicated Resolved Time COVID-19 Under Investigation 10/12/2019 10/12/2019 10/13/2019 12:17 AM CDT COVID-19 Under Investigation 06/02/2020 06/02/2020 06/03/2020 4:33 PM DATA ANALYTICS SPECIALIST COVID-19 Confirmed 06/02/2020 06/02/2020 0 4:34 AM DATA ANALYTICS SPECIALIST COVID-19 Under Investigation 08/14/2020 08/14/2020 08/14/2020 4:37 PM DATA ANALYTICS SPECIALIST COVID-19 Under Investigation 03/09/2021 03/09/2021 03/09/2021 6:30 PM CDT documented as of this encounter Care Teams Signal And Communications Maintainer Relationship Specialty Start Date End Date Kay Washington APRN-CNP PCP - General 05/31/19 07/19/19 Cherrie Prince MD [address] [place] [address] PCP - General 07/20/19 05/24/20 Cherrie Prince MD [address] [place] [address] PCP - General 05/25/20 04/04/21 Roni Hernandez MD [address] [place] [address] PCP - General 04/05/21 Cherrie Prince MD [address] [place] [address] Resident - PCP 05/25/20 documented as of this encounter
--- OUTSIDE RECORDS SUMMARY | 2025-05-12 13:04 | XMS_ITS | Encounter Summary ---
Author Organization [facility] Address [address] [facility] [place] [address] Care Team Providers Care Director Semiconductor Name Role Phone Yuliana Coffey Primary Care Provider + Kay Washington APRNSHAINA Primary Care Provider + Cherrie Prince MD Primary Care Provider [phone] Cherrie Prince MD Primary Care Provider [phone] Cherrie Prince MD Unavailable [phone] Roni Hernandez MD Primary Care Provider [phone] Reason for Visit * Reason Onset Date Comments Forms/questionnaires 05/28/2019 Forms/questionnaires 05/31/2019 message rel ayed Encounter Details Date Type Department Care Team (Late st Contact Info) Description 05/28/2019 Telephone [facility] [address] [facility] [address] [place] [address] Yuliana Coffey APRN-CNP [address] OF [facility] [place] [address] Forms/questionnaires; Forms/questionnaires (message relayed) Social History Tobacco Use Types Packs/Day Years Used Date Smoking Tobacco: Never Smokeless Tobacco: Never Alcohol Use Standard Drinks/Week Comments Yes 0 (1 standard drink = 0.6 oz pur e alcohol) Comments No Sex and Gender Information Value Date Recorded Sex Assigned at Not on file Legal Sex Female 7:49 AM CHANNELER Gender Identity Not on file Sexual Orientation [...] ?? Needs paperwork from PCP. ?? As PLANT DIRECTOR Padmini will be leaving, given patient's multiple, complex, medical issues, would recommend she establish in the resident clinic so she can see resident MD and attending MD. ?? Please notify on papework and assist in scheduling in the resident clinic. ?? KEVIN Estr[place] Pt verbalized understanding and was warm transferred to [facility] scheduling for assistance NELER * Telephone Encounter - Yuliana Heaton APRN-CNP - 05/28/2019 3:46 PM CHANNELER PLANT DIRECTOR Padmini is patient's PCP. Unsure why I [...] scheduling in the resident clinic. KEVIN [place]str[place] NELER * Telephone Encounter - Nelson Sun - [...] be in her chart and attached to [employer] messages. Caller is requesting to be notified at [phone] once the form has been updated and faxed to her provider Message routed to provider for review and assistance NELER documented in this encounter Plan of Treatment Not on file documented as of this encounter Visit Diagnoses Not on filedocumented in this encounter Additional Health Concerns Infection Onset Date Last Indicated Resolved Time COVID-19 Under Investigation 10/12/2019 10/12/2019 10/13/2019 12:17 AM CDT COVID-19 Under Investigation 06/02/2020 06/02/2020 06/03/2020 4:33 PM CHANNELER COVID-19 Confirmed 06/02/2020 06/02/2020 4:34 AM CHANNELER COVID-19 Under Investigation 08/14/2020 08/14/2020 08/14/2020 4:37 PM CHANNELER COVID-19 Under Investigation 03/09/2021 03/09/2021 03/09/2021 6:30 PM CDT documented as of this encounter Care Teams Director Semiconductor Relationship Specialty Start Date End Date Yuliana Coffey, RADIO TELEVISION ANNOUNCER-DUCK FARMER [address] [place] [address] PCP - General 05/27/19 05/30/19 Kay Washington, RADIO TELEVISION ANNOUNCER-DUCK FARMER [address] [place] [address] PCP - General 05/31/19 07/19/19 Cherrie Prince MD [address] [place] [address] PCP - General 07/20/19 05/24/20 Cherrie Prince MD [address] [place] [address] PCP - General 05/25/20 04/04/21 Roni Hernandez MD [address] [place] [address] PCP - General 04/05/21 Cherrie Prince MD [address] [place] [address] Resident - PCP 05/25/20 documented as of this encounter
--- OUTSIDE RECORDS SUMMARY | 2025-05-12 13:04 | XMS_ITS | Encounter Summary ---
Author Organization [facility] Health Address [address] [place] [address] Care Team Providers Care Federal Aid Coordinator Name Role Phone Cherrie Prince MD Primary Care Provider [phone] Cherrie Prince MD Unavailable [phone] Roni Hernandez MD Primary Care Provider Encounter Details Date Type Department Care Team (Late st Contact Info) Description 06/14/2020 Telephone [facility] General Internal Medicine [address] [address] Cherrie Prince MD [address] [place], [place] [id number] Social History Tobacco Use Types Packs/Day Years Used Date Smoking Tobacco: Never Smokeless Tobacco: Never Alcohol Use Standard Drinks/Week Comments Yes 0 (1 standard drink = 0.6 oz pur e alcohol) Comments No Sex and Gender Information Value Date Recorded Sex Assigned at Not on file Legal Sex Female 7:49 AM WEDDING FLORIST Gender Identity Not on file Sexual Orientation Not on file Occupation Industry Job Start Date Job End Date PMO at [employer] Not on file Not on file [...] ER event 06/13/2020. Patient Call Back number: [phone] ING FLORIST documented in this encounter Plan of Treatment Not on file documented as of this encounter Visit Diagnoses Not on filedocumented in this encounter Additional Health Concerns Infection Onset Date Last Indicated Resolved Time COVID-19 Under Investigation 08/14/2020 08/14/2020 08/14/2020 4:37 PM WEDDING FLORIST COVID-19 Under Investigation 03/09/2021 03/09/2021 03/09/2021 6:30 PM CDT documented as of this encounter Care Teams Federal Aid Coordinator Relationship Specialty Start Date End Date Cherrie Prince MD [address] [place] [address] PCP - General 05/25/20 04/04/21 Roni Hernandez MD [address] OF [facility] [place] [address] PCP - General 04/05/21 Cherrie Prince MD [address] [place] [address] Resident - PCP 05/25/20 documented as of this encounter
[2025-05-12] MEDS: HYDROmorphone HCL INJ (*CRX) 1 MG/ML SYR 0.5 MG IV PUSH (14:24)
[2025-05-12 15:05] LABS: Toxigenic C. Diff NEGATIVE (NEGATIVE)
[2025-05-12 15:14] VITALS: BP 154/81; PULSE 82; RESP 16; O2SAT 100
== END 2025-05-12 15:14 | disposition home or self-care (01) ==
PROVIDERS: Family Medicine; Emergency Provider Emergency Medicine
DX: K52.9 Noninfective gastroenteritis and colitis, unspecified (principal); C67.9 Malignant neoplasm of bladder, unspecified; I10 Essential (primary) hypertension; F17.210 Nicotine dependence, cigarettes, uncomplicated; E11.9 Type 2 diabetes mellitus without complications
CPT/HCPCS: 36415; 74177; 80053; 81001; 81025; 83690; 85025; 87493; 87798; 89055; 96361; 96374; 96375; 99284; J1171; J2405; J3010; J7030; Q9967

== ENCOUNTER 2025-06-21 09:15 | Emergency (ER) | payer OTHER, SELFPAY ==
--- NOTE | ~2025-06-21 | XR_ITS ---
EXAMINATION: XR chest 2V DATE: 06/21/2025 09:54 INDICATION: Cough TECHNIQUE: Frontal and lateral views of the chest were obtained. COMPARISON: September 20, 2020 FINDINGS: No focal consolidation effusion or definite lymphadenopathy. Heart size normal. Bones and upper abdomen unremarkable. IMPRESSION: 1. No focal acute process. Reviewed, dictated and finalized at location A. [facility] IMPRESSION: 1. No focal acute process.
[2025-06-21 09:28] VITALS: BP 134/51; PULSE 74; RESP 18; TEMP 36.6; O2SAT 99
--- NOTE | 2025-06-21 09:46 | ED.URI ---
HPI - URI/Sore Throat General Chief Complaint: Upper Respiratory Infection Stated Complaint: short of breath/congestion Time Seen by Provider: 06/21/25 09:35 Source: patient Mode of arrival: ambulatory Limitations: no limitations History of Present Illness HPI Narrative: Romelia is a 45-year-old female patient presenting to the clinic today with complaints of shortness of breath, clear productive cough, bilateral ear pain, scratchy throat, congestion, decrease in taste and smell. States she is having difficulty lying flat as she is having hard time breathing. She denies any fevers, chills, body aches. History of congestive heart failure and asthma. Did not albuterol treatment this morning around 6:00 a.m. has taken 2 COVID test this morning and both were negative. Related Data Home Medications ?Medication ?Instructions ?Recorded ?Confirmed ?Last Taken ?Type losartan 100 1 tablet PO DAILY 06/08/22 10/19/23 Unknown History mg-hydrochlorothiazide 25 mg tablet semaglutide 0.25 mg or 0.5 mg (2 0.25 mg subcut DIRECTED 04/25/23 10/19/23 Unknown History mg/3 mL) subcutaneous pen injector (Ozempic) atorvastatin 20 mg tablet 20 mg PO DAILY 10/19/23 10/19/23 Unknown History dextroamphetamine-amphetamine ER 25 mg PO DAILY 10/19/23 10/19/23 Unknown History 25 mg 24hr capsule,extend release duloxetine 30 mg capsule,delayed 30 mg PO DAILY 10/19/23 10/19/23 Unknown History release pantoprazole 40 mg tablet,delayed 40 mg PO DAILY 10/19/23 10/19/23 Unknown History release topiramate 100 mg tablet 100 mg PO BID 10/19/23 10/19/23 Unknown History carvedilol 6.25 mg tablet mg 03/01/25 Unknown History dextroamphetamine-amphetamine ER PO 03/01/25 Unknown History 30 mg 24hr capsule,extend release duloxetine 60 mg capsule,delayed mg PO 03/01/25 Unknown History release lorazepam 1 mg tablet mg 03/01/25 Unknown History Allergies Allergy/AdvReac Type Severity Reaction Status Date / Time Sulfa (Sulfonamide AdvReac Intermediate Nausea and Verified 05/12/25 12:39 Antibiotics) Vomiting Review of Systems Review of Systems: Pertinent positives per HPI. Patient denies any fever, chills, rash, headache, visual changes, dizziness, chest pain, palpitations, nausea, vomiting, diarrhea, constipation, abdominal pain, or any urinary issues. [facility] Past Medical History Medical History Acute viral syndrome Anemia Anxiety Hypothyroidism Diabetes Endometriosis GERD (gastroesophageal reflux disease) Tuberculosis Exposed to TB at age 4, took medication Pneumonia Bronchitis Asthma Hypertension Pericarditis Seizures Tonsillitis Surgical History Surgical History H/O: hysterectomy History of cholecystectomy Hx of tonsillectomy Family History Family History Mother Family history of malignant neoplasm of breast in first degree relative Father Family history of malignant neoplasm of esophagus Sibling Family history of malignant neoplasm of esophagus Social History Social History Alcohol intake: current Living arrangements: with family Gender identity (if verbalized by the patient): Female Sexual Orientation (if Verbalized by the Patient): Straight or Heterosexual Spiritual care concerns: No Comments At the time of my signature, I reviewed and agree with the nursing past medical, surgical, social, and family history. There is no relevant family history pertinent to the patient complaint. Exam Narrative: General: Well-developed, morbidly obese, in no apparent distress Head: Normocephalic, atraumatic Eyes: Pupils equally round and reactive to light bilaterally, EOM intact, sclera and conjunctive clear, no discharge, lids normal Ears: TMs intact and congested, ear canals clear, no drainage, grossly hearing normal. Nose: Nares patent, clear discharge, mild inflammation, no sinus tenderness. Mouth: Oropharynx without lesions or masses, good dentition, MMM. Postnasal drip Neck: Supple, trachea midline, no enlargement of anterior or posterior cervical nodes, no thyroid masses or goiter palpable. Cardio: Regular rate and rhythm, s1 and s2 normal, no murmur appreciated. Resp: Diminished in the bases otherwise clear, no rhonchi, rales, wheezing or rubs Musculoskeletal: No deformity, non-tender to palpation, grossly normal range of motion, muscle strength strong and equal, peripheral pulse strong, no edema, no cyanosis, normal gait and station Course Course Level of Care: Express Care Visit Vital Signs Vital signs: Vital Signs Temperature 36.6 C 06/21/25 09:28 Pulse Rate 74 06/21/25 09:28 Respiratory Rate 18 06/21/25 09:28 Blood Pressure 134/51 L 06/21/25 09:28 Pulse Oximetry 99 06/21/25 09:28 Oxygen Delivery Room Air 06/21/25 09:28 Temperature 36.6 C 06/21/25 09:28 Pulse Rate 74 06/21/25 09:28 Respiratory Rate 18 06/21/25 09:28 Blood Pressure 134/51 L 06/21/25 09:28 Pulse Oximetry 99 06/21/25 09:28 Oxygen Delivery Room Air 06/21/25 09:28 MDM MDM Narrative Medical decision making narrative: At the time of visit patient is resting comfortably on the exam table. Patient appears to be nontoxic. Complaints of shortness of breath, clear productive cough, bilateral ear pain, scratchy throat, congestion, decrease in taste and smell. States she is having difficulty lying flat as she is having hard time breathing. She denies any fevers, chills, body aches. History of congestive heart failure and asthma. Did not albuterol treatment this morning around 6:00 a.m. has taken 2 COVID test this morning both were negative. On exam patient has bilateral TMs intact congested, clear nasal drainage, mild anterior turbinate inflammation, oral pharynx with postnasal drip, lung sounds diminished in the bases otherwise clear, heart rates regular rate and rhythm, no lower extremity edema. Offer to do COVID and flu testing and patient declined. Chest x-ray and breathing treatment was ordered. Medications: DuoNeb hand-held treatment was given in the clinic today. Diagnostics: Chest x-ray was negative for any acute cardiopulmonary process. Plan: I suspect patient has bronchitis. Prescription for prednisone, albuterol inhaler, and Tessalon Perles was sent to the pharmacy. Supportive measures were discussed with the patient and they voiced understanding discharge instructions and agrees to treatment plan. Return precautions reviewed Differential Diagnosis Differential Diagnosis: Differential diagnostic considerations for upper respiratory infection include upper respiratory infection, croup, otitis media, sinusitis, viral infection, bronchitis, influenza, pharyngitis, strep, uvulitis. Imaging Data Radiologist's impression: ITS Impressions Chest X-Ray 06/21/25 09:55 IMPRESSION: 1. No focal acute process. Discharge Plan Discharge Clinical Impression: Bronchitis Patient Disposition: Home Condition: Stable Instructions: Antibiotic Form, Acute Bronchitis (ED) Additional Instructions: Chest x-ray is negative for any acute cardiopulmonary process in the clinic today. No sign of bacterial infection in the clinic today Take prescription medications only as prescribed-prednisone, Tessalon Perles, and albuterol inhaler Increase fluids and stay well hydrated May take Tylenol or motrin as directed on bottle for pain/fever May use Flonase 1 spray in each nare daily May take OTC antihistamines such as Zyrtec or Claritin daily as directed on bottle May apply Vicks vapor rub to chest to open sinuses Sinus rinses for congestion Cepacol spray, cough drops, throat lozenges, warm tea with honey/lemon, gargle salt water to soothe throat BRAT diet for diarrhea Clear liquids x 24 hours then advance as tolerated for nausea/vomiting Go to the ED if you develop a worsening in your condition- high fever not controlled by Tylenol or Motrin, dehydration, weakness, lethargy, shortness of breath, or chest pain. Follow up with your PCP in 3-5 days if symptoms persist. Patient Language: Citizen Of [place] Prescriptions: New albuterol sulfate 90 mcg/actuation HFA aerosol inhaler 2 puff inhalation Q4-6H PRN (Reason: shortness of breath or wheezing) 30 Days Qty: 8.5 0RF prednisone 20 mg tablet 40 mg PO DAILY 5 Days Qty: 10 0RF benzonatate 200 mg capsule 200 mg PO TID 7 Days Qty: 21 0RF No Action losartan-hydrochlorothiazide 100-25 mg tablet 1 tablet PO DAILY Ozempic 0.25 mg or 0.5 mg (2 mg/3 mL) pen injector 0.25 mg SUBCUT DIRECTED atorvastatin 20 mg tablet 20 mg PO DAILY pantoprazole 40 mg tablet,delayed release (DR/EC) 40 mg PO DAILY topiramate 100 mg tablet 100 mg PO BID dextroamphetamine-amphetamine 25 mg capsule,extended release 24hr 25 mg PO DAILY duloxetine 30 mg capsule,delayed release(DR/EC) 30 mg PO DAILY carvedilol 6.25 mg tablet lorazepam 1 mg tablet dextroamphetamine-amphetamine 30 mg capsule,extended release 24hr PO duloxetine 60 mg capsule,delayed release(DR/EC) PO methylprednisolone [Medrol (Ricki)] 4 mg tablets,dose pack See Rx Instructions .ROUTE .COMPLEX Qty: 21 0RF Rx Instructions: orally per package directions amoxicillin-pot clavulanate 875-125 mg tablet 1 tablet PO Q12H 10 Days Qty: 20 0RF meclizine 25 mg tablet 25 mg PO BID PRN (Reason: dizziness) Qty: 20 0RF ondansetron 4 mg tablet,disintegrating 4 mg PO Q8H PRN (Reason: nausea and vomiting) Qty: 20 0RF diazepam [Valium] 2 mg tablet 2 mg PO BID PRN (Reason: vertigo) Qty: 10 0RF hydrocodone-acetaminophen 5-325 mg tablet 1 tablet PO Q6H PRN (Reason: pain (scale score 4-6)) Qty: 2 0RF dicyclomine 10 mg capsule 10 mg PO TID Qty: 14 0RF Follow-up/Referrals: PHYSICIAN,PRODUCTION DISPATCHER [Primary Care Provider, Internal Medicine] Stand Alone Forms: Work/School Release IP Time of Disposition: 10:13 Quality NIHSS Nursing Documentation ED NIHSS nursing documentation: reviewed/agree
[2025-06-21] MEDS: IPRATROPIUM 0.5 MG/ALBUTEROL SULFATE 2.5 MG (BASE) AMPUL.NEB 3 ML INHALATION (10:01)
== END 2025-06-21 10:25 | disposition home or self-care (01) ==
PROVIDERS: Emergency Provider Nurse Practitioner Family
DX: J40 Bronchitis, not specified as acute or chronic (principal); E11.9 Type 2 diabetes mellitus without complications; Z79.85 Long-term (current) use of injectable non-insulin antidiabetic drugs; I11.0 Hypertensive heart disease with heart failure; I50.9 Heart failure, unspecified; G40.909 Epilepsy, unspecified, not intractable, without status epilepticus; K21.9 Gastro-esophageal reflux disease without esophagitis; N80.9 Endometriosis, unspecified; E03.9 Hypothyroidism, unspecified; J45.909 Unspecified asthma, uncomplicated; F41.9 Anxiety disorder, unspecified
CPT/HCPCS: 71046; 94640; 99213; G0463